=== PATIENT | female | born 1980 | race Caucasian/White ===

== ENCOUNTER 2024-02-10 12:46 | Emergency (ER) | payer MEDICARE, MEDICAID, SELFPAY ==
[2024-02-10 13:01] VITALS: BP 136/89; PULSE 74; TEMP 37.1; O2SAT 98; BMI 25.4
--- NOTE | 2024-02-10 13:41 | CT_ITS ---
The [address] [address] Patient Name: CHRISTINE FLANNERY MRN: [id number] date: 1980 Sex: F Assigned Patient Location: ER Current Patient Location: ER Accession/Order Number: [id number] Exam Date: 02/10/2024 14:35 Report Date: 02/10/2024 15:15 At the request of: LINNETTE GUIDRY Procedure: CT head/brain w con EXAMINATION: CT head/brain w con, 02/10/2024 2:35 PM EDT HISTORY: Headache/chronic HSV infection COMPARISON: None. TECHNIQUE: CT scan of the head was performed without IV contrast. CT dose reduction technique was used, including Automated Exposure Control. FINDINGS: BRAIN PARENCHYMA/CSF SPACES: Ventricles are normal in size for age. There is no hemorrhage, mass effect or midline shift. There are no other significant findings. PARANASAL SINUSES: Clear. SKULL BASE AND CALVARIUM: Normal. EXTRACRANIAL SOFT TISSUES: Normal. CT/CT head/brain w con IMPRESSION: No acute intracranial findings. Electronically authenticated by: LAYNE IBANEZ Date: 02/10/2024 15:15
[2024-02-10 14:10] LABS: BUN Creatinine Ratio 10.5; Calcium 9.9 mg/dL (8.5-10.1); Carbon Dioxide 29.6 mmol/L (21.0-32.0); Chloride 101 mmol/L (98-107); Estimated GFR (African America >60 (>=60); Estimated GFR (Non-African Ame >60 (>=60); Glucose 113 mg/dL (74-106); Potassium 3.6 mmol/L (3.5-5.1); Sodium 138 mmol/L (136-145)
--- NOTE | 2024-02-10 15:21 | ED_ITS ---
HPI HPI - General Adult General Chief complaint: Weakness Stated complaint: ABNORMAL LAB VALUE Time Seen by Provider: 02/10/24 13:41 Source: patient Mode of arrival: walk-in History of Present Illness HPI narrative: This patient was seen after obtaining report from the nursing staff. This patient tells me that she is here because she wants antiviral intravenous therapy. Backing up, she states that for 2 years she has been battling with chronic symptomatology from my pain muscle aches and pains skin rashes headaches. She goes to a clinic in [place]. She showed me her patient's chart and she had extensive laboratory testing with viral titers. Apparently she just got the results of an HSV test last night and she did not want to wait till tomorrow to go over the results with her clinicians. She did test positive HSV- 2 titer. HSV 1 was negative. Her liver function test CBC and chemistries were essentially normal. She had a small increase in her platelet count. She has never seen an eye doctor despite having eye problems for 2 years. She has not seen infectious disease or assistant art director. She has no knowledge of when she actually had HSV-2 infection she says she also has skin lesions that she has been battling for couple of years. She does not have any new chest pain or shortness of breath. She has chronic headache. She does not exhibit any photosensitivity as noted below. She is extraordinarily anxious and frustrated because she does not think anyone is helping her. She decided to come to the [facility] and set up following up with her physicians tomorrow and getting referral perhaps. She is not a drug abuser and has no history of HIV or other immunocompromising autoimmune diseases that she is aware of. Related Data Home Medications ?Medication ?Instructions ?Recorded ?Confirmed atorvastatin 40 mg tablet 40 mg PO DAILY 02/10/24 02/10/24 dextroamphetamine-amphetamine ER 20 mg PO BID 02/10/24 02/10/24 20 mg 24hr capsule,extend release lamotrigine 200 mg tablet 200 mg PO DAILY 02/10/24 02/10/24 lumateperone 42 mg capsule 42 mg PO DAILY 02/10/24 02/10/24 (Caplyta) metformin 500 mg tablet 500 mg PO BID 02/10/24 02/10/24 promethazine 25 mg tablet 25 mg PO BID 02/10/24 02/10/24 tizanidine 4 mg tablet 8 mg PO QPM 02/10/24 02/10/24 Allergies Allergy/AdvReac Type Severity Reaction Status Date / Time No Known Drug Allergies Allergy Verified 02/10/24 13:04 Opioid HPI Opioid Management Most Recent Opioid Data: No Data to Display Exam Narrative Exam Narrative: Her vital signs are stable she does not appear ill or toxic. She is fully ambulatory she shows no gait disturbance. On HEENT examination there is no pharyngitis there is no viral enanthem's. There is no evidence of gingivostomatitis or any type of recent viral infection. Her neck is soft and supple with no meningeal irritation or nuchal rigidity. She does not have photosensitivity. Her conjunctiva are moist and pink the corneas are clear extraocular muscles are normal. She has no swelling of the eyelids. No purulent drainage or discharge. Her lungs were clear with no wheeze rales or rhonchi. Heart sounds are normal with no murmur. She does not have any supraclavicular or cervical adenitis. Abdomen is normal with no organomegaly or splenomegaly. She has no abdominal tenderness. She has multiple healing scars skin disruptions throughout the extremities but no bull's-eye lesions or target lesions. She has no petechia or posterior purpura. Palmar surface does not have any rash. Constitutional Vital Signs, click to edit/add: Last Vital Signs Temp 98.7 F 02/10/24 13:01 Pulse 74 02/10/24 13:01 Resp 16 02/10/24 13:01 BP 136/89 02/10/24 13:01 Pulse Ox 98 02/10/24 13:01 O2 Del Method Room Air 02/10/24 13:01 Course Vital Signs Vital signs: Vital Signs Temperature 98.7 F 02/10/24 13:01 Pulse Rate 74 02/10/24 13:01 Respiratory Rate 16 02/10/24 13:01 Blood Pressure 136/89 02/10/24 13:01 Pulse Oximetry 98 02/10/24 13:01 Oxygen Delivery Method Room Air 02/10/24 13:01 Temperature 98.7 F 02/10/24 13:01 Pulse Rate 74 02/10/24 13:01 Respiratory Rate 16 02/10/24 13:01 Blood Pressure 136/89 02/10/24 13:01 Pulse Oximetry 98 02/10/24 13:01 Oxygen Delivery Method Room Air 02/10/24 13:01 Medical Decision Making MDM Narrative Medical decision making narrative: I spoke with this patient's sister at her request and indicated to her that she just within 12 hours got the results of a HSV-2 titer that are probably chronic in nature. She has no ongoing HSV infections at this time. A CT scan was done at her request despite the lack of any physical findings on her examination to suggest any type of TRIAGE TECHNICIAN infection and hence I do not believe she needs TRIAGE TECHNICIAN lumbar puncture at this time. I spoke with our pharmacist and a course for acute infection or suppression acyclovir would be a drug of choice. She is begging to be started on symptoms I have told her that I am not sure that this is what chronic disease would call for but we can start her on that. I have strongly emphasized that she sees her primary care doctor who ordered this extensive battery of test and get referral to the infectious disease specialist Dr. Johnny Monreal in [facility]. Incidentally her son was evaluated and is very healthy with no evidence of any type of chronic infection here. She will be placed on acyclovir Lab Data Labs: Lab Results 02/10/24 Range/Units 13:51 Sodium 138 (136-145) mmol/L Potassium 3.6 (3.5-5.1) mmol/L Chloride 101 (98-107) mmol/L Carbon Dioxide 29.6 (21.0-32.0) mmol/L Anion Gap 11.0 BUN 8.0 (7.0-18.0) mg/dL Creatinine 0.76 (0.55-1.02) mg/dL Est GFR ( Amer) >60 (>=60) Est GFR (Non-Af Amer) >60 (>=60) BUN/Creatinine Ratio 10.5 Glucose 113 H (74-106) mg/dL Calcium 9.9 (8.5-10.1) mg/dL Discharge Plan Discharge Stand Alone Forms: Portal Instructions Chief Complaint: Weakness Clinical Impression: HSV-2 seropositive Patient Disposition: Home, Self-Care Time of Disposition Decision: 15:28 Prescriptions / Home Meds: No Action atorvastatin 40 mg tablet 40 mg PO DAILY dextroamphetamine-amphetamine 20 mg capsule,extended release 24hr 20 mg PO BID lamotrigine 200 mg tablet 200 mg PO DAILY Caplyta 42 mg capsule 42 mg PO DAILY metformin 500 mg tablet 500 mg PO BID promethazine 25 mg tablet 25 mg PO BID tizanidine 4 mg tablet 8 mg PO QPM Print Language: Yoruba Additional Instructions: See your primary care doctor or the test to consider referral to infectious disease. Acyclovir Referrals: Guilherme Jimenes DO [Primary Care Provider] - 1 week
== END 2024-02-10 15:36 | disposition home or self-care (01) ==
PROVIDERS: Emergency Provider Emergency Medicine Emergency Medical Services; PCP Student in an Organized Health Care Education/Training Program
DX: B00.9 Herpesviral infection, unspecified (principal)
CPT/HCPCS: 36415; 70460; 80048; 99284

== ENCOUNTER 2024-10-24 23:16 | Emergency (ER) | payer MEDICARE, MEDICAID, SELFPAY ==
[2024-10-24 23:22] VITALS: BP 167/99; PULSE 76; TEMP 36.9; O2SAT 99; BMI 24.7
[2024-10-25] MEDS: KETOROLAC TROMETHAMINE 10 MG TABLET PO (00:06)
--- NOTE | 2024-10-25 00:06 | ED_ITS ---
HPI - Ear Problem General Chief complaint: Ear Stated complaint: ear Time Seen by Provider: 10/24/24 23:44 Source: patient Mode of arrival: walk-in Limitations: no limitations History of Present Illness HPI Narrative: cc = right ear pain Pt complains of right ear pain. She said that she was diagnosed with ear infection on 10/19/24 after experiencing URI symptoms and being diagnosed with viral URI at [facility] ED and they enver checked my ears . The [facility] provider prescribed amoxicillin for the right otitis media and then her eardrum perforated 2 days ago and she returned to the [facility] and was switched to cefdinir. Tonight the pain dramatically worsened. Related Data Home Medications ?Medication ?Instructions ?Recorded ?Confirmed acyclovir 200 mg capsule 200 mg PO DAILY 02/10/24 02/10/24 atorvastatin 40 mg tablet 40 mg PO DAILY 02/10/24 02/10/24 dextroamphetamine-amphetamine ER 20 mg PO BID 02/10/24 02/10/24 20 mg 24hr capsule,extend release lamotrigine 200 mg tablet 200 mg PO DAILY 02/10/24 02/10/24 lumateperone 42 mg capsule 42 mg PO DAILY 02/10/24 02/10/24 (Caplyta) metformin 500 mg tablet 500 mg PO BID 02/10/24 02/10/24 promethazine 25 mg tablet 25 mg PO BID 02/10/24 02/10/24 tizanidine 4 mg tablet 8 mg PO QPM 02/10/24 02/10/24 Previous Rx's ?Medication ?Instructions ?Recorded nabumetone 750 mg tablet 750 mg PO BID PRN pain #14 tabs 10/25/24 ofloxacin 0.3 % ear drops 10 drp otic (ear) DAILY 7 days #10 10/25/24 mL Allergies Allergy/AdvReac Type Severity Reaction Status Date / Time No Known Drug Allergies Allergy Verified 10/24/24 23:26 PFSH PFSH Social History Little interest or pleasure in doing things: not at all Feeling down, depressed, or hopeless: not at all Exam Narrative Exam Narrative: Nurses notes and vital signs reviewed and patient is not hypoxic. afebrile General: Well-appearing and in no apparent distress. Skin: Warm, dry, no pallor noted. No rash. Head: Normocephalic, atraumatic. Eye: Pupils are equal, round and EOMI. No scleral icterus. Ears, Nose, Mouth, and Throat: There is some dried wax in the right external auditory canal and the right EAC is swollen markedly tender. I am able to visualize the right tympanic membrane and I do not appreciate any acute perforation although there is some dullness and erythema to the TM. The left TM is clear. Oral mucosa is moist Cardiovascular: Regular Rate and Rhythm without murmur, gallop or rub. Respiratory: No accessory muscle use or respiratory distress. Lungs are clear to auscultation, no wheezing, rales or rhonchi Neurological: A&O x4. No cranial nerve dysfunction observed. No truncal ataxia. Moves all extremities. Sensation intact. Psychiatric: Cooperative and interactive. Normal mood and affect. Constitutional Vital Signs, click to edit/add: Last Vital Signs Temp 98.5 F 10/24/24 23:22 Pulse 76 10/24/24 23:22 Resp 16 10/24/24 23:22 BP 167/99 H 10/24/24 23:22 Pulse Ox 99 10/24/24 23:22 O2 Del Method Room Air 10/24/24 23:22 Course Vital Signs Vital signs: Vital Signs Temperature 98.5 F 10/24/24 23:22 Pulse Rate 76 10/24/24 23:22 Respiratory Rate 16 10/24/24 23:22 Blood Pressure 167/99 H 10/24/24 23:22 Pulse Oximetry 99 10/24/24 23:22 Oxygen Delivery Method Room Air 10/24/24 23:22 Temperature 98.5 F 10/24/24 23:22 Pulse Rate 76 10/24/24 23:22 Respiratory Rate 16 10/24/24 23:22 Blood Pressure 167/99 H 10/24/24 23:22 Pulse Oximetry 99 10/24/24 23:22 Oxygen Delivery Method Room Air 10/24/24 23:22 Medical Decision Making MDM Narrative Medical decision making narrative: Patient's exam is more consistent with early acute right otitis externa than a perforated right tympanic membrane or otitis media, although there is some erythema to the visualized TM. Patient was given oral Toradol in the emergency department discharged home with a prescription for oral nabumetone. She also was prescribed ciprofloxacin drops, which are not ototoxic. She was given referral information for Dr. Marroquin, ear nose and throat physician, for follow-up Discharge Plan Discharge Chief Complaint: Ear Clinical Impression: Otitis media, Otitis externa Patient Disposition: Home, Self-Care Time of Disposition Decision: 00:02 Prescriptions / Home Meds: New nabumetone 750 mg tablet 750 mg PO BID PRN (Reason: pain) Qty: 14 0RF ofloxacin 0.3 % drops 10 drp otic (ear) DAILY 7 Days Qty: 10 0RF Rx Instructions: apply to affected (RIGHT) ear No Action atorvastatin 40 mg tablet 40 mg PO DAILY dextroamphetamine-amphetamine 20 mg capsule,extended release 24hr 20 mg PO BID lamotrigine 200 mg tablet 200 mg PO DAILY Caplyta 42 mg capsule 42 mg PO DAILY metformin 500 mg tablet 500 mg PO BID promethazine 25 mg tablet 25 mg PO BID tizanidine 4 mg tablet 8 mg PO QPM acyclovir 200 mg capsule 200 mg PO DAILY Print Language: Kyrgyz Instructions: Ear Infection (ED) Referrals: Guilherme Jimenes DO [Primary Care Provider] - 1 week
== END 2024-10-25 00:30 | disposition home or self-care (01) ==
PROVIDERS: Emergency Provider Emergency Medicine; PCP Student in an Organized Health Care Education/Training Program
DX: H60.91 Unspecified otitis externa, right ear (principal); H66.91 Otitis media, unspecified, right ear
CPT/HCPCS: 99283

== ENCOUNTER 2024-10-28 23:01 | Emergency (ER) | payer MEDICARE, MEDICAID, SELFPAY ==
[2024-10-28 23:04] VITALS: BP 133/100; PULSE 100; TEMP 36.7; O2SAT 99; BMI 24.7
[2024-10-28 23:30] VITALS: O2SAT 99
[2024-10-28] MEDS: HYDROXYZINE PAMOATE 25 MG CAPSULE PO (23:42)
[2024-10-28 23:54] LABS: Bilirubin Urine NEGATIVE (NEGATIVE); Blood Urine NEGATIVE (NEGATIVE); Clarity Urine CLEAR (CLEAR); Color Urine YELLOW (YELLOW); Glucose Urine UA NEGATIVE (NEGATIVE); Ketones Urine NEGATIVE (NEGATIVE); Leukocyte Esterase Urine NEGATIVE (NEGATIVE); Nitrite Urine POSITIVE (NEGATIVE); Protein Urine NEGATIVE (NEG/TRACE); Specific Gravity Urine <=1.005 (1.005-1.025); Urobilinogen Urine 0.2 EU/dL (0.2-1.0); pH Urine 5.5 (5.0-9.0)
[2024-10-29 00:03] LABS: Bacteria Urine NONE SEEN #/HPF (NONE SEEN); Cast Seen? NONE SEEN #/LPF (NONE SEEN); Crystals Seen? None Seen #/HPF (None Seen); Mucus Urine NONE SEEN (NONE SEEN); RBC Urine 0-2 #/HPF (0-2); Squamous Epithelial Cell Urine FEW #/LPF (NONE/RARE); Urine Culture Indicated NO
[2024-10-29 00:06] LABS: Amphetamine Screen Urine POSITIVE (NEGATIVE); Barbiturates Screen Urine NEGATIVE (NEGATIVE); Benzodiazepines Screen Urine NEGATIVE (NEGATIVE); Buprenorphine Screen Urine NEGATIVE (NEGATIVE); Cannabinoid Screen Urine POSITIVE (NEGATIVE); Cocaine Screen Urine NEGATIVE (NEGATIVE); Methadone Screen Urine NEGATIVE (NEGATIVE); Methamphetamines Screen Urine NEGATIVE (NEGATIVE); Opiate Screen Urine NEGATIVE (NEGATIVE); Oxycodone Screen Urine NEGATIVE (NEGATIVE); Phencyclidine Screen Urine NEGATIVE (NEGATIVE); Tricyclic Antidepressant Urine NEGATIVE (NEGATIVE)
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
[2024-10-29 00:43] VITALS: PULSE 84; O2SAT 98
[2024-10-29 00:46] VITALS: BP 128/84
== END 2024-10-29 00:45 | disposition home or self-care (01) ==
PROVIDERS: Emergency Provider Emergency Medicine; PCP Student in an Organized Health Care Education/Training Program
DX: Z04.89 Encounter for examination and observation for other specified reasons (principal); Z79.899 Other long term (current) drug therapy
CPT/HCPCS: 80307; 81001; 99284; Q0177

== ENCOUNTER 2025-01-13 16:16 | Emergency (ER) | payer MEDICARE, MEDICAID, SELFPAY ==
[2025-01-13 16:25] VITALS: BP 127/85; PULSE 84; TEMP 36.7; O2SAT 96; BMI 25.1
--- NOTE | 2025-01-13 16:40 | ED.GENADUL1 ---
HPI HPI - General Adult General Chief complaint: Eye Problems Stated complaint: L EYE ISSUE Time Seen by Provider: 01/13/25 16:21 Source: patient Mode of arrival: walk-in History of Present Illness HPI narrative: 44-year-old female presents for a red area on her left eye. She noticed it this morning. She does not recall any trauma or vomiting or sneezing or coughing. She is not on blood thinners. No other bruising. She went to an urgent care center and they told her to come directly here. Related Data Home Medications ?Medication ?Instructions ?Recorded ?Confirmed atorvastatin 40 mg tablet 40 mg PO DAILY 02/10/24 01/13/25 dextroamphetamine-amphetamine ER 20 mg PO BID 02/10/24 01/13/25 20 mg 24hr capsule,extend release metformin 500 mg tablet 500 mg PO BID 02/10/24 01/13/25 promethazine 25 mg tablet 25 mg PO BID 02/10/24 01/13/25 tizanidine 4 mg tablet 8 mg PO QPM 02/10/24 01/13/25 cyclobenzaprine 10 mg tablet mg 01/13/25 Allergies Allergy/AdvReac Type Severity Reaction Status Date / Time No Known Drug Allergies Allergy Verified 01/13/25 16:23 Opioid HPI Opioid Management Most Recent Opioid Data: Last Pain Scale 10 10/25/24, 00:06 Ur Phencyclidine Scrn, (NEGATIVE) Negative 10/28/24, 23:45 Review of Systems ROS Narrative A ten point review of systems is negative except as noted above. PFSH PFSH Social History Little interest or pleasure in doing things: several days Feeling down, depressed, or hopeless: several days Exam Narrative Exam Narrative: Nurses note and vital signs reviewed and patient is not hypoxic. General: The patient appears well and in no apparent distress. Patient is resting comfortably on cart. Skin: Warm, dry, no pallor noted. There is no rash noted. Head: Normocephalic, atraumatic Eye: Right conjunctiva is normal. The left has a superior subconjunctival hemorrhage. Globe intact. Anterior chamber clear. No periorbital swelling or erythema. Extraocular movements are intact. Ears, Nose, Mouth, and Throat: oral mucosa is moist. Nares patent. Cardiovascular: Regular Rate and Rhythm Respiratory: Patient is in no distress, no accessory muscle use, lungs are clear to auscultation, no wheezing, rales or rhonchi Back: non-tender GI: Soft and nontender Musculoskeletal: The patient has no evidence of calf tenderness, no pitting edema, symmetrical pulses noted bilaterally Neurological: A&O, normal speech Psychiatric: Cooperative Constitutional Vital Signs, click to edit/add: Last Vital Signs Temp 98.1 F 01/13/25 16:25 Pulse 84 01/13/25 16:25 Resp 16 01/13/25 16:25 BP 127/85 01/13/25 16:25 Pulse Ox 96 01/13/25 16:25 O2 Del Method Room Air 01/13/25 16:25 Course Vital Signs Vital signs: Vital Signs Temperature 98.1 F 01/13/25 16:25 Pulse Rate 84 01/13/25 16:25 Respiratory Rate 16 01/13/25 16:25 Blood Pressure 127/85 01/13/25 16:25 Pulse Oximetry 96 01/13/25 16:25 Oxygen Delivery Method Room Air 01/13/25 16:25 Temperature 98.1 F 01/13/25 16:25 Pulse Rate 84 01/13/25 16:25 Respiratory Rate 16 01/13/25 16:25 Blood Pressure 127/85 01/13/25 16:25 Pulse Oximetry 96 01/13/25 16:25 Oxygen Delivery Method Room Air 01/13/25 16:25 Medical Decision Making MDM Narrative Medical decision making narrative: Findings are discussed with the patient and she was reassured. Treatment diagnosis and follow-up were discussed thoroughly. Differential Diagnosis Differential Diagnosis: Subconjunctival hemorrhage, conjunctivitis Discharge Plan Discharge Chief Complaint: Eye Problems Clinical Impression: Subconjunctival hemorrhage Patient Disposition: Home, Self-Care Time of Disposition Decision: 16:38 Condition: Good Mode of Transportation: Private Vehicle Prescriptions / Home Meds: No Action atorvastatin 40 mg tablet 40 mg PO DAILY dextroamphetamine-amphetamine 20 mg capsule,extended release 24hr 20 mg PO BID metformin 500 mg tablet 500 mg PO BID promethazine 25 mg tablet 25 mg PO BID tizanidine 4 mg tablet 8 mg PO QPM cyclobenzaprine 10 mg tablet Print Language: Tamazight Referrals: Guilherme Jimenes DO [Primary Care Provider] - 1 week
--- OUTSIDE RECORDS SUMMARY | 2025-01-13 18:50 | XMS_ITS | CCD ---
Author Organization [facility] Care Team Providers Care Subway Train Driver Name Role Phone Link, DO Erlin Fuchs Primary Care Provider [phone] YOSEF Pat Attending Provider Link, Erlin Fuchs Primary Care Physician [phone] YUMIKO .JODY Admitting Unavailable JODY CASTREJON Attending Unavailable [facility] Unavailable AAYUSH ., ANIBAL TOUSSAINT Consulting Unavailabl e Link, DO Erlin Fuchs Primary Care Provider [phone] Link, DO Erlin Fuchs Attending Provider Link, DO Erlin Fuchs Primary Care Provider [phone] Link, DO Erlin Fuchs Attending Provider Marin Garcia Primary Care Provider Erlin Felipe MD Unavailable BRENTON Adamson Emergency Provider Link, DO Erlin Fuchs Primary Care Provider [phone] BRENTON Low Emergency Provider Link, DO Erlin Fuchs Primary Care Provider BRENTON Low Emergency Provider [facility] Primary Care Prov ider DO Adoflo Tsai Emergency Provider [phone] DO Guilherme Dotson Attending Provider [facility] Primary Care Prov ider DO Guilherme Dotson Primary Care Provider YOSEF Pat Attending Provider [phone] [facility] Primary Care Prov ider DO Guilherme Dotson Attending Provider Guilherme Dotson DO Primary Care Provider [phone] Adolfo Tsai DO Emergency Provider [phone] Sandra Desai MD Emergency Provider [phone] Guilherme Dotson MD Primary Care Provider [phone] Adolfo Tsai Admitting Unavailable [facility], [facility] Adolfo Tsai Attending Unavailable Adolfo Tsai Admitting Unavailable Adolfo Tsai Attending Unavailable Guilherme Dotson Primary [facility] Unavailable [facility], [facility] Care [facility] Guilherme Dotson Attending Unavailable Guilherme Dotson Admitting Unavailable Guilherme Dotson Attending Unavailable Guilherme Dotson Admitting Unavailable Guilherme Dotson Primary Care Unavailable Brisa Pat Admitting Unavailable Brisa Pat Attending Unavailable [facility], [facility] Guilherme Dotson Attending Unavailable Guilherme Dotson Admitting Unavailable [facility], [facility] Guilherme Dotson Attending Unavailable Guilherme Dotson Admitting Unavailable [facility], [facility] Guilherme Dotson Attending Unavailable Guilherme Dotson Admitting Unavailable Sandra Desai Attending Unavailable Guilherme Dotson Primary Care Unavailable Sandra Desai Admitting Unavailable YASMIN MARTINEZ Attending UnavailYASMIN Munson Attending UnavailVIDA Park Referring Unavailable YASMIN MARTINEZ Attending UnavailYASMIN Munson Attending UnavailYASMIN Munson Attending UnavailVIDA Park Attending Unavailable GUILHERME DOTSON Referring Unavailable Medications Current Medications Medication Drug Class(es) Dates Sig (Normalized) Sig (Original) acetaminophen 325 mg / HYDROcodone bitartrate 5 mg oral tablet (17 sources) Opioid Agonist Start: 05-02-2021 [place] 325 mg-5 mg oral tablet 1 tab(s), Oral, q4hr for pain, 12 tab(s), Refill(s) 0, 1-2 tabs PO q 4-6 hrs prn severe pain. Do NOT exceed 10 tabs per day, [facility] #[id number], 157, cm, 04/26/21 7:56:00 EDT, Height/Length Dosing, 67.5, kg, 04/26/21 7:56:00 EDT, Weight Dosing... Start Date: 05/02/21 Status: Ordered Start: 10-25-2020 End: 11-16-2020 take 1 tablet by mouth every six hours as needed for pain Hydrocodone-Acetaminophen 5-325 mg table t Discontinued 1 TAB PO Q6H as needed for pain 10 October 25, 2020 November 16, 2020 8:39pm acyclovir 400 mg oral tablet (11 sources) Herpesvirus Nucleoside Analog DNA Polymerase Inhibitor, Herpes Simplex Virus Nucleoside Analog DNA Polymerase Inhibitor, Herpes Zoster Virus Nucleoside Analog DNA Polymerase Inhibitor Start: 03-13-2024 Acyclovir 400 mg tablet Active 400 MG PO March 12, 2024 11:00pm Start: 02-10-2024 take 1 capsule by mo [facility] five times daily acyclovir (Zovirax) 200 MG capsule TAKE 1 CAPSULE (200mg) BY MOUTH FIVE times daily for TEN days 02/10/2024 Active 24 hr amphetamine aspartate 5 mg / amphetamine sulfate 5 mg / dextroamphetamine saccharate 5 mg / dextroamphetamine sulfate 5 mg extended release oral capsule (20 sources) Central Nervous System Stimulant Start: 08-25-2023 take 1 capsule by mouth twice daily Dextroamphetamine-Amphetamine 20 mg capsule,extended release 24hr Active 20 MG PO Twice daily August 25, 2023 12:00am Start: 08-22-2023 amphetamine-de xtroamphetamine XR (Adderall XR) 20 MG 24 hr capsule every 12 (twelve) hours 08/22/2023 Active Start: 05-19-2023 End: 08-25-2023 Dextroamphetamine-Amphetamin e 15 mg capsule,extended release 24hr Discontinued PO May 18, 2023 11:00pm August 25, 2023 7:28pm atorvastatin 40 mg oral tablet (12 sources) HMG-CoA Reductase Inhibitor Start: 02-01-2024 End: 03-13-2024 atorvastatin (Lipitor) 40 MG tablet 1 (one) time each day at the same time 02/01/2024 Active Start: 06-20-2019 take 1 tablet by devin once daily atorvastatin 40 mg Tab 40 mg = 1 tab(s), Oral, Daily, # 30 tab(s), Refills(s) 0, High cholesterol Start Date: 06/20/19 Status: Ordered cyclobenzaprine hydrochloride 10 mg oral tablet (20 sources) Muscle Relaxant Start: 05-19-2023 End: 03-13-2024 cyclobenzaprine (Flexeril) 10 MG tablet Three times daily 05/19/2023 Active Start: 05-19-2023 Cyclobenzaprin e Active MG TABLET May 19, 2023 12:00am Start: 04-22-2021 take 1 tablet by devin three times daily as needed for muscle spasms cyclobenzaprine 10 mg Tab 10 mg = 1 tab(s), Oral, TID, PRN for spasm Start Date: 04/22/21 Status: Ordered hydrOXYzine pamoate 25 mg oral capsule (20 sources) Antihistamine Start: 10-11-2023 End: 03-13-2024 take 1 capsule by mouth three times daily as needed hydrOXYzine pamoate (Vistaril) 25 MG capsule 1-2 caps as needed for anxiety Orally three times daily 10/11/2023 Active Start: 03-10-2022 End: 05-19-2023 take 1 tablet by mouth every six hours as needed Hydroxyzine Hcl 25 mg tablet Discontinued 25 MG PO Q6H as needed for itching March 09, 2022 11:00pm May 19, 2023 4:27pm Start: 02-13-2020 take 2 capsules by [facility] four times daily Vistaril 50 mg Cap 100 mg = 2 cap(s), Oral, QID, # 240 cap(s), Refills(s) 5, Pharmacy: [facility] #[id number], 157, cm, 10/27/19 10:35:00 EDT, Height/Length Measured, 85.1, kg, 10/27/19 10:35:00 EDT, Weight Measured Start Date: 02/13/20 Status: Ordered lamoTRIgine 200 mg oral tablet (20 sources) Mood Stabilizer, Anti-epileptic Agent Start: 08-22-2019 take 1 tablet by mouth once daily Lamotrigine 200 mg tablet Active 200 MG PO Daily November 15, 2020 11:00pm lumateperone 42 mg oral capsule (11 sources) Start: 10-11-2023 Caplyta 42 MG capsule 1 (one) time each day at the same time 10/11/2023 Active metFORMIN hydrochloride 500 mg oral tablet (19 sources) Biguanide Start: 05-19-2023 metFORMIN (Glucophage) 500 MG tablet 1 (one) time each day at the same time 05/19/2023 Active Start: 05-19-2023 Metformin Acti ve MG TABLET May 19, 2023 12:00am ondansetron 4 mg oral tablet (1 source) Serotonin-3 Receptor Antagonist Start: 10-16-2024 take 1 tablet by mouth every eight hours Ondansetron Hcl 4 mg tablet Active 4 MG PO Every 8 hours 6 2 October 16, 2024 12:00am rimegepant 75 mg disintegrating oral tablet (19 sources) Start: 05-19-2023 Nurtec 75 MG tablet dispersible 1 tablet on the tongue and allow to dissolve Orally 05/19/2023 Active tiZANidine 4 mg oral tablet (17 sources) Central alpha-2 Adrenergic Agonist Start: 11-16-2020 take 2 tablets by mouth once daily at bedtime Tizanidine 4 mg tablet Active 8 MG PO Daily at bedtime November 15, 2020 11:00pm Start: 11-16-2020 take 8 mg by mouth o nce daily at bedtime Tizanidine Active 8 MG PO Daily at bedtime November 16, 2020 12:00am Start: 06-20-2019 take 1 capsule by [facility] at bedtime as needed for muscle spasms tizanidine 4 mg oral capsule 4 mg = 1 cap(s), Oral, Bedtime, PRN Spasm, Refills(s) 0 Start Date: 06/20/19 Status: Ordered Zofran ODT 8 mg Tab-Dis (1 source) Start: 05-02-2021 take 1 tablet by mouth every six hours Zofran ODT 8 mg Tab-Dis 8 mg = 1 tab(s), Oral, q6hr, # 20 tab(s), Refills(s) 0, Pharmacy: [id number], 157, cm, 04/26/21 7:56:00 EDT, Height/Length Dosing, 67.5, kg, 04/26/21 7:56:00 EDT, Weight Dosing Start Date: 05/02/21 Status: Ordered Completed/Discontinued Medications Medication Drug Class(es) Dates Sig (Normalized) Sig (Original) acetaminophen 325 mg / oxyCODONE hydrochloride 5 mg oral tablet (20 sources) Opioid Agonist Start: 05-19-2023 End: 08-25-2023 take 1 tablet by mouth every eight hours as needed for pain Oxycodone-Acetamino phen (Percocet) 5-325 mg tablet Discontinued 1 TAB PO Q8H as needed for pain 7 2 May 19, 2023 August 25, 2023 7:29pm Start: 09-18-2021 End: 05-19-2023 take 1 tablet by mouth every six hours as needed for pain Oxycodone-Acetaminophen (Percocet) 5-325 mg tablet Discontinued 1 TAB PO Q6H as needed for pain 10 3 September 18, 2021 May 19, 2023 4:27pm amoxicillin 875 mg / clavulanate 125 mg oral tablet (16 sources) Penicillin-class Antibacterial Start: 09-18-2021 End: 05-19-2023 take 1 tablet by mouth twice daily Amoxicillin-Pot Clavulanate (Augmentin) 875-125 mg tablet Discontinued 1 TAB PO Twice daily 20 September 18, 2021 12:00am May 19, 2023 4:26pm brexpiprazole 1 mg oral tablet (13 sources) Atypical Antipsychotic Start: 05-19-2023 End: 08-25-2023 Brexpiprazole (Rexulti) 1 mg tablet Discontinued MG TABLET May 18, 2023 11:00pm August 25, 2023 7:28pm diphenhydrAMINE hydrochloride 0.02 mg/mg topical gel (5 sources) Histamine-1 Receptor Antagonist Start: 03-13-2024 End: 03-13-2024 Diphenhydramine Hcl (Anti-Itch (Diphenhydramine)) 2 % gel Discontinued 1 APPLIC TOPICAL Three times daily March 12, 2024 11:00pm March 13, 2024 12:57pm escitalopram 20 mg oral tablet (1 source) Serotonin Reuptake Inhibitor Start: 05-12-2010 escitalopram oxalate(LEXAPRO 20 MG TAB) Take one(1) tablet daily. 0 05/12/2010 Active Comment on above: Take one(1) tablet d aily. ibuprofen 600 mg oral tablet (17 sources) Nonsteroidal Anti-inflammatory Drug Start: 09-18-2021 End: 03-13-2024 take 1 tablet by mouth every eight hours as needed for pain Ibuprofen 600 mg tablet Discontinued 600 MG PO Q8H as needed for pain September 18, 2021 12:00am March 13, 2024 8:18am Start: 05-02-2021 take 1 tablet by devin th three times daily at mealtime ibuprofen 800 mg Tab 800 mg = 1 tab(s), Oral, TID, with food or milk, do not take with any other NSAIDs, # 90 tab(s), Refills(s) 0, Pharmacy: [facility] #[id number], 157, cm, 04/26/21 7:56:00 EDT, Height/Length Dosing, 67.5, kg, 04/26/21 7:56:00 EDT, Weight Dosing Start Date: 05/02/21 Status: Ordered lidocaine 0.04 mg/mg medicated patch (16 sources) Antiarrhythmic, Amide Local Anesthetic Start: 11-16-2020 End: 05-19-2023 apply 1 dose topically every twenty-four hours as needed for pain Lidocaine 4 % adhesive patch,medicated Discontinued 1 PATCH TOPICAL Q24H as needed for pain November 15, 2020 11:00pm May 19, 2023 4:27pm may leave on for up to 12 hrs evening dosing 24 hr methylphenidate hydrochloride 60 mg extended release oral capsule (13 sources) Central Nervous System Stimulant Start: 05-19-2023 End: 08-25-2023 take 1 mg by mouth in the evening Methylphenidate Hcl (Jornay Pm) 60 mg capsule,del rel,ext rel sprink Discontinued MG PO May 18, 2023 11:00pm August 25, 2023 7:29pm mirtazapine 7.5 mg oral tablet (11 sources) Start: 03-13-2024 End: 03-13-2024 take 1 tablet by mouth once daily at bedtime Mirtazapine 7.5 mg tablet Discontinued 7.5 MG PO Daily at bedtime March 12, 2024 11:00pm March 13, 2024 12:57pm naproxen 500 mg oral tablet (16 sources) Nonsteroidal Anti-inflammatory Drug Start: 09-23-2020 End: 11-16-2020 take 1 tablet by mouth twice daily as needed for pain Naproxen 500 mg tablet Discontinued 500 MG PO Twice daily as needed for pain 14 February 4th, 2021 12:00am November 16, 2020 8:39pm oxyCODONE hydrochloride 5 mg oral capsule (1 source) Opioid Agonist Start: 05-12-2010 OXYCODONE 5 MG CAP Take one(1) capsule every six(6) to eight(8) hours as needed for pain. 0 05/12/2010 Active Comment on above: Take one(1) capsule every six(6) to eight(8) hours as needed for pain. permethrin 50 mg/ml topical cream (16 sources) Pyrethroid Start: 03-10-2022 End: 05-19-2023 Permethrin 5 % cream Discontinued 1 APPLIC TOPICAL Once 60 March 09, 2022 11:00pm May 19, 2023 4:26pm leave on for 8 to14 hrs before washing off Start: 03-10-2022 End: 05-19-2023 Permethrin Discontinued 1 AP PLIC TOPICAL Once 60 March 10, 2022 12:00am May 19, 2023 5:26pm leave on for 8 to14 hrs before washing off predniSONE 20 mg oral tablet (13 sources) Start: 05-19-2023 End: 08-25-2023 take 3 tablets by mouth once daily at mealtime Prednisone 20 mg tablet Discontinued 60 MG PO Daily May 18, 2023 11:00pm August 25, 2023 7:29pm administer with food or milk Start: 05-19-2023 End: 08-25-2023 take 60 mg by mouth once daily at mealtime Prednisone Discontinued 60 MG PO Daily May 19, 2023 12:00am August 25, 2023 8:29pm administer with food or milk promethazine hydrochloride 25 mg rectal suppository (20 sources) Phenothiazine Start: 08-25-2023 End: 03-13-2024 Promethazine 25 mg suppository Discontinued 25 MG PA EVERY 4-6 HOURS as needed for nausea and vomiting August 25, 2023 12:00am March 13, 2024 8:17am Start: 08-25-2023 End: 03-13-2024 Promethazine Discontinued 25 MG PA EVERY 4-6 HOURS August 25, 2023 1:00am March 13, 2024 9:17am Start: 05-19-2023 promethazine ( Phenergan) 25 MG tablet every 12 (twelve) hours 05/19/2023 Active Start: 05-19-2023 take 1 tablet by devin th twice daily Promethazine 25 mg tablet Active 25 MG PO Twice daily May 18, 2023 11:00pm Start: 05-19-2023 Promethazine A ctive MG TABLET May 19, 2023 12:00am Start: 04-22-2021 take 1 tablet by devin th three times daily as needed for nausea promethazine 12.5 mg oral tablet 12.5 mg = 1 tab(s), Oral, TID, PRN as needed for nausea/vomiting Start Date: 04/22/21 Status: Ordered propranolol hydrochloride 10 mg oral tablet (17 sources) beta-Adrenergic Daren Start: 11-16-2020 End: 05-19-2023 take 1 tablet by mouth twice daily Propranolol 10 mg tablet Discontinued 10 MG PO Twice daily November 15, 2020 11:00pm May 19, 2023 4:27pm QUEtiapine 50 mg oral tablet (18 sources) Atypical Antipsychotic Start: 11-16-2020 End: 05-19-2023 take 1 tablet by mouth three times daily Quetiapine 50 mg tablet Discontinued 50 MG PO Three times daily November 15, 2020 11:00pm May 19, 2023 4:27pm Start: 12-12-2019 take 1 tablet by devin at bedtime quetiapine 400 mg oral tablet 400 mg = 1 tab(s), Oral, Bedtime, # 30 tab(s), Refills(s) 5, Pharmacy: [id number], 157, cm, 10/27/19 10:35:00 EDT, Height/Length Measured, 85.1, kg, 10/27/19 10:35:00 EDT, Weight Measured Start Date: 12/12/19 Status: Ordered Start: 12-10-2019 take 0.5 tablet by m out three times daily quetiapine 50 mg oral tablet 0.5 tab, Oral, TID, may take 4th dose daily if needed, # 60 tab(s), Refills(s) 5, Pharmacy: [id number], 157, cm, 10/27/19 10:35:00 EDT, Height/Length Measured, 85.1, kg, 10/27/19 10:35:00 EDT, Weight Measured Start Date: 12/10/19 Status: Ordered topiramate 100 mg oral tablet (17 sources) Start: 11-16-2020 End: 05-19-2023 take 1 tablet by mouth twice daily Topiramate 100 mg tablet Discontinued 100 MG PO Twice daily November 15, 2020 11:00pm May 19, 2023 4:27pm Start: 04-23-2020 take 1 tablet by devin th twice daily topiramate 50 mg Tab 50 mg = 1 tab(s), Oral, BID, # 60 tab(s), Refills(s) 2, Pharmacy: [facility]14, 157, cm, 04/23/20 15:54:00 EDT, Height/Length Dosing, 85.1, kg, 04/23/20 15:54:00 EDT, Weight Dosing Start Date: 04/23/20 Status: Ordered Problems Active Problems Problem Classification Problem Date Documented Date Episodic/Chronic Abdominal pain (13 sources) Epigastric pain; Translations: [Epigastric pain] Onset: 10-15-2024 08-25-2023 Episodic Anxiety disorders (20 sources) Anxiety; Translations: [Anxiety disorder, unspecified] Onset: 10-20-2024 03-13-2024 Chronic Diabetes mellitus without complication (5 sources) Prediabetes; Translations: [Prediabetes] 03-13-2024 Episodic Disorders of lipid metabolism (6 sources) Familial hypercholesterolemia; Translations: [Hypercholesterolemia ] 04-22-2021 Chronic Disorders of teeth and jaw (20 sources) Pain; Translations: [Dental caries, unspecified] 09-18-2021 Episodic Headache; including migraine (1 source) Migraine 04-22-2021 Chronic Malaise and fatigue (1 source) Chronic fatigue, unspecified; Translations: [Chronic fatigue, unspecified] Onset: 03-19-2024 Chronic Mood disorders (20 sources) Depressive disorder; Translations: [Episodic mood disorder] Onset: 10-20-2024 04-22-2021 Chronic Nausea and vomiting (1 source) Nausea with vomiting, unspecified; Translations: [Nausea with vomiting, unspecified] Onset: 10-16-2024 Episodic Open wounds of extremities (16 sources) Laceration of right thumb; Translations: [Laceration without foreign body of right thumb without damage to nail, initial encounter] 09-23-2020 Episodic Other connective tissue disease (16 sources) Musculoskeletal pain; Translations: [Myalgia, other site] 11-16-2020 Episodic Other connective tissue disease (3 sources) Trigger thumb of right hand; Translations: [Trigger thumb, right thumb] 05-20-2024 Episodic Other connective tissue disease (1 source) Trigger thumb, right thumb; Translations: [Trigger finger (acquired)] 05-20-2024 Episodic Other liver diseases (5 sources) Steatosis of liver; Translations: [Fatty (change of) liver, not elsewhere classified] 03-13-2024 Chronic Other nervous system disorders (6 sources) Carpal tunnel syndrome; Translations: [Carpal tunnel syndrome, unspecified upper limb] 04-22-2021 Chronic Other nervous system disorders (1 source) Complex regional pain syndrome 04-22-2021 Chronic Other screening for suspected conditions (not mental disorders or infectious disease) (6 sources) Viral antibody level - finding; Translations: [Abnormal immunological findings in specimens from other organs, systems and tissues] 03-13-2024 Episodic Other skin disorders (16 sources) Eruption; Translations: [Rash and other nonspecific skin eruption] 03-10-2022 Episodic Other skin disorders (4 sources) Rash and other nonspecific skin eruption; Translations: [RASH OTH NONSPECIFIC SKIN ERUPTION] Onset: 10-11-2022 Episodic Other skin disorders (4 sources) Skin lesion; Translations: [Disorder of the skin and subcutaneous tissue, unspecified] 03-13-2024 Episodic Other skin disorders (2 sources) Disorder of the skin and subcutaneous tissue, unspecified; Translations: [Unspecified disorder of skin and subcutaneous tissue] 03-13-2024 Episodic Spondylosis; intervertebral disc disorders; other back problems (13 sources) Low back pain; Translations: [Lumbar back pain] 05-19-2023 Episodic Superficial injury; contusion (16 sources) Contusion of chest; Translations: [Contusion of unspecified front wall of thorax, initial encounter] 10-25-2020 Episodic Viral infection (13 sources) Viral disease; Translations: [Viral infection, unspecified] 08-25-2023 Episodic Past or Other Problems Problem Classification Problem Date Documented Date Episodic/Chronic Coagulation and hemorrhagic disorders (1 source) Spontaneous ecchymoses; Translations: [Spontaneous ecchymoses] Onset: 01-19-2024 Episodic Genitourinary symptoms and ill-defined conditions (1 source) Dysuria; Translations: [Dysuria] Onset: 03-03-2024 Episodic Immunizations and screening for infectious disease (1 source) Encounter for screening for infections with a predominantly sexual mode of transmission; Translations: [Encounter for screening for infections with a predominantly sexual mode of transmission] Onset: 02-28-2024 Episodic Nonspecific chest pain (1 source) Chest pain, unspecified; Translations: [Chest pain, unspecified] Onset: 11-20-2023 Episodic Other aftercare (2 sources) Other long term care pharmacist (current) drug therapy; Translations: [OTH TOOLING SPECIALIST CURRENT DRUG THERAPY] Onset: 10-12-2022 Episodic Other non-traumatic joint disorders (1 source) Pain in left shoulder; Translations: [Pain in left shoulder] Onset: 02-16-2024 Episodic Other non-traumatic joint disorders (1 source) Pain in unspecified joint; Translations: [Pain in unspecified joint] Onset: 01-19-2024 Episodic Results Test Name Value Interpretation Reference Range Facility Alanine aminotransferase [En zymatic activity/volume] in Serum or PlasmaOrdered By: Sandra Desai on 10-16-2024 ALT [Catalytic activity/Vol] Alanine aminotransferase [Enzymatic activity/volume] in Serum or Plasma 7-52 [facility] Albumin [Mass/volume] in Ser um or Plasma by Bromocresol green (BCG) dye binding methoOrdered By: Sandra Desai on 10-16-2024 Albumin BCG dye [Mass/Vol] Albumin [Mass/volume] in Serum or Plasma by Bromocresol green (BCG) dye binding metho 3.5-5.7 [facility] Alkaline phosphatase [Enzyma tic activity/volume] in Serum or PlasmaOrdered By: Sandra Desai on 10-16-2024 ALP [Catalytic activity/Vol] Alkaline phosphatase [Enzymatic activity/volume] in Serum or Plasma 34-104 [facility] Appearance of UrineOrdered B y: Sandra Desai on 10-16-2024 Appearance (U) Urine appearance Clear [facility] Aspartate aminotransferase [ Enzymatic activity/volume] in Serum or PlasmaOrdered By: Sandra Desai on 10-16-2024 AST [Catalytic activity/Vol] Aspartate aminotransferase [Enzymatic activity/volume] in Serum or Plasma 13-39 [facility] Bilirubin Test strip Ql (U)O rdered By: Sandra Desai on 10-16-2024 Bilirubin Ql (U) Bilirubin.total [Presence] in Urine by Test strip Negative [facility] Bilirubin.total [Mass/volume ] in Serum or PlasmaOrdered By: Sandra Desai on 10-16-2024 Bilirubin [Mass/Vol] Bilirubin.total [Mass/volume] in Serum or Plasma 0.3-1.0 [facility] COVID Cepheid NegativeOrdere d By: Sandra Desai on 10-16-2024 SARS-CoV-2 (COVID-19) Ab IA Ql COVID Cepheid Negative [facility] Comment on above: This is a duplicate Cepheid Xpert Xpress CoV-2/Flu/RSV Plus RNA by RT-PCR result to be used for statistical tracking purpose only. COVID-19 / Flu A/B / RSV PCR on 10-16-2024 SARS-CoV-2 (COVID-19) RNA OG+probe Ql (Unsp spec) COVID-19 Cepheid Result Negative for SARS-CoV-2 RNA by RT-PCR Flu A Cepheid Result Negative for Flu A RNA by RT-PCR Flu B Cepheid Result Negative for Flu B RNA by RT-PCR RSV Cepheid Result Negative for RSV RNA by RT-PCR COVID19 Blank Space ---- Reference: Negative COVID19 Blank Space ---- Cepheid Disclaimer The Cepheid Xpert Xpress CoV-2/Flu/RSV Plus has Cepheid Disclaimer not been FDA cleared or approved; this test has Cepheid Disclaimer been authorized by FDA under an EUA for use by Cepheid Disclaimer authorized laboratories; this test has been Cepheid Disclaimer authorized only for the simultaneous qualitative Cepheid Disclaimer detection and differentiation of nucleic acids from Cepheid Disclaimer SARS-CoV-2, influenza A, influenza B, and Cepheid Disclaimer respiratory syncytial virus (RSV), and not for any Cepheid Disclaimer other viruses or pathogens; and this test is only Cepheid Disclaimer authorized for the duration of the declaration that Cepheid Disclaimer circumstances exist justifying the authorization of Cepheid Disclaimer emergency use of in vitro diagnostic tests for Cepheid Disclaimer detection and/or diagnosis of COVID-19 under Cepheid Disclaimer Section 564(b)(1) of the Act, 21 U.S.C. 360bbb- Cepheid Disclaimer 3(b)(1), unless the authorization is terminated or Cepheid Disclaimer revoked sooner. PERFORMED BY: [facility] [id number] [place] [address] PATHOLOGIST RETURNING OFFICER LAUREL CAT M.D. Normal [facility] [facility] Comment on above: Performed By: #### C EPHEID NEG, COVID19 FLU RSV ####[facility] [address] [place] [address] [facility] Calcium [Mass/volume] in Ser um or PlasmaOrdered By: Sandra Desai on 10-16-2024 Calcium [Mass/Vol] Calcium [Mass/volume ] in Serum or Plasma 8.6-10.3 [facility] Carbon dioxide, total [Moles /volume] in Serum or PlasmaOrdered By: Sandra Desai on 10-16-2024 CO2 [Moles/Vol] Carbon dioxide, tota l [Moles/volume] in Serum or Plasma 21.0-31.0 [facility] Cepheid COVID PCR Negativeon 10-16-2024 SARS-CoV-2 (COVID-19) RNA OG+probe Ql (Unsp spec) Negative Normal Negative [facility] Comment on above: Result Comment: This is a duplicate Cepheid Xpert Xpress CoV-2/Flu/RSV Plus RNA by RT-PCR result to be used for statistical tracking purpose only. PERFORMED BY: [facility] [address] [place] [address] PATHOLOGIST RETURNING OFFICER LAUREL CAT M.D. Performed By: #### C EPHEID NEG, COVID19 FLU RSV ####[address] Chloride [Moles/volume] in S minh or PlasmaOrdered By: Sandra Desai on 10-16-2024 Chloride [Moles/Vol] Chloride [Moles/vol ume] in Serum or Plasma 98-107 [facility] Color Auto (U)Ordered By: Eda Desai on 10-16-2024 Color (U) Color of Urine by Auto Yellow [facility] Complete Blood Count Auto Di ffon 10-16-2024 Basophils (Bld) [#/Vol] 0.1 10*3/uL Normal 0.0-0.2 [facility] Comment on above: Result Comment: PERF ORMED BY: [facility] [address] [address] PATHOLOGIST RETURNING OFFICER LAUREL CAT M.D. Performed By: #### M G, CMP, CBC ####[place] [id number] [facility] Basophils/100 WBC (Bld) 0.6 % Normal . T scottie [facility] Comment on above: Performed By: #### M G, CMP, CBC ####[address] Eosinophils (Bld) [#/Vol] 0.0 10*3/uL Normal 0.0-0.45 [facility] Comment on above: Performed By: #### M G, CMP, CBC ####[place] [id number] [facility] Eosinophils/100 WBC (Bld) 0.4 % Normal . [facility] Comment on above: Performed By: #### M G, CMP, CBC ####[place] [id number] [facility] Erythrocyte distribution width (RBC) [Ratio] 12.7 % Normal 11.9-15.3 [facility] Comment on above: Performed By: #### M G, CMP, CBC ####[address] Hematocrit (Bld) [Volume fraction] 37.5 % Normal 34.0-46.4 [facility] Comment on above: Performed By: #### M G, CMP, CBC ####[address] Hemoglobin (Bld) [Mass/Vol] 13.6 g/dL Normal 11.8-15.4 [facility] Comment on above: Performed By: #### M G, CMP, CBC ####[address] Lymphocytes (Bld) [#/Vol] 1.7 10*3/uL Normal 1.00-4.8 [facility] Comment on above: Performed By: #### [place], CMP, CBC ####[address] Lymphocytes/100 WBC (Bld) 16.4 % Normal . [facility] Comment on above: Performed By: #### M G, CMP, CBC ####[address] MCH (RBC) [Entitic mass] 28.6 pg Normal 24.7-34.3 [facility] Comment on above: Performed By: #### [place], CMP, CBC ####[address] MCV (RBC) [Entitic vol] 79.0 fL Low 80-100 T he [facility] Comment on above: Performed By: #### M G, CMP, CBC ####[address] Mean Corpuscular HGB Conc 36.2 g/dL High 32.0-35.0 [facility] Comment on above: Performed By: #### M G, CMP, CBC ####[address] Monocytes (Bld) [#/Vol] 0.4 10*3/uL Normal 0.0-0.8 [facility] Comment on above: Performed By: #### [place], CMP, CBC ####[address] [address] [facility] Monocytes/100 WBC (Bld) 19.12 % Normal 0.00-20.00 [facility] Comment on above: Result Comment: For adults in ED, MDW > 20.0 may be associated with a higher risk of sepsis during the first 12 hrs of hospital admission Performed By: #### M G, CMP, CBC ####[address] [address] [facility] Monocytes/100 WBC (Bld) 3.5 % Normal . [facility] Comment on above: Performed By: #### [place], CMP, CBC ####[address] [address] [facility] Neutrophils (Bld) [#/Vol] 8.2 10*3/uL High 1.8-7.7 [facility] Comment on above: Performed By: #### [place] G, CMP, CBC ####[address] [address] [facility] Neutrophils/100 WBC (Bld) 79.1 % Normal . [facility] Comment on above: Performed By: #### [place], CMP, CBC ####[address] [address] [facility] NRBC% 0.1 /100{WBC} Normal 0-0.5 [facility] Comment on above: Performed By: #### M G, CMP, CBC ####[address] [address] [facility] Platelet mean volume (Bld) [Entitic vol] 7.2 fL Normal 6.3-10.7 [facility] Comment on above: Performed By: #### M G, CMP, CBC ####[address] [address] [facility] Platelets (Bld) [#/Vol] 514 10*3/uL High 150-450 [facility] Comment on above: Performed By: #### M G, CMP, CBC ####[place] [id number] [facility] RBC (Bld) [#/Vol] 4.74 10*6/uL Normal 3.60-5.00 [facility] Comment on above: Performed By: #### M G, CMP, CBC ####[place] [id number] [facility] WBC (Bld) [#/Vol] 10.3 10*3/uL Normal 3.8-11.6 [facility] Comment on above: Performed By: #### M G, CMP, CBC ####[place] [id number] [facility] Comprehensive Metabolic Pane susan 10-16-2024 Albumin [Mass/Vol] 4.6 g/dL Normal 3.5-5.7 [facility] Comment on above: Performed By: #### M Perico, CMP, CBC ####[place] [id number] [facility] Albumin/Globulin [Mass ratio] 1.4 {ratio} Normal [facility] Comment on above: Performed By: #### [place], CMP, CBC ####[place] [id number] [facility] ALP [Catalytic activity/Vol] 57 U/L Normal 34-104 [facility] Comment on above: Performed By: #### [place], CMP, CBC ####[place] [id number] [facility] ALT [Catalytic activity/Vol] 34 U/L Normal 7-52 [facility] Comment on above: Performed By: #### M G, CMP, CBC ####[place] [id number] [facility] Anion gap [Moles/Vol] 11.1 mmol/L Normal 6.0-15.0 [facility] e [facility] Comment on above: Performed By: #### M G, CMP, CBC ####[place] [id number] [facility] AST [Catalytic activity/Vol] 27 U/L Normal 13-39 [facility] Comment on above: Performed By: #### M G, CMP, CBC ####[place] [id number] [facility] Bilirubin [Mass/Vol] 0.6 mg/dL Normal 0.3-1.0 [facility] Comment on above: Performed By: #### M G, CMP, CBC ####[place] [id number] [facility] Calcium [Mass/Vol] 9.7 mg/dL Normal 8.6-10.3 [facility] Comment on above: Performed By: #### M G, CMP, CBC ####[place] [id number] [facility] Chloride [Moles/Vol] 104 mmol/L Normal 98-107 [facility] Comment on above: Performed By: #### M G, CMP, CBC ####[address] CO2 [Moles/Vol] 26.9 mmol/L Normal 21.0-31.0 [facility] Comment on above: Performed By: #### M G, CMP, CBC ####[place] [id number] [facility] Creatinine [Mass/Vol] 0.72 mg/dL Normal 0.60-1.20 [facility] Comment on above: Performed By: #### M G, CMP, CBC ####[place] [id number] [place] Creatinine Clr [facility] 78.04 Normal [facility] Comment on above: Result Comment: PERF ORMED BY: [facility] [address] [place] [address] PATHOLOGIST RETURNING OFFICER LAUREL CAT M.D. Performed By: #### M G, CMP, CBC ####[place] [id number] [place] GFR/1.73 sq M.predicted MDRD (S/P/Bld) [Vol rate/Area] mL/min/{1.73_m2} Normal [facility] Comment on above: Performed By: #### M Perico CMP, CBC ####[place] [id number] [facility] Globulin (S) [Mass/Vol] 3.3 g/dL Normal T he [facility] Comment on above: Performed By: #### M Perico CMP, CBC ####[place] [id number] [facility] Glucose [Mass/Vol] 165 mg/dL High 70-100 [facility] Comment on above: Result Comment: [place] Glucose Reference Range is dependent on time and content of last meal. Glucose of more than 200 mg/dL in a nonstressed, ambulatory subject supports the diagnosis of Diabetes Mellitus. ADA recommended reference range Performed By: #### M [place], CBC ####[place] [id number] [facility] Potassium [Moles/Vol] 3.0 mmol/L Low 3.5-5.1 [facility] Comment on above: Performed By: #### [place] CMP, CBC ####[place] [id number] [facility] Protein [Mass/Vol] 7.9 g/dL Normal 6.4-8.9 [facility] Comment on above: Performed By: #### [place] CMP, CBC ####[place] [id number] [facility] Sodium [Moles/Vol] 139 mmol/L Normal 136-145 [facility] Comment on above: Performed By: #### [place] i[place]ver CMP, CBC ####[place] [id number] [facility] Urea nitrogen [Mass/Vol] 8 mg/dL Normal 7-25 [facility] Comment on above: Performed By: #### [place] CMP, CBC ####[place] [id number] [facility] Creatinine [Mass/volume] in Serum or PlasmaOrdered By: Sandra Desai on 10-16-2024 Creatinine [Mass/Vol] Creatinine [Mass/v olume] in Serum or Plasma 0.60-1.20 [facility] Erythrocyte distribution wid th Auto (RBC) [Ratio]Ordered By: Sandra Desai on 10-16-2024 Erythrocyte distribution width (RBC) [Ratio] Erythrocyte distribution width [Ratio] by Automated count 11.9-15.3 [facility] Globulin Calc (S) [Mass/Vol] Ordered By: Sandra Desai on 10-16-2024 Globulin (S) [Mass/Vol] Serum globulin measurement by calculation (mass/volume) [facility] Glucose [Mass/volume] in Ser um or PlasmaOrdered By: Sandra Desai on 10-16-2024 Glucose [Mass/Vol] Glucose [Mass/volume ] in Serum or Plasma High 70-100 [facility] Comment on above: ADA recommended refe rence rangeRandom Glucose Reference Range is dependent on time and content of last meal. Glucose of more than 200 mg/dL in a nonstressed, ambulatory subject supports the diagnosis of Diabetes Mellitus. Glucose [Mass/volume] in Uri ne by Test stripOrdered By: Sandra Desai on 10-16-2024 Glucose Test strip (U) [Mass/Vol] Glucose [Mass/volume] in Urine by Test strip Normal [facility] Hematocrit Auto (Bld) [Volum e fraction]Ordered By: Sandra Desai on 10-16-2024 Hematocrit (Bld) [Volume fraction] Hematocrit [Volume Fraction] of Blood by Automated count 34.0-46.4 [facility] Hemoglobin Test strip Ql (U) Ordered By: Sandra Desai on 10-16-2024 Hemoglobin Ql (U) Hemoglobin [Presence ] in Urine by Test strip Negative [facility] Hemoglobin [Mass/volume] in BloodOrdered By: Sandra Desai on 10-16-2024 Hemoglobin (Bld) [Mass/Vol] Hemoglobin [Mass/volume] in Blood 11.8-15.4 [facility] Ketones Test strip Ql (U)Ord ered By: Sandra Desai on 10-16-2024 Ketones Ql (U) Ketones [Presence] i n Urine by Test strip High Negative [facility] Leukocyte esterase [Presence ] in Urine by Test stripOrdered By: Sandra Desai on 10-16-2024 Leukocyte esterase Test strip Ql (U) Leukocyte esterase [Presence] in Urine by Test strip Negative [facility] Leukocytes [#/volume] correc mainor for nucleated erythrocytes in Blood by Automated counOrdered By: Sandra Desai on 10-16-2024 WBC corrected for nucl RBC Auto (Bld) [#/Vol] Leukocytes [#/volume] corrected for nucleated erythrocytes in Blood by Automated coun 3.8-11.6 [facility] MCH Auto (RBC) [Entitic mass ]Ordered By: Sandra Desai on 10-16-2024 MCH (RBC) [Entitic mass] MCH [Entitic ma ss] by Automated count 24.7-34.3 [facility] MCHC Auto (RBC) [Mass/Vol]Or dered By: Sandra Desai on 10-16-2024 MCHC (RBC) [Mass/Vol] MCHC [Mass/volume] by Automated count High 32.0-35.0 [facility] MCV Auto (RBC) [Entitic vol] Ordered By: Sandra Desai on 10-16-2024 MCV (RBC) [Entitic vol] MCV [Entitic vol ume] by Automated count Low 80-100 [facility] Magnesiumon 10-16-2024 Magnesium [Mass/Vol] 1.9 mg/dL Normal 1.9-2.7 [facility] Comment on above: Result Comment: PERF ORMED BY: [facility] [address] [place] [address] PATHOLOGIST RETURNING OFFICER LAUREL CAT M.D. Performed By: #### M G, CMP, CBC ####[facility] [id number] [place] [id number] [facility] Magnesium [Mass/volume] in S minh or PlasmaOrdered By: Galdino Ulloa on 10-16-2024 Magnesium [Mass/Vol] Magnesium [Mass/vol ume] in Serum or Plasma 1.9-2.7 [facility] Nitrite Test strip Ql (U)Ord ered By: Sandra Desai on 10-16-2024 Nitrite Ql (U) Nitrite [Presence] i n Urine by Test strip Negative [facility] No Panel InformationOrdered By: Sandra Desai on 10-16-2024 Estimated GFR (CKD-EPI) > 60.0 mL/Min [facility] Creatinine Clearance (Chem 78.04 [facility] Platelet mean volume Auto (B ld) [Entitic vol]Ordered By: Sandra Desai on 10-16-2024 Platelet mean volume (Bld) [Entitic vol] Platelet mean volume [Entitic volume] in Blood by Automated count 6.3-10.7 [facility] Platelets Auto (Bld) [#/Vol] Ordered By: Sandra Desai on 10-16-2024 Platelets (Bld) [#/Vol] Platelets [#/vol ume] in Blood by Automated count High 150-450 [facility] Potassium [Moles/volume] in Serum or PlasmaOrdered By: Sandra Desai on 10-16-2024 Potassium [Moles/Vol] Potassium [Moles/v olume] in Serum or Plasma Low 3.5-5.1 [facility] Protein Test strip (U) [Mass /Vol]Ordered By: Sandra Desai on 10-16-2024 Protein (U) [Mass/Vol] Protein [Mass/vol ume] in Urine by Test strip Negative [facility] Protein [Mass/volume] in Ser um or PlasmaOrdered By: Sandra Desai on 10-16-2024 Protein [Mass/Vol] Protein [Mass/volume ] in Serum or Plasma 6.4-8.9 [facility] RBC Auto (Bld) [#/Vol]Ordere d By: Sandra Desai on 10-16-2024 RBC (Bld) [#/Vol] Erythrocytes [#/volu me] in Blood by Automated count 3.60-5.00 [facility] Respiratory specimen influen za A virus, influenza B virus, respiratory syncytical virOrdered By: Sandra Desai on 10-16-2024 SARS-CoV-2 (COVID-19) RNA OG+probe Ql (Unsp spec) Respiratory specimen influenza A virus, influenza B virus, respiratory syncytical vir [facility] Serum or plasma albumin/glob ulin mass ratioOrdered By: Sandra Desai on 10-16-2024 Albumin/Globulin [Mass ratio] Serum or plasma albumin/globulin mass ratio [facility] Serum or plasma anion gap de terminationOrdered By: Sandra Desai on 10-16-2024 Anion gap [Moles/Vol] Serum or plasma an ion gap determination 6.0-15.0 [facility] Sodium [Moles/volume] in Ser um or PlasmaOrdered By: Sandra Desai on 10-16-2024 Sodium [Moles/Vol] Sodium [Moles/volume ] in Serum or Plasma 136-145 [facility] Specific gravity Test strip (U) [Rel density]Ordered By: Sandra Desai on 10-16-2024 Specific gravity (U) [Rel density] Specific gravity of Urine by Test strip 1.001-1.03 0 [facility] Urea nitrogen [Mass/volume] in Serum or PlasmaOrdered By: Sandra Desai on 10-16-2024 Urea nitrogen [Mass/Vol] Urea nitrogen [Mass/volume] in Serum or Plasma 7-25 [facility] Urinalysison 10-16-2024 Appearance (U) Clear Normal Clear [facility] Comment on above: Order Comment: Name Collection Type:: Clean-Voided Midstream Performed By: #### U A ####[address] Bilirubin,Urine Negative Normal Negative [facility] Comment on above: Order Comment: Name Collection Type:: Clean-Voided Midstream Performed By: #### U A ####[address] Color (U) Yellow Normal Yellow [facility] Comment on above: Order Comment: Name Collection Type:: Clean-Voided Midstream Performed By: #### U A ####[place] [id number] [facility] Glucose Ql (U) Normal Normal Normal [facility] Comment on above: Order Comment: Name Collection Type:: Clean-Voided Midstream Performed By: #### U A ####[place] [id number] [facility] Ketones Ql (U) 2+ High Negative [facility] Comment on above: Order Comment: Name Collection Type:: Clean-Voided Midstream Performed By: #### U A ####[place] [id number] [facility] Leukocyte esterase Test strip Ql (U) Negative Normal Negative [facility] Comment on above: Order Comment: Name Collection Type:: Clean-Voided Midstream Performed By: #### U A ####[address] [address] [facility] Nitrite,Urine Negative Normal Negative [facility] Comment on above: Order Comment: Name Collection Type:: Clean-Voided Midstream Performed By: #### U A ####[address] [address] [facility] Occult Blood,Urine Negative Normal Negative [facility] Comment on above: Order Comment: Name Collection Type:: Clean-Voided Midstream Result Comment: PERF ORMED BY: [facility] [address] [place] [id number] PATHOLOGIST RETURNING OFFICER LAUREL CAT M.D. Performed By: #### U A ####[place] [id number] [facility] pH (U) 6.5 [pH] Normal 5.0-9.0 [facility] Comment on above: Order Comment: Name Collection Type:: Clean-Voided Midstream Performed By: #### U A ####[place] [id number] [facility] Protein,Urine Negative Normal Negative [facility] Comment on above: Order Comment: Name Collection Type:: Clean-Voided Midstream Performed By: #### U A ####[place] [id number] [facility] Specificy [place],Urine 1.011 Normal 1.00 1-1.03 0 [facility] Comment on above: Order Comment: Name Collection Type:: Clean-Voided Midstream Performed By: #### U A ####[address] [address] [facility] Urobilinogen,Urine Normal Normal Normal [facility] Comment on above: Order Comment: Name Collection Type:: Clean-Voided Midstream Performed By: #### U A ####[place] [id number] [facility] Urobilinogen Test strip (U) [Mass/Vol]Ordered By: Sandra eDsai on 10-16-2024 Urobilinogen (U) [Mass/Vol] Urobilinogen [Mass/volume] in Urine by Test strip Normal [facility] WBC Auto (Bld) [#/Vol]Ordere d By: Sandra Desai on 10-16-2024 WBC (Bld) [#/Vol] Leukocytes [#/volume ] in Blood by Automated count 3.8-11.6 [facility] pH Test strip (U)Ordered By: Sandra Desai on 10-16-2024 pH (U) pH of Urine by Test strip 5.0-9.0 [facility] Alanine aminotransferase [En zymatic activity/volume] in Serum or PlasmaOrdered By: Brisa Pat on 03-19-2024 ALT [Catalytic activity/Vol] 15 U/L Normal 7-52 [facility] Comment on above: Order Comment: Reaso n for Exam Chronic fatigue Performed By: #### C BC, CMP ####[address]#### UDS SCRN wRFX ####[facility] , Albumin [Mass/volume] in Ser um or Plasma by Bromocresol green (BCG) dye binding methoOrdered By: Brisa Pat on 03-19-2024 Albumin BCG dye [Mass/Vol] 4.3 g/dL 3.5-5.7 [facility] Alkaline phosphatase [Enzyma tic activity/volume] in Serum or PlasmaOrdered By: Brisa Adilia on 03-19-2024 ALP [Catalytic activity/Vol] 54 U/L Normal 34-104 [facility] Comment on above: Order Comment: Reaso n for Exam Chronic fatigue Result Comment: PERF ORMED BY: [facility] [address] [place] [address] PATHOLOGIST RETURNING OFFICER AMANDA SALMERON M.D. Performed By: #### C BC, CMP ####[place] [id number] [address]#### UDS SCRN wRFX ####[facility] , Amphetamine cutoff [Mass/vol ume] in Urine for Confirmatory methodOrdered By: Brisa Pat on 03-19-2024 Amphetamine cutoff Confirm (U) [Mass/Vol] >3000 ng/mL [id number] [facility] Amphetamine+Methamphetamine [Presence] in UrineOrdered By: Brisa Pat on 03-19-2024 Amphetamine+Methamphetami ne Ql (U) Positive Abnormal Raxltz=[phone] 0 [facility] Comment on above: Amphetamine test inc ludes Amphetamine and Methamphetamine. Amphetamines [Presence] in U rineOrdered By: Brisa Adilia on 03-19-2024 Amphetamines Ql (U) Positive Abnormal . [facility] Amphetamines [Presence] in U rine by Screen methodOrdered By: Brisa Adilia on 03-19-2024 Amphetamines Screen Ql (U) See final results ng/mL Yhhfrt=[id number] 0 [facility] Comment on above: Amphetamine test inc ludes Amphetamine and Methamphetamine. Aspartate aminotransferase [ Enzymatic activity/volume] in Serum or PlasmaOrdered By: Brisa Pat on 03-19-2024 AST [Catalytic activity/Vol] 16 U/L Normal 13-39 [facility] Comment on above: Order Comment: Reaso n for Exam Chronic fatigue Performed By: #### C BC, CMP ####[facility] [id number]#### UDS SCRN wRFX ####[facility] , Automated basophil %Ordered By: Brisa Pat on 03-19-2024 Basophils/100 WBC (Bld) 0.6 % Normal . [facility] Comment on above: Order Comment: Reaso n for Exam Chronic fatigue Performed By: #### C BC, CMP ####[facility] [id number] [place] [address] [place]#### UDS SCRN wRFX ####[facility] , Automated basophil countOrde red By: rBisa Pat on 03-19-2024 Basophils (Bld) [#/Vol] 0.0 10*3/uL Normal 0.0-0.2 [facility] Comment on above: Order Comment: Reaso n for Exam Chronic fatigue Result Comment: PERF ORMED BY: [facility] [place] [address] PATHOLOGIST RETURNING OFFICER AMANDA SALMERON M.D. Performed By: #### C BC, CMP ####[place] [address] [place]#### UDS SCRN wRFX ####[facility] , Automated blood monocyte cou ntOrdered By: Brisa Pat on 03-19-2024 Monocytes (Bld) [#/Vol] 0.5 10*3/uL Normal 0.0-0.8 [facility] Comment on above: Order Comment: Reaso n for Exam Chronic fatigue Performed By: #### C BC, CMP ####[address]#### UDS SCRN wRFX ####[facility] , Automated eosinophil %Ordere d By: Brisa Pat on 03-19-2024 Eosinophils/100 WBC (Bld) 0.2 % Normal . [facility] Comment on above: Order Comment: Reaso n for Exam Chronic fatigue Performed By: #### C BC, CMP ####[place] [address] [place]#### UDS SCRN wRFX ####[facility] , Automated eosinophil countOr dered By: Brisa Pat on 03-19-2024 Eosinophils (Bld) [#/Vol] 0.0 10*3/uL Normal 0.0-0.45 [facility] Comment on above: Order Comment: Reaso n for Exam Chronic fatigue Performed By: #### C BC, CMP ####[place] [address] [place]#### UDS SCRN wRFX ####[facility] , Automated monocyte %Ordered By: Brisa Pat on 03-19-2024 Monocytes/100 WBC (Bld) 9.7 % Normal . [facility] Comment on above: Order Comment: Reaso n for Exam Chronic fatigue Performed By: #### C BC, CMP ####[facility] [place] [address] [place]#### UDS SCRN wRFX ####[facility] , Automated neutrophil %Ordere d By: Birsa Pat on 03-19-2024 Neutrophils/100 WBC (Bld) 48.8 % Normal . [facility] Comment on above: Order Comment: Reaso n for Exam Chronic fatigue Performed By: #### C BC, CMP ####[place] [address] [place]#### UDS SCRN wRFX ####[facility] , Barbiturates [Presence] in U rine by Screen methodOrdered By: Brisa Pat on 03-19-2024 Barbiturates Screen Ql (U) Negative Zmxoxa=104 [facility] Benzodiazepines [Presence] i n UrineOrdered By: Brisa Pat on 03-19-2024 Benzodiazepines Ql (U) Negative Wzrvrp=253 [facility] Bilirubin.total [Mass/volume ] in Serum or PlasmaOrdered By: Brisa Pat on 03-19-2024 Bilirubin [Mass/Vol] 0.4 mg/dL Normal 0.3-1.0 [facility] Comment on above: Order Comment: Reaso n for Exam Chronic fatigue Performed By: #### C BC, CMP ####[place] [address] [place]#### UDS SCRN wRFX ####[facility] , Calcium [Mass/volume] in Ser um or PlasmaOrdered By: Brisa Pat on 03-19-2024 Calcium [Mass/Vol] 9.4 mg/dL Normal 8.6-10.3 [facility] Comment on above: Order Comment: Reaso n for Exam Chronic fatigue Performed By: #### C BC, CMP ####[place] [address] [place] [address] [place]#### UDS SCRN wRFX ####[facility] , Cannabinoids [Mass/volume] i n Urine by Confirmatory methodOrdered By: Brisa Pat on 03-19-2024 Cannabinoids Confirm (U) [Mass/Vol] Positive Abnormal Cutoff=50 [facility] Cannabinoids [Presence] in U rine by Screen methodOrdered By: Brisa Pat on 03-19-2024 Cannabinoids Screen Ql (U) See final results ng/mL Cutoff=[address] [facility] Carbon dioxide, total [Moles /volume] in Serum or PlasmaOrdered By: Brisa Pat on 03-19-2024 CO2 [Moles/Vol] 28.4 mmol/L Normal 21.0-31.[address] [facility] Comment on above: Order Comment: Reaso n for Exam Chronic fatigue Performed By: #### C BC, CMP ####[place] [address]#### UDS SCRN wRFX ####[facility] , Carboxy tetrahydrocannabinol [Mass/volume] in UrineOrdered By: Brisa Pat on 03-19-2024 Carboxy tetrahydrocannabinol (U) [Mass/Vol] >750 ng/mL Cutoff=15 [facility] Chloride [Moles/volume] in S minh or PlasmaOrdered By: Brisa Pat on 03-19-2024 Chloride [Moles/Vol] 106 mmol/L Normal 98-107 [facility] Comment on above: Order Comment: Reaso n for Exam Chronic fatigue Performed By: #### C BC, CMP ####[place] [address] [place]#### UDS SCRN wRFX ####[facility] , Complete Blood Count Auto Di ffon 03-19-2024 Mean Corpuscular HGB Conc 34.2 g/dL Normal 32.0-35.0 [facility] Comment on above: Order Comment: Reaso n for Exam Chronic fatigue Performed By: #### C BC, CMP ####[facility] [place] [address] [place]#### UDS SCRN wRFX ####[facility] , NRBC% 0.2 /100{WBC} Normal 0-0.5 [facility] Comment on above: Order Comment: Reaso n for Exam Chronic fatigue Performed By: #### C BC, CMP ####[place] [address] [place] [address] [place]#### UDS SCRN wRFX ####[facility] , Comprehensive Metabolic Pane susan 03-19-2024 Albumin [Mass/Vol] 4.3 g/dL Normal 3.5-5.7 [facility] Comment on above: Order Comment: Reaso n for Exam Chronic fatigue Performed By: #### C BC, CMP ####[place] [address] [place]#### UDS SCRN wRFX ####[facility] , GFR/1.73 sq M.predicted MDRD (S/P/Bld) [Vol rate/Area] mL/min/{1.73_m2} Normal [facility] Comment on above: Order Comment: Reaso n for Exam Chronic fatigue Performed By: #### C BC, CMP ####[place] [address] [place]#### UDS SCRN wRFX ####[facility] , Creatinine [Mass/volume] in Serum or PlasmaOrdered By: Brisa Adilia on 03-19-2024 Creatinine [Mass/Vol] 0.73 mg/dL Normal 0.60-1.20 [facility] Comment on above: Order Comment: Reaso n for Exam Chronic fatigue Performed By: #### C BC, CMP ####[address] [place] [place] [address] [place]#### UDS SCRN wRFX ####[facility] , Erythrocyte distribution wid th [Ratio] by Automated countOrdered By: Brisa Pat on 03-19-2024 Erythrocyte distribution width (RBC) [Ratio] 14.6 % Normal 11.9-15.3 [facility] Comment on above: Order Comment: Reaso n for Exam Chronic fatigue Performed By: #### C BC, CMP ####[facility] [place] [id number] [place]#### UDS SCRN wRFX ####[facility] , Erythrocytes [#/volume] in B lood by Automated countOrdered By: Brisa Pat on 03-19-2024 RBC (Bld) [#/Vol] 4.58 10*6/uL Normal 3.60-5.00 [facility] Comment on above: Order Comment: Reaso n for Exam Chronic fatigue Performed By: #### C BC, CMP ####[place] [id number] [facility]#### UDS SCRN wRFX ####[facility] , Glucose [Mass/volume] in Ser um or PlasmaOrdered By: Brisa Pat on 03-19-2024 Glucose [Mass/Vol] 121 mg/dL High 70-100 [facility] Comment on above: ADA recommended refe rence rangeRandom Glucose Reference Range is dependent on time and content of last meal. Glucose of more than 200 mg/dL in a nonstressed, ambulatory subject supports the diagnosis of Diabetes Mellitus. Order Comment: Reaso n for Exam Chronic fatigue Result Comment: Vanlue om Glucose Reference Range is dependent on time and content of last meal. Glucose of more than 200 mg/dL in a nonstressed, ambulatory subject supports the diagnosis of Diabetes Mellitus. ADA recommended reference range Performed By: #### C BC, CMP ####[place] [address] [place] [id number] [place]#### UDS SCRN wRFX ####[facility] , Hematocrit [Volume Fraction] of Blood by Automated countOrdered By: Brisa Pat on 03-19-2024 Hematocrit (Bld) [Volume fraction] 38.0 % Normal 34.0-46.4 [facility] Comment on above: Order Comment: Reaso n for Exam Chronic fatigue Performed By: #### C BC, CMP ####[place] [id number] [place]#### UDS SCRN wRFX ####[facility] , Hemoglobin [Mass/volume] in BloodOrdered By: Brisa Pat on 03-19-2024 Hemoglobin (Bld) [Mass/Vol] 13.0 g/dL Normal 11.8-15.4 [facility] Comment on above: Order Comment: Reaso n for Exam Chronic fatigue Performed By: #### C BC, CMP ####[address]#### UDS SCRN wRFX ####[facility] , Leukocytes [#/volume] correc mainor for nucleated erythrocytes in Blood by Automated counOrdered By: Brisa Pat on 03-19-2024 WBC corrected for nucl RBC Auto (Bld) [#/Vol] 5.1 10*3/uL 3.8-11.6 [facility] Leukocytes [#/volume] in Blo od by Automated countOrdered By: Brisa Pat on 03-19-2024 WBC (Bld) [#/Vol] 5.1 10*3/uL Normal 3.8-11.6 [facility] Comment on above: Order Comment: Reaso n for Exam Chronic fatigue Performed By: #### C BC, CMP ####[place] [address] [place]#### UDS SCRN wRFX ####[facility] , Lymphocytes [#/volume] in Bl ood by Automated countOrdered By: Brisa Pat on 03-19-2024 Lymphocytes (Bld) [#/Vol] 2.1 10*3/uL Normal 1.00-4.8 [facility] Comment on above: Order Comment: Reaso n for Exam Chronic fatigue Performed By: #### C BC, CMP ####[address] [place] [address] [place]#### UDS SCRN wRFX ####[facility] , Lymphocytes/100 leukocytes i n Blood by Automated countOrdered By: Brisa Pat on 03-19-2024 Lymphocytes/100 WBC (Bld) 40.7 % Normal . [facility] Comment on above: Order Comment: Reaso n for Exam Chronic fatigue Performed By: #### C BC, CMP ####[place] [address] [place]#### UDS SCRN wRFX ####[facility] , MCH [Entitic mass] by Automa mainor countOrdered By: Brisa Pat on 03-19-2024 MCH (RBC) [Entitic mass] 28.3 pg Normal 24.7-34.3 [facility] Comment on above: Order Comment: Reaso n for Exam Chronic fatigue Performed By: #### C BC, CMP ####[address]#### UDS SCRN wRFX ####[facility] , MCHC Auto (RBC) [Mass/Vol]Or dered By: Brisa Pat on 03-19-2024 MCHC (RBC) [Mass/Vol] 34.2 g/dL 32.0-35.0 [facility] MCV [Entitic volume] by Auto mated countOrdered By: Brisa Pat on 03-19-2024 MCV (RBC) [Entitic vol] 82.9 fL Normal 80-100 [facility] Comment on above: Order Comment: Reaso n for Exam Chronic fatigue Performed By: #### C BC, CMP ####[address]#### UDS SCRN wRFX ####[facility] , Methamphetamine [Presence] i n UrineOrdered By: Brisa Pat on 03-19-2024 Methamphetamine Ql (U) Negative Rwehse=807 [facility] Neutrophils [#/volume] in Bl ood by Automated countOrdered By: Brisa Pat on 03-19-2024 Neutrophils (Bld) [#/Vol] 2.5 10*3/uL Normal 1.8-7.7 [facility] Comment on above: Order Comment: Reaso n for Exam Chronic fatigue Performed By: #### C BC, CMP ####[place] [address] [place]#### UDS SCRN wRFX ####[facility] , No Panel InformationOrdered By: Brisa Pat on 03-19-2024 Estimated GFR (CKD-EPI) > 60.0 mL/Min [facility] Creatinine Clearance (Chem N/A [facility] Nucleated erythrocytes [Pres ence] in Blood by Automated countOrdered By: Brisa Pat on 03-19-2024 Nucleated RBC Auto Ql (Bld) 0.2 /100{WBC} 0-0.5 [facility] Opiates [Presence] in UrineO rdered By: Brisa Pat on 03-19-2024 Opiates Ql (U) Negative Narwxi=326 [facility] Comment on above: Opiate test includes Codeine and Morphine only. Phencyclidine [Presence] in UrineOrdered By: Brisa Pat on 03-19-2024 Phencyclidine Ql (U) Negative Cutoff=25 [facility] Comment on above: Performed at: [facility] [id number] [place], [place] [id number] Director: Alysia Otero PhD, Phone: [phone] Platelet mean volume [Entiti c volume] in Blood by Automated countOrdered By: Brisa Pat on 03-19-2024 Platelet mean volume (Bld) [Entitic vol] 7.1 fL Normal 6.3-10.7 [facility] Comment on above: Order Comment: Reaso n for Exam Chronic fatigue Performed By: #### C BC, CMP ####[facility]#### UDS SCRN wRFX ####[facility] , Platelets [#/volume] in Bloo d by Automated countOrdered By: Brisa Pat on 03-19-2024 Platelets (Bld) [#/Vol] 420 10*3/uL Normal 150-450 [facility] Comment on above: Order Comment: Reaso n for Exam Chronic fatigue Performed By: #### C BC, CMP ####[facility] [place] [id number] [facility]#### UDS SCRN wRFX ####[facility] , Potassium [Moles/volume] in Serum or PlasmaOrdered By: Brisa Pat on 03-19-2024 Potassium [Moles/Vol] 4.4 mmol/L Normal 3.5-5.1 [facility] Comment on above: Order Comment: Reaso n for Exam Chronic fatigue Performed By: #### C BC, CMP ####[address] [place] [place] [address] [place]#### UDS SCRN wRFX ####[facility] , Protein [Mass/volume] in Ser um or PlasmaOrdered By: Brisa Pat on 03-19-2024 Protein [Mass/Vol] 7.0 g/dL Normal 6.4-8.9 [facility] Comment on above: Order Comment: Reaso n for Exam Chronic fatigue Performed By: #### C BC, CMP ####[address]#### UDS SCRN wRFX ####[facility] , Serum globulin measurement b y calculation (mass/volume)Ordered By: Brisa Pat on 03-19-2024 Globulin (S) [Mass/Vol] 2.7 g/dL Normal [facility] Comment on above: Order Comment: Reaso n for Exam Chronic fatigue Performed By: #### C BC, CMP ####[address] [place] [address] [place]#### UDS SCRN wRFX ####[facility] , Serum or plasma albumin/glob ulin mass ratioOrdered By: Brisa Pat on 03-19-2024 Albumin/Globulin [Mass ratio] 1.6 {ratio} Normal [facility] Comment on above: Order Comment: Reaso n for Exam Chronic fatigue Performed By: #### C BC, CMP ####[place] [address] [place] [id number] [place]#### UDS SCRN wRFX ####[facility] , Serum or plasma anion gap de terminationOrdered By: Brisa Pat on 03-19-2024 Anion gap [Moles/Vol] 9.0 mmol/L Normal 6.0-15.0 [facility] Comment on above: Order Comment: Reaso n for Exam Chronic fatigue Performed By: #### C BC, CMP ####[facility]#### UDS SCRN wRFX ####[facility] , Sodium [Moles/volume] in Ser um or PlasmaOrdered By: Brisa Pat on 03-19-2024 Sodium [Moles/Vol] 139 mmol/L Normal 136-145 [facility] Comment on above: Order Comment: Reaso n for Exam Chronic fatigue Performed By: #### C BC, CMP ####[place] [address]#### UDS SCRN wRFX ####[facility] , Urea nitrogen [Mass/volume] in Serum or PlasmaOrdered By: Brisa Pat on 03-19-2024 Urea nitrogen [Mass/Vol] 11 mg/dL Normal 7-25 [facility] Comment on above: Order Comment: Reaso n for Exam Chronic fatigue Performed By: #### C BC, CMP ####[facility]#### UDS SCRN wRFX ####[facility] , Urine Drug Screen w/Confirmo n 03-19-2024 Amphetamines GC/MS Confirm, Ur >3000 Normal Zqnlxt=276 [facility] Comment on above: Order Comment: Reaso n for Exam Medication management Performed By: #### C BC, CMP ####[facility] [place] [address] [place]#### UDS SCRN wRFX ####[facility] , Amphetamines, Ur See Final Results Normal Cutoff =100 0 [facility] Comment on above: Order Comment: Reaso n for Exam Medication management Result Comment: Amph etamine test includes Amphetamine and Methamphetamine. Performed By: #### C BC, CMP ####[facility] [place] [id number] [place]#### UDS SCRN wRFX ####[facility] , Amphetamines, Ur Positive Critically abnormal . [facility] Comment on above: Order Comment: Reaso n for Exam Medication management Result Comment: Amph etamine test includes Amphetamine and Methamphetamine. Performed By: #### C BC, CMP ####[place] [id number] [place]#### UDS SCRN wRFX ####[facility] , Barbiturate, Ur Negative Normal Zmtqzj=478 [facility] Comment on above: Order Comment: Reaso n for Exam Medication management Performed By: #### C BC, CMP ####[place] [id number] [facility]#### UDS SCRN wRFX ####[facility] , Benzodiazepines, Ur Negative Normal Wlayqk=279 [facility] Comment on above: Order Comment: Reaso n for Exam Medication management Performed By: #### C BC, CMP ####[place] [id number] [place]#### UDS SCRN wRFX ####[facility] , Cannabinoid, Ur See Final Results Normal Cutoff=50 [facility] Comment on above: Order Comment: Reaso n for Exam Medication management Performed By: #### C BC, CMP ####[place] [id number] [place]#### UDS SCRN wRFX ####[facility] , Cannabinoid, Urine Positive Critically abnormal Cutoff=50 [facility] Comment on above: Order Comment: Reaso n for Exam Medication management Performed By: #### C BC, CMP ####[place] [id number] [place]#### UDS SCRN wRFX ####[facility] , Carboxy THC GC/MS Confirm >750 Normal Cutoff=15 [facility] Comment on above: Order Comment: Reaso n for Exam Medication management Result Comment: PERF ORMED BY: [facility] [place] [address] PATHOLOGIST RETURNING OFFICER AMANDA SALMERON M.D. Performed By: #### C BC, CMP ####[address]#### UDS SCRN wRFX ####[facility] , Cocaine (Metab), Ur Negative Normal Udpfbq=128 [facility] Comment on above: Order Comment: Reaso n for Exam Medication management Performed By: #### C BC, CMP ####[address]#### UDS SCRN wRFX ####[facility] , Methamphetamine Negative Normal Sjlayc=296 [facility] Comment on above: Order Comment: Reaso n for Exam Medication management Performed By: #### C BC, CMP ####[address]#### UDS SCRN wRFX ####[facility] , Opaites, Ur Negative Normal Dakzdm=905 [facility] Comment on above: Order Comment: Reaso n for Exam Medication management Result Comment: Opia te test includes Codeine and Morphine only. Performed By: #### C BC, CMP ####[address]#### UDS SCRN wRFX ####[facility] , Phencyclidine, Ur Negative Normal Cutoff=25 [facility] Comment on above: Order Comment: Reaso n for Exam Medication management Result Comment: Perf ormed at: - [facility] [address] [facility], [facility], [place] [id number] Web Services Professional: Alysia Otero PhD, Phone: [phone] Performed By: #### C BC, CMP ####[address]#### UDS SCRN wRFX ####[facility] , Urine cocaine metabolite det ectionOrdered By: Brisa Adilia on 03-19-2024 Benzoylecgonine Ql (U) Negative Bqmnyx=003 Fi [facility] Urine Cultureon 03-03-2024 Bacteria identified Cx Nom (U) No Growth 2 Days PERFORMED BY: [facility] [address] [place] [address] PATHOLOGIST RETURNING OFFICER AMANDA SALMERON M.D. Normal [facility] Comment on above: Performed By: #### C UU ####[facility] [address] [place] [address] [facility] Urine culture routineOrdered By: Guilherme Dotson on 03-03-2024 Bacteria identified Cx Nom (U) No Growth 2 Days [facility] Chlamydia trachomatis DNA [P resence] in Specimen by OG with probe detectionOrdered By: Guilherme Dotson on 02-28-2024 C. trachomatis DNA OG+probe Ql (Unsp spec) Negative Negative [facility] Chlamydia/GC/Trich NAAon Chlamydia Trachomotis, OG Negative Normal Negative [facility] Comment on above: Order Comment: Reaso n for Exam Screen for sexually transmitted diseases Performed By: #### G CCHLAMTRI, HIV SCREEN, RPR W RFX ####[facility] , Neisseria Gonorrhoeae, OG Negative Normal Negative [facility] Comment on above: Order Comment: Reaso n for Exam Screen for sexually transmitted diseases Performed By: #### G CCHLAMTRI, HIV SCREEN, RPR W RFX ####[facility] , Trichomonas OG Negative Normal Negative [facility] Comment on above: Order Comment: Reaso n for Exam Screen for sexually transmitted diseases Result Comment: Perf ormed at: =G - [facility] [address] [id number] Web Services Professional: Dolores Gonzalez MD, Phone: [phone] PERFORMED BY: [facility] [address] [place] [address] PATHOLOGIST RETURNING OFFICER AMANDA SALMERON M.D. Performed By: #### G CCHLAMTRI, HIV SCREEN, RPR W RFX ####[facility] , HIV 1/O/2 Antigen/Antibodyon 02-28-2024 HIV Screen 4th Generation Non-Reactive Normal No n Reactive [facility] Comment on above: Order Comment: Reaso n for Exam Screen for sexually transmitted diseases Result Comment: HIV- 1/HIV-2 antibodies and HIV-1 p24 antigen were NOT detected. There is no laboratory evidence of HIV infection. HIV Negative Performed at: [address] [id number] Web Services Professional: Rudy Mills PhD, Phone: [phone] Performed By: #### G CCHLAMTRI, HIV SCREEN, RPR W RFX ####[facility] , HIV 1 and HIV-2 antibody ass ay with HIV-1 p24 antigen detectionOrdered By: Guilherme Dotson on 02-28-2024 HIV 1+2 Ab+HIV1 p24 Ag IA Ql Non-Reactive Non Reactive [facility] Comment on above: HIV-1/HIV-2 antibodi es and HIV-1 p24 antigen were NOTdetected. There is no laboratory evidence of HIV infection.HIV NegativePerformed at: [address] [id number] Director: Rudy Mills PhD, Phone: [phone] Neisseria gonorrhoeae DNA [P resence] in Specimen by OG with probe detectionOrdered By: Guilherme Dotson on 02-28-2024 N. gonorrhoeae DNA OG+probe Ql (Unsp spec) Negative Negative [facility] RPR w/rfx to Quant TP Abson 02-28-2024 RPR, Rfx Quant RPR Non-Reactive Normal Non Reactive [facility] Comment on above: Order Comment: Reaso n for Exam Screen for sexually transmitted diseases Result Comment: Perf ormed at: [address] [id number] Web Services Professional: Rudy Mills PhD, Phone: [phone] PERFORMED BY: [place] [address] [place] [id number] PATHOLOGIST RETURNING OFFICER AMANDA SALMERON M.D. Performed By: #### G CCHLAMTRI, HIV SCREEN, RPR W RFX ####[facility] , Reagin Ab [Presence] in Seru m by RPROrdered By: Guilherme Dotson on 02-28-2024 Reagin Ab RPR Ql (S) Non-Reactive Non Reactive [facility] Comment on above: Performed at: - L [facility] [address] [id number] Director: Rudy Mills PhD, Phone: [phone] Trichomonas vaginalis DNA [P resence] in Specimen by OG with probe detectionOrdered By: Guilherme Dotson on 02-28-2024 T. vaginalis DNA OG+probe Ql (Unsp spec) Negative Negative [facility] Comment on above: Performed at: =G - [facility] [employer] [address] [id number] Director: Dolores Gonzalez MD, Phone: [phone] XR pre/post mri xrayon 02-15 XR pre/post mri xray [facility] [place] [address] [place] [address] MRI Report Signed Patient: Laure Miramontes MR#: [id number] : 1980 Acct:[id number] Age/Sex: 43 / F ADM Date: 02/16/24 Loc: Room: Type: [facility] Attending Dr: Guilherme Dotson DO Copies to: Guilherme Dotson DO Ordering Provider: Guilherme Dotson DO Date of Service: 02/16/24 MR/MR shoulder LT wo con: Pain, joint, shoulder, left ([id number]) XR/XR pre/post mri xray: M25.512 EXAMINATION: MRI OF THE LEFT SHOULDER CLINICAL HISTORY: Left head of humerus pain that radiates to left side of chest with limited range of motion for 4 months. COMPARISON: X-ray performed today. TECHNIQUE: Multiecho, multiplanar imaging was performed with use of an extremity coil. No contrast was administered. FINDINGS: Bones/Joints: Minimal joint fluid. Mild degenerative changes of the AC joint. No bone marrow edema or fracture is seen. Inferior glenohumeral ligament appears unremarkable. Labrum: Suboptimally visualized. No definitive tear is seen. Biceps tendon: Normal Supraspinatus: Tendinosis without definitive tear. Infraspinatus: Normal Teres Minor: Normal Subscapularis: Normal MR/MR shoulder LT wo con IMPRESSION: MILD DEGENERATIVE CHANGES OF THE AC JOINT. THERE IS MINIMAL JOINT EFFUSION. TENDINOSIS INVOLVING THE SUPRASPINATUS. NO DEFINITIVE ROTATOR CUFF TEAR IS SEEN. LEFT SHOULDER 2 VIEWS. REASON FOR EXAM:Left head of humerus pain that radiates to left side of chest with limited range of motion for 4 months. FINDINGS: Mild degenerative changes of the left AC joint without acute bony process. Subacromial space appears maintained. IMPRESSION: Mild degenerative changes of the AC joint without acute bony process. Impression dictated by: Ajith Tinajero Jr., DAntoinetteOAntoinette02/16/2024 9:59 AM Dictation Location: [place] [address] Transcribed By: [facility] 02/16/24 0959 Dictated By: Ajith Tinajero Jr, DO 02/16/24 0954 Signed By: 02/16/24 0959 Normal [facility] HSV 1,2 IgG Specific Ab Bloo don 02-08-2024 Herpes Simplex Virus I, IgG <0.91 Normal 0.00-0.90 [facility] Comment on above: Order Comment: Reaso n for Exam Screen for sexually transmitted diseases Result Comment: Nega tive <0.91 Equivocal 0.91 - 1.09 Positive >1.09 Note: Negative indicates no antibodies detected to HSV-1. Equivocal may suggest early infection. If clinically appropriate, retest at later date. Positive indicates antibodies detected to HSV-1. Performed By: #### H SV 1,2IgG ####[facility] , Herpes Simplex Virus II, IgG >23.60 High 0.00-0.90 [facility] Comment on above: Order Comment: Reaso n for Exam Screen for sexually transmitted diseases Result Comment: Nega tive <0.91 Equivocal 0.91 - 1.09 Positive >1.09 HSV-2 Antibody Interpretation: Current guidelines and recommendations do not recommend routine screening for HSV-2 in asymptomatic individuals, including those that are . A negative antibody result indicates no detectable antibodies to HSV-2 were found. If recent exposure is suspected, retest in 4 to 6 weeks. Equivocal samples should be retested in 4 to 6 weeks. A positive result indicates the presence of detectable IgG antibody to HSV-2. FALSE POSITIVE RESULTS MAY OCCUR. Repeat testing, or testing by a different method, may be indicated in some settings (e.g. patients with low likelihood of HSV infection). If clinically appropriate, retest 4 to 6 weeks later. HSV-2 IgG antibody testing results should be clinically correlated. Performed at: [facility] [employer] [id number] Web Services Professional: Rudy Mills PhD, Phone: [phone] PERFORMED BY: [place] [address] [place] [address] PATHOLOGIST RETURNING OFFICER AMANDA SALMERON M.D. Performed By: #### H SV 1,2IgG ####[facility] , Serum herpes simplex virus ( HSV) type 2 IgG antibody detection by immunoassayOrdered By: Guilherme Dotson on 02-08-2024 HSV 2 IgG IA Qn (S) >23.60 index High 0.00-0.90 [facility] Comment on above: Negative <0.91 Equiv ocal 0.91 - 1.09 Positive >1.09 HSV-2 Antibody Interpretation: Current guidelines and recommendations do not recommend routine screening for HSV-2 in asymptomatic individuals, including those that are . A negative antibody result indicates no detectable antibodies to HSV-2 were found. If recent exposure is suspected, retest in 4 to 6 weeks. Equivocal samples should be retested in 4 to 6 weeks. A positive result indicates the presence of detectable IgG antibody to HSV-2. FALSE POSITIVE RESULTS MAY OCCUR. Repeat testing, or testing by a different method, may be indicated in some settings (e.g. patients with low likelihood of HSV infection). If clinically appropriate, retest 4 to 6 weeks later. HSV-2 IgG antibody testing results should be clinically correlated.Performed at: [employer] [id number] Director: Rudy Mills PhD, Phone: [phone] Serum herpes simplex virus 1 and 2 IgG antibody assay by immunoassay (units/volume)Ordered By: Guilherme Dotson on 02-08-2024 HSV 1+2 IgG IA Qn (S) <0.91 index 0.00-0.90 [facility] Comment on above: Negative <0.91 Equiv ocal 0.91 - 1.09 Positive >1.09 Note: Negative indicates no antibodies detected to HSV-1. Equivocal may suggest early infection. If clinically appropriate, retest at later date. Positive indicates antibodies detected to HSV-1. A1C with Estimated Average G luon 01-19-2024 Glucose [Mass/Vol] 126 mg/dL Normal [facility] Comment on above: Order Comment: Reaso n for Exam Chronic fatigue Result Comment: PERF ORMED BY: [place] [address] PATHOLOGIST RETURNING OFFICER AMANDA SALMERON M.D. Performed By: #### P TT MIX, ANCA PROF, LYME AB wRFX, GAUTAM CHOICE #### [facility] , #### A1C WTH eA, PT, CMP, ESR, CRP, CBC #### [facility] [address] [place] [address] [place] GAUTAM with Reflexon 01-19-2024 GAUTAM with Reflex Negative Normal Negative [facility] Comment on above: Order Comment: Reaso n for Exam Polyarthralgia;Chronic fatigue Reason for Exam Chronic fatigue Result Comment: Perf ormed at: [facility] [id number] Web Services Professional: Rudy Mills PhD, Phone: [phone] Performed By: #### P TT MIX, ANCA PROF, LYME AB wRFX, GAUTAM CHOICE ####[facility] ,#### A1C WTH eA, PT, CMP, ESR, CRP, CBC ####[facility] [id number] ANCA Profile (ANCA+MPO+PR3)o n 01-19-2024 Antimyeloperoxidase (MPO) Abs <0.2 Normal 0.0-0.9 [facility] Comment on above: Order Comment: Reaso n for Exam Polyarthralgia;Chronic fatigue Reason for Exam Chronic fatigue Performed By: #### P TT MIX, ANCA PROF, LYME AB wRFX, GAUTAM CHOICE ####[facility] ,#### A1C WTH eA, PT, CMP, ESR, CRP, CBC ####[place] [id number] [address] Atypical pANCA <1:20 Normal Neg:<1:20 [facility] Comment on above: Order Comment: Reaso n for Exam Polyarthralgia;Chronic fatigue Reason for Exam Chronic fatigue Result Comment: The atypical pANCA pattern has been observed in a significant percentage of patients with ulcerative colitis, primary sclerosing cholangitis and autoimmune hepatitis. Performed at: - [facility] [id number] Web Services Professional: Jair Nunn MD, Phone: [phone] Performed at: [facility] [id number] Web Services Professional: Rudy Mills PhD, Phone: [phone] Performed By: #### P TT MIX, ANCA PROF, LYME AB wRFX, GAUTAM CHOICE ####[facility] ,#### A1C WTH eA, PT, CMP, ESR, CRP, CBC ####[place] [address] [place] Cytoplasmic (C-ANCA) <1:20 Normal Neg:<1:20 [facility] Comment on above: Order Comment: Reaso n for Exam Polyarthralgia;Chronic fatigue Reason for Exam Chronic fatigue Performed By: #### P TT MIX, ANCA PROF, LYME AB wRFX, GAUTAM CHOICE ####[facility] ,#### A1C WTH eA, PT, CMP, ESR, CRP, CBC ####[place] [id number] [place] Perinuclear (P-ANCA) <1:20 Normal Neg:<1:20 [facility] Comment on above: Order Comment: Reaso n for Exam Polyarthralgia;Chronic fatigue Reason for Exam Chronic fatigue Result Comment: The presence of positive fluorescence exhibiting P-ANCA or C-ANCA patterns alone is not specific for the diagnosis of Cristina's Granulomatosis (WG) or microscopic polyangiitis. Decisions about treatment should not be based solely on ANCA IFA results. The International ANCA Group Consensus recommends follow up testing of positive sera with both PA- 3 and MPO-ANCA enzyme immunoassays. As many as 5% serum samples are positive only by EIA. Ref. AM J Clin Pathol 1999;111:507-513. Performed By: #### P TT MIX, ANCA PROF, LYME AB wRFX, GAUTAM CHOICE ####[facility] ,#### A1C WTH eA, PT, CMP, ESR, CRP, CBC ####[place] [id number] [address] Proteinase 3 (PR3) Antibodies <0.2 Normal 0.0-0.9 [facility] Comment on above: Order Comment: Reaso n for Exam Polyarthralgia;Chronic fatigue Reason for Exam Chronic fatigue Result Comment: PERF ORMED BY: [facility] [address] [place] [address] PATHOLOGIST RETURNING OFFICER AMANDA SALMERON M.D. Performed By: #### P TT MIX, ANCA PROF, LYME AB wRFX, GAUTAM CHOICE ####[facility] ,#### A1C WTH eA, PT, CMP, ESR, CRP, CBC ####[facility] [place] [id number] [facility] Activated partial thrombopla stin time (aPTT) in platelet poor plasma by coagulation aOrdered By: Guilherme Dotson on 01-19-2024 aPTT Coag (PPP) [Time] 25.8 s 22.9-30.2 [facility] Comment on above: The aPTT is normal s o plasma mixing tests are notindicated. Activated partial thrombopla stin time 60 minutes post mixingOrdered By: Guilherme Dotson on 01-19-2024 aPTT 1 Hr post incubation Coag (PPP Pooled) [Time] See comment . [facility] Comment on above: Test not performed Alanine aminotransferase [En zymatic activity/volume] in Serum or PlasmaOrdered By: Guilherme Dotson on 01-19-2024 ALT [Catalytic activity/Vol] 17 U/L Normal 7-52 [facility] Comment on above: Order Comment: Reaso n for Exam Chronic fatigue Reason for Exam Polyarthralgia;Chronic fatigue Performed By: #### P TT MIX, ANCA PROF, LYME AB wRFX, GAUTAM CHOICE #### [facility] , #### A1C WTH eA, PT, CMP, ESR, CRP, CBC #### [facility] [address] [place] [address] [place] Albumin [Mass/volume] in Ser um or Plasma by Bromocresol green (BCG) dye binding methoOrdered By: Guilherme Dotson on 01-19-2024 Albumin BCG dye [Mass/Vol] 4.2 g/dL 3.5-5.7 [facility] Alkaline phosphatase [Enzyma tic activity/volume] in Serum or PlasmaOrdered By: Guilherme Dotson on 01-19-2024 ALP [Catalytic activity/Vol] 71 U/L Normal 34-104 [facility] Comment on above: Order Comment: Reaso n for Exam Chronic fatigue Reason for Exam Polyarthralgia;Chronic fatigue Performed By: #### P TT MIX, ANCA PROF, LYME AB wRFX, GAUTAM CHOICE #### [facility] , #### A1C WTH eA, PT, CMP, ESR, CRP, CBC #### [facility] [address] [place] [address] [place] Aspartate aminotransferase [ Enzymatic activity/volume] in Serum or PlasmaOrdered By: Guilherme Dotson on 01-19-2024 AST [Catalytic activity/Vol] 17 U/L Normal 13-39 [facility] Comment on above: Order Comment: Reaso n for Exam Chronic fatigue Reason for Exam Polyarthralgia;Chronic fatigue Performed By: #### P TT MIX, ANCA PROF, LYME AB wRFX, GAUTAM CHOICE #### [facility] , #### A1C WTH eA, PT, CMP, ESR, CRP, CBC #### [facility] [address] [place] [address] [place] Automated basophil %Ordered By: Guilherme Dotson on 01-19-2024 Basophils/100 WBC (Bld) 0.9 % Normal . [facility] Comment on above: Order Comment: Reaso n for Exam Chronic fatigue Reason for Exam Polyarthralgia;Chronic fatigue Performed By: #### P TT MIX, ANCA PROF, LYME AB wRFX, GAUTAM CHOICE #### [facility] , #### A1C WTH eA, PT, CMP, ESR, CRP, CBC #### [facility] [address] Automated basophil countOrde red By: Guilherme Dotson on 01-19-2024 Basophils (Bld) [#/Vol] 0.1 10*3/uL Normal 0.0-0.2 [facility] Comment on above: Order Comment: Reaso n for Exam Chronic fatigue Reason for Exam Polyarthralgia;Chronic fatigue Performed By: #### P TT MIX, ANCA PROF, LYME AB wRFX, GAUTAM CHOICE #### [facility] , #### A1C WTH eA, PT, CMP, ESR, CRP, CBC #### [address] Automated blood monocyte cou ntOrdered By: Guilherme Dotson on 01-19-2024 Monocytes (Bld) [#/Vol] 0.6 10*3/uL Normal 0.0-0.8 [facility] Comment on above: Order Comment: Reaso n for Exam Chronic fatigue Reason for Exam Polyarthralgia;Chronic fatigue Performed By: #### P TT MIX, ANCA PROF, LYME AB wRFX, GAUTAM CHOICE #### [facility] , #### A1C WTH eA, PT, CMP, ESR, CRP, CBC #### [address] Automated eosinophil %Ordere d By: Guilherme Dotson on 01-19-2024 Eosinophils/100 WBC (Bld) 1.4 % Normal . [facility] Comment on above: Order Comment: Reaso n for Exam Chronic fatigue Reason for Exam Polyarthralgia;Chronic fatigue Performed By: #### P TT MIX, ANCA PROF, LYME AB wRFX, GAUTAM CHOICE #### [facility] , #### A1C WTH eA, PT, CMP, ESR, CRP, CBC #### [facility] [address] Automated eosinophil countOr dered By: Guilherme Dotson on 01-19-2024 Eosinophils (Bld) [#/Vol] 0.1 10*3/uL Normal 0.0-0.45 [facility] Comment on above: Order Comment: Reaso n for Exam Chronic fatigue Reason for Exam Polyarthralgia;Chronic fatigue Performed By: #### P TT MIX, ANCA PROF, LYME AB wRFX, GAUTAM CHOICE #### [facility] , #### A1C WTH eA, PT, CMP, ESR, CRP, CBC #### [facility] [address] [place] [address] Automated monocyte %Ordered By: Guilherme Dotson on 01-19-2024 Monocytes/100 WBC (Bld) 6.2 % Normal . [facility] Comment on above: Order Comment: Reaso n for Exam Chronic fatigue Reason for Exam Polyarthralgia;Chronic fatigue Performed By: #### P TT MIX, ANCA PROF, LYME AB wRFX, GAUTAM CHOICE #### [facility] , #### A1C WTH eA, PT, CMP, ESR, CRP, CBC #### [address] Automated neutrophil %Ordere d By: Guilherme Dotson on 01-19-2024 Neutrophils/100 WBC (Bld) 67.6 % Normal . [facility] Comment on above: Order Comment: Reaso n for Exam Chronic fatigue Reason for Exam Polyarthralgia;Chronic fatigue Performed By: #### P TT MIX, ANCA PROF, LYME AB wRFX, GAUTAM CHOICE #### [facility] , #### A1C WTH eA, PT, CMP, ESR, CRP, CBC #### [facility] [address] [place] [address] Bilirubin.total [Mass/volume ] in Serum or PlasmaOrdered By: Guilherme Dotson on 01-19-2024 Bilirubin [Mass/Vol] 0.3 mg/dL Normal 0.3-1.0 [facility] [place] [facility] Comment on above: Order Comment: Reaso n for Exam Chronic fatigue Reason for Exam Polyarthralgia;Chronic fatigue Performed By: #### P TT MIX, ANCA PROF, LYME AB wRFX, GAUTAM CHOICE #### [facility] , #### A1C WTH eA, PT, CMP, ESR, CRP, CBC #### [facility] [address] [place] [address] Borrelia burgdorferi IgG+IgM Ab [Presence] in Serum by ImmunoassayOrdered By: Guilherme Dotson on 01-19-2024 B. burgdorferi IgG+IgM IA Ql (S) Negative Negative [facility] Comment on above: Lyme antibodies not detected. Reflex testing is notindicated.No laboratory evidence of infection with B. burgdorferi(Lyme disease). Negative results may occur in patientsrecently infected (less than or equal to 14 days) with B.burgdorferi. If recent infection is suspected, repeattesting on a new sample collected in 7 to 14 days isrecommended.Performed at: - [place] [id number] Director: Rudy Mills PhD, Phone: [phone] C reactive protein [Mass/vol ume] in Serum or PlasmaOrdered By: Guilherme Dotson on 01-19-2024 CRP [Mass/Vol] < 0.5 mg/dL 0.0-0.5 [facility] C-Reactive Proteinon 024 CRP [Mass/Vol] mg/L Normal 0.0-0.5 [facility] Comment on above: Order Comment: Reaso n for Exam Chronic fatigue Reason for Exam Polyarthralgia;Chronic fatigue Result Comment: PERF ORMED BY: [place] [address] PATHOLOGIST RETURNING OFFICER AMANDA SALMERON M.D. Performed By: #### P TT MIX, ANCA PROF, LYME AB wRFX, GAUTAM CHOICE #### [facility] , #### A1C WTH eA, PT, CMP, ESR, CRP, CBC #### [facility] [address] [place] [address] Calcium [Mass/volume] in Ser um or PlasmaOrdered By: Guilherme Dotson on 01-19-2024 Calcium [Mass/Vol] 9.7 mg/dL Normal 8.6-10.3 [facility] Comment on above: Order Comment: Reaso n for Exam Chronic fatigue Reason for Exam Polyarthralgia;Chronic fatigue Performed By: #### P TT MIX, ANCA PROF, LYME AB wRFX, GAUTAM CHOICE #### [facility] , #### A1C WTH eA, PT, CMP, ESR, CRP, CBC #### [facility] [address] Carbon dioxide, total [Moles /volume] in Serum or PlasmaOrdered By: Guilherme Dotson on 01-19-2024 CO2 [Moles/Vol] 28.8 mmol/L Normal 21.0-31.[address] [facility] Comment on above: Order Comment: Reaso n for Exam Chronic fatigue Reason for Exam Polyarthralgia;Chronic fatigue Performed By: #### P TT MIX, ANCA PROF, LYME AB wRFX, GAUTAM CHOICE #### [facility] , #### A1C WTH eA, PT, CMP, ESR, CRP, CBC #### [facility] [address] Chloride [Moles/volume] in S minh or PlasmaOrdered By: Guilehrme Dotson on 01-19-2024 Chloride [Moles/Vol] 104 mmol/L Normal 98-107 [facility] [place] [facility] Comment on above: Order Comment: Reaso n for Exam Chronic fatigue Reason for Exam Polyarthralgia;Chronic fatigue Performed By: #### P TT MIX, ANCA PROF, LYME AB wRFX, GAUTAM CHOICE #### [facility] , #### A1C WTH eA, PT, CMP, ESR, CRP, CBC #### [facility] [address] [place] [address] [place] Complete Blood Count Auto Di ffon 01-19-2024 Mean Corpuscular HGB Conc 35.0 g/dL Normal 32.0-35.0 [facility] Comment on above: Order Comment: Reaso n for Exam Chronic fatigue Reason for Exam Polyarthralgia;Chronic fatigue Performed By: #### P TT MIX, ANCA PROF, LYME AB wRFX, GAUTAM CHOICE #### [facility] , #### A1C WTH eA, PT, CMP, ESR, CRP, CBC #### [address] NRBC% 0.0 /100{WBC} Normal 0-0.5 [facility] Comment on above: Order Comment: Reaso n for Exam Chronic fatigue Reason for Exam Polyarthralgia;Chronic fatigue Performed By: #### P TT MIX, ANCA PROF, LYME AB wRFX, GAUTAM CHOICE #### [facility] , #### A1C WTH eA, PT, CMP, ESR, CRP, CBC #### [address] Comprehensive Metabolic Pane [facility] 01-19-2024 Albumin [Mass/Vol] 4.2 g/dL Normal 3.5-5.7 [facility] Comment on above: Order Comment: Reaso n for Exam Chronic fatigue Reason for Exam Polyarthralgia;Chronic fatigue Performed By: #### P TT MIX, ANCA PROF, LYME AB wRFX, GAUTAM CHOICE #### [facility] , #### A1C WTH eA, PT, CMP, ESR, CRP, CBC #### [address] GFR/1.73 sq M.predicted MDRD (S/P/Bld) [Vol rate/Area] mL/min/{1.73_m2} Normal [facility] Comment on above: Order Comment: Reaso n for Exam Chronic fatigue Reason for Exam Polyarthralgia;Chronic fatigue Performed By: #### P TT MIX, ANCA PROF, LYME AB wRFX, GAUTAM CHOICE #### [facility] , #### A1C WTH eA, PT, CMP, ESR, CRP, CBC #### [address] Creatinine [Mass/volume] in Serum or PlasmaOrdered By: Guilherme Dotson on 01-19-2024 Creatinine [Mass/Vol] 0.80 mg/dL Normal 0.60-1.20 [facility] Comment on above: Order Comment: Reaso n for Exam Chronic fatigue Reason for Exam Polyarthralgia;Chronic fatigue Performed By: #### P TT MIX, ANCA PROF, LYME AB wRFX, GAUTAM CHOICE #### [facility] , #### A1C WTH eA, PT, CMP, ESR, CRP, CBC #### [facility] [address] [place] [address] Erythrocyte Sedimentation Ra harriet 01-19-2024 ESR (Bld) [Velocity] 34 mm/h High 0-19 [facility] Comment on above: Order Comment: Reaso n for Exam Chronic fatigue Reason for Exam Polyarthralgia;Chronic fatigue Result Comment: PERF ORMED BY: [place] [address] PATHOLOGIST RETURNING OFFICER AMANDA SALMERON M.D. Performed By: #### P TT MIX, ANCA PROF, LYME AB wRFX, GAUTAM CHOICE #### [facility] , #### A1C WTH eA, PT, CMP, ESR, CRP, CBC #### [facility] [address] [place] [address] Erythrocyte distribution wid th [Ratio] by Automated countOrdered By: Guilherme Dotson on 01-19-2024 Erythrocyte distribution width (RBC) [Ratio] 13.6 % Normal 11.9-15.3 [facility] Comment on above: Order Comment: Reaso n for Exam Chronic fatigue Reason for Exam Polyarthralgia;Chronic fatigue Performed By: #### P TT MIX, ANCA PROF, LYME AB wRFX, GAUTAM CHOICE #### [facility] , #### A1C WTH eA, PT, CMP, ESR, CRP, CBC #### [facility] [address] [place] [address] Erythrocyte sedimentation ra te by Photometric methodOrdered By: Guilherme Dotson on 01-19-2024 ESR Photometric method (Bld) [Velocity] 34 mm/hr High 0-19 [facility] Erythrocytes [#/volume] in B lood by Automated countOrdered By: Guilherme Dotson on 01-19-2024 RBC (Bld) [#/Vol] 4.55 10*6/uL Normal 3.60-5.00 [facility] Comment on above: Order Comment: Reaso n for Exam Chronic fatigue Reason for Exam Polyarthralgia;Chronic fatigue Performed By: #### P TT MIX, ANCA PROF, LYME AB wRFX, GAUTAM CHOICE #### [facility] , #### A1C WTH eA, PT, CMP, ESR, CRP, CBC #### [facility] [address] [place] [address] [place] Factor substitution activate d partial thromboplastin time (aPTT) in control plateletOrdered By: Guilherme Dotson on 01-19-2024 aPTT.factor substitution 1 Hr post incubation with normal plasma Coag (PPP control) [Time] N/A [facility] Glucose [Mass/volume] in Ser um or PlasmaOrdered By: Guilherme Dotson on 01-19-2024 Glucose [Mass/Vol] 122 mg/dL High 70-100 [facility] Comment on above: ADA recommended refe rence rangeRandom Glucose Reference Range is dependent on time and content of last meal. Glucose of more than 200 mg/dL in a nonstressed, ambulatory subject supports the diagnosis of Diabetes Mellitus. Order Comment: Reaso n for Exam Chronic fatigue Reason for Exam Polyarthralgia;Chronic fatigue Result Comment: [place] om Glucose Reference Range is dependent on time and content of last meal. Glucose of more than 200 mg/dL in a nonstressed, ambulatory subject supports the diagnosis of Diabetes Mellitus. ADA recommended reference range Performed By: #### P TT MIX, ANCA PROF, LYME AB wRFX, GAUTAM CHOICE #### [facility] , #### A1C WTH eA, PT, CMP, ESR, CRP, CBC #### [facility] [address] [place] [id number] [place] Glucose mean value [Mass/vol ume] in Blood Estimated from glycated hemoglobinOrdered By: Guilherme Dotson on 01-19-2024 Average glucose Estimated from glycated hemoglobin (Bld) [Mass/Vol] 126 mg/dL [facility] Hematocrit [Volume Fraction] of Blood by Automated countOrdered By: Guilherme Dotson on 01-19-2024 Hematocrit (Bld) [Volume fraction] 36.8 % Normal 34.0-46.4 [facility] Comment on above: Order Comment: Reaso n for Exam Chronic fatigue Reason for Exam Polyarthralgia;Chronic fatigue Performed By: #### P TT MIX, ANCA PROF, LYME AB wRFX, GAUTAM CHOICE #### [facility] , #### A1C WTH eA, PT, CMP, ESR, CRP, CBC #### [facility] [address] Hemoglobin A1c percentageOrd ered By: Guilherme Dotson on 01-19-2024 HbA1c (Bld) [Mass fraction] 6.0 % High 4.3-5.6 [facility] Comment on above: Increased risk for d iabetes: 5.7 - 6.4diabetes: >6.4glycemic control for adults with diabetes: <7.0 Order Comment: Reaso n for Exam Chronic fatigue Result Comment: Incr eased risk for diabetes: 5.7 - 6.4 diabetes: >6.4 glycemic control for adults with diabetes: <7.0 Performed By: #### P TT MIX, ANCA PROF, LYME AB wRFX, GAUTAM CHOICE #### [facility] , #### A1C WTH eA, PT, CMP, ESR, CRP, CBC #### [facility] [address] Hemoglobin [Mass/volume] in BloodOrdered By: Guilherme Dotson on 01-19-2024 Hemoglobin (Bld) [Mass/Vol] 12.9 g/dL Normal 11.8-15.4 [facility] Comment on above: Order Comment: Reaso n for Exam Chronic fatigue Reason for Exam Polyarthralgia;Chronic fatigue Performed By: #### P TT MIX, ANCA PROF, LYME AB wRFX, GAUTAM CHOICE #### [facility] , #### A1C WTH eA, PT, CMP, ESR, CRP, CBC #### [facility] [address] [place] [address] INR in Platelet poor plasma by Coagulation assayOrdered By: Guilherme Dotson on 01-19-2024 INR Coag (PPP) [Relative time] 1.0 {INR} Normal [facility] Comment on above: INR Therapeutic Rang e A) Pre- and Peroperative OAT started two weeks before surgery. NOT HIP SURGERY: 1.5 - 2.5 HIP SURGERY: 2 - 3B) Primary and secondary prevention of venous THROMBOSIS: 2 - 3C) Active venous thrombosis, pulmonary embolismand prevention of recurrent venous thrombosis: 2 - 3D) Prevention of arterial thromboembolismincluding patients with mechanical heart valves: 3 - 4.5 Order Comment: Reaso n for Exam Easy bruising List the anticoagulant: IBUPROFEN Result Comment: INR Therapeutic Range A) Pre- and Peroperative OAT started two weeks before surgery. NOT HIP SURGERY: 1.5 - 2.5 HIP SURGERY: 2 - 3 B) Primary and secondary prevention of venous THROMBOSIS: 2 - 3 C) Active venous thrombosis, pulmonary embolism and prevention of recurrent venous thrombosis: 2 - 3 D) Prevention of arterial thromboembolism including patients with mechanical heart valves: 3 - 4.5 PERFORMED BY: [place] [address] PATHOLOGIST RETURNING OFFICER AMANDA SALMERON M.D. Performed By: #### P TT MIX, ANCA PROF, LYME AB wRFX, GAUTAM CHOICE #### [facility] , #### A1C WTH eA, PT, CMP, ESR, CRP, CBC #### [facility] [address] [place] [address] Leukocytes [#/volume] correc mainor for nucleated erythrocytes in Blood by Automated counOrdered By: Guilherme Dotson on 01-19-2024 WBC corrected for nucl RBC Auto (Bld) [#/Vol] 10.1 10*3/uL 3.8-11.6 [facility] Leukocytes [#/volume] in Blo od by Automated countOrdered By: Guilherme Dotson on 01-19-2024 WBC (Bld) [#/Vol] 10.1 10*3/uL Normal 3.8-11.6 [facility] Comment on above: Order Comment: Reaso n for Exam Chronic fatigue Reason for Exam Polyarthralgia;Chronic fatigue Performed By: #### P TT MIX, ANCA PROF, LYME AB wRFX, GAUTAM CHOICE #### [facility] , #### A1C WTH eA, PT, CMP, ESR, CRP, CBC #### [facility] [address] Lyme, Total Ab with Reflexon 01-19-2024 Lyme Total Antibody Negative Normal Negative [facility] Comment on above: Order Comment: Reaso n for Exam Polyarthralgia;Chronic fatigue Reason for Exam Chronic fatigue Result Comment: Lyme antibodies not detected. Reflex testing is not indicated. No laboratory evidence of infection with B. burgdorferi (Lyme disease). Negative results may occur in patients recently infected (less than or equal to 14 days) with B. burgdorferi. If recent infection is suspected, repeat testing on a new sample collected in 7 to 14 days is recommended. Performed at: [address] [id number] Web Services Professional: Rudy Mills PhD, Phone: [phone] Performed By: #### P TT MIX, ANCA PROF, LYME AB wRFX, GAUTAM CHOICE ####[facility] ,#### A1C WTH eA, PT, CMP, ESR, CRP, CBC ####[facility] [place] [address] [place] Lymphocytes [#/volume] in Bl ood by Automated countOrdered By: Guilherme Dotson on 01-19-2024 Lymphocytes (Bld) [#/Vol] 2.4 10*3/uL Normal 1.00-4.8 [facility] Comment on above: Order Comment: Reaso n for Exam Chronic fatigue Reason for Exam Polyarthralgia;Chronic fatigue Performed By: #### P TT MIX, ANCA PROF, LYME AB wRFX, GAUTAM CHOICE #### [facility] , #### A1C WTH eA, PT, CMP, ESR, CRP, CBC #### [facility] [address] [place] [address] [place] Lymphocytes/100 leukocytes i n Blood by Automated countOrdered By: Guilherme Dotson on 01-19-2024 Lymphocytes/100 WBC (Bld) 23.9 % Normal . [facility] Comment on above: Order Comment: Reaso n for Exam Chronic fatigue Reason for Exam Polyarthralgia;Chronic fatigue Performed By: #### P TT MIX, ANCA PROF, LYME AB wRFX, GAUTAM CHOICE #### [facility] , #### A1C WTH eA, PT, CMP, ESR, CRP, CBC #### [facility] [address] MCH [Entitic mass] by Automa mainor countOrdered By: Guilherme Dotson on 01-19-2024 MCH (RBC) [Entitic mass] 28.2 pg Normal 24.7-34.3 [facility] Comment on above: Order Comment: Reaso n for Exam Chronic fatigue Reason for Exam Polyarthralgia;Chronic fatigue Performed By: #### P TT MIX, ANCA PROF, LYME AB wRFX, GAUTAM CHOICE #### [facility] , #### A1C WTH eA, PT, CMP, ESR, CRP, CBC #### [facility] [address] MCHC Auto (RBC) [Mass/Vol]Or dered By: Guilherme Dotson on 01-19-2024 MCHC (RBC) [Mass/Vol] 35.0 g/dL 32.0-35.0 [facility] MCV [Entitic volume] by Auto mated countOrdered By: Guilherme Dotson on 01-19-2024 MCV (RBC) [Entitic vol] 80.8 fL Normal 80-100 [facility] Comment on above: Order Comment: Reaso n for Exam Chronic fatigue Reason for Exam Polyarthralgia;Chronic fatigue Performed By: #### P TT MIX, ANCA PROF, LYME AB wRFX, GAUTAM CHOICE #### [facility] , #### A1C WTH eA, PT, CMP, ESR, CRP, CBC #### [facility] [address] Myeloperoxidase Ab [Units/vo lume] in Serum by ImmunoassayOrdered By: Guilherme Dotson on 01-19-2024 Myeloperoxidase Ab IA Qn (S) <0.2 units 0.0-0.9 [facility] Neutrophils [#/volume] in Bl ood by Automated countOrdered By: Guilherme Dotson on 01-19-2024 Neutrophils (Bld) [#/Vol] 6.8 10*3/uL Normal 1.8-7.7 [facility] Comment on above: Order Comment: Reaso n for Exam Chronic fatigue Reason for Exam Polyarthralgia;Chronic fatigue Performed By: #### P TT MIX, ANCA PROF, LYME AB wRFX, GAUTAM CHOICE #### [facility] , #### A1C WTH eA, PT, CMP, ESR, CRP, CBC #### [facility] [address] No Panel InformationOrdered By: Guilherme Dotson on 01-19-2024 Atypical p-ANCA <1:20 titer Neg:<1:[address] [facility] Comment on above: The atypical pANCA p attern has been observed in asignificant percentage of patients with ulcerative colitis,primary sclerosing cholangitis and autoimmune hepatitis.Performed at: - [facility] [id number] Director: Jair Nunn MD, Phone: [phone] at: - [facility] [id number] Director: Rudy Mills PhD, Phone: [phone] Estimated GFR (CKD-EPI) > 60.0 mL/Min [facility] Perinuclear ANCA (p-ANCA) Antibody <1:20 titer Neg:<1:20 [facility] Comment on above: The presence of posi tive fluorescence exhibiting P-ANCA orC-ANCA patterns alone is not specific for the diagnosis ofWegener's Granulomatosis (WG) or microscopic polyangiitis.Decisions about treatment should not be based solely onANCA IFA results. The International ANCA Group Consensusrecommends follow up testing of positive sera with both PA-3 and MPO-ANCA enzyme immunoassays. As many as 5% serumsamples are positive only by EIA. Ref. AM J Clin Uncldc3400;111:507-513. Pharmacy Creatinine Clearance (Chem N/A [facility] Nucleated erythrocytes [Pres ence] in Blood by Automated countOrdered By: Guilherme Dotson on 01-19-2024 Nucleated RBC Auto Ql (Bld) 0.0 /100{WBC} 0-0.5 [facility] Partial thromboplastin time (PTT) immediate mixOrdered By: Guilherme Dotson on 01-19-2024 aPTT.factor substitution immediately after addition of normal plasma Coag (PPP) [Time] See comment . [facility] Comment on above: Test not performed Platelet mean volume [Entiti c volume] in Blood by Automated countOrdered By: Guilherme Dotson on 01-19-2024 Platelet mean volume (Bld) [Entitic vol] 6.6 fL Normal 6.3-10.7 [facility] Comment on above: Order Comment: Reaso n for Exam Chronic fatigue Reason for Exam Polyarthralgia;Chronic fatigue Performed By: #### P TT MIX, ANCA PROF, LYME AB wRFX, GAUTAM CHOICE #### [facility] , #### A1C WTH eA, PT, CMP, ESR, CRP, CBC #### [facility] [address] [place] [address] Platelet poor plasma factor substitution activated partial thromboplastin time (aPTT)Ordered By: Guilherme Dotson on 01-19-2024 aPTT.factor substitution 1 Hr post incubation with normal plasma Coag (PPP) [Time] See comment . [facility] Comment on above: Test not performedPe rformed at: - [facility] [id number] [place], [place] [id number] Director: Jair Nunn MD, Phone: [phone] Platelets [#/volume] in Bloo d by Automated countOrdered By: Guilherme Dotson on 01-19-2024 Platelets (Bld) [#/Vol] 531 10*3/uL High 150-450 [facility] Comment on above: Order Comment: Reaso n for Exam Chronic fatigue Reason for Exam Polyarthralgia;Chronic fatigue Performed By: #### P TT MIX, ANCA PROF, LYME AB wRFX, GAUTAM CHOICE #### [facility] , #### A1C WTH eA, PT, CMP, ESR, CRP, CBC #### [facility] [address] [place] [address] [place] Potassium [Moles/volume] in Serum or PlasmaOrdered By: Guilherme Dotson on 01-19-2024 Potassium [Moles/Vol] 4.7 mmol/L Normal 3.5-5.1 [facility] Comment on above: Order Comment: Reaso n for Exam Chronic fatigue Reason for Exam Polyarthralgia;Chronic fatigue Performed By: #### P TT MIX, ANCA PROF, LYME AB wRFX, GAUTAM CHOICE #### [facility] , #### A1C WTH eA, PT, CMP, ESR, CRP, CBC #### [facility] [address] [place] [address] [place] Protein [Mass/volume] in Ser um or PlasmaOrdered By: Guilherme Dotson on 01-19-2024 Protein [Mass/Vol] 7.6 g/dL Normal 6.4-8.9 [facility] Comment on above: Order Comment: Reaso n for Exam Chronic fatigue Reason for Exam Polyarthralgia;Chronic fatigue Performed By: #### P TT MIX, ANCA PROF, LYME AB wRFX, GAUTAM CHOICE #### [facility] , #### A1C WTH eA, PT, CMP, ESR, CRP, CBC #### [facility] [address] [place] [id number] [place] Proteinase 3 Ab [Units/volum e] in Serum by ImmunoassayOrdered By: Guilherme Dotson on 01-19-2024 Proteinase 3 Ab IA Qn (S) <0.2 units 0.0-0.9 [facility] Prothrombin time (PT)Ordered By: Guilherme Dotson on 01-19-2024 PT Coag (PPP) [Time] 11.3 s Normal 9.0-12.9 [facility] [place] [facility] Comment on above: A hematocrit value g reater than 55% may lead to inaccurate results in coagulation testing. Patients having hematocrit values >55% require a special collection tube for coagulation studies. Please contact the laboratory at [phone] for redraw instructions. Order Comment: Reaso n for Exam Easy bruising List the anticoagulant: IBUPROFEN Result Comment: A he matocrit value greater than 55% may lead to inaccurate results in coagulation testing. Patients having hematocrit values >55% require a special collection tube for coagulation studies. Please contact the laboratory at [phone] for redraw instructions. Performed By: #### P TT MIX, ANCA PROF, LYME AB wRFX, GAUTAM CHOICE #### [facility] , #### A1C WTH eA, PT, CMP, ESR, CRP, CBC #### [facility] [address] Serum classic neutrophil cyt oplasmic antibody titer by immunofluorescenceOrdered By: Guilherme Dotson on 01-19-2024 Neutrophil cytoplasmic Ab.classic IF (S) [Titer] <1:20 titer Neg:<1:20 [facility] Serum globulin measurement b y calculation (mass/volume)Ordered By: Guilherme Dotson on 01-19-2024 Globulin (S) [Mass/Vol] 3.4 g/dL Normal F [facility] Comment on above: Order Comment: Reaso n for Exam Chronic fatigue Reason for Exam Polyarthralgia;Chronic fatigue Performed By: #### P TT MIX, ANCA PROF, LYME AB wRFX, GAUTAM CHOICE #### [facility] , #### A1C WTH eA, PT, CMP, ESR, CRP, CBC #### [address] Serum or plasma albumin/glob ulin mass ratioOrdered By: Guilherme Dotson on 01-19-2024 Albumin/Globulin [Mass ratio] 1.2 {ratio} Normal [facility] Comment on above: Order Comment: Reaso n for Exam Chronic fatigue Reason for Exam Polyarthralgia;Chronic fatigue Performed By: #### P TT MIX, ANCA PROF, LYME AB wRFX, GAUTAM CHOICE #### [facility] , #### A1C WTH eA, PT, CMP, ESR, CRP, CBC #### [address] Serum or plasma anion gap de terminationOrdered By: Guilherme Dotson on 01-19-2024 Anion gap [Moles/Vol] 9.9 mmol/L Normal 6.0-15.0 [facility] Comment on above: Order Comment: Reaso n for Exam Chronic fatigue Reason for Exam Polyarthralgia;Chronic fatigue Performed By: #### P TT MIX, ANCA PROF, LYME AB wRFX, GAUTAM CHOICE #### [facility] , #### A1C WTH eA, PT, CMP, ESR, CRP, CBC #### [facility] [address] Serum or plasma free cefurox mayra measurement (mass/volume)Ordered By: Guilherme Dotson on 01-19-2024 Cefuroxime free [Mass/Vol] Negative Negative [facility] Comment on above: Performed at: [address] Director: Rudy Mills PhD, Phone: [phone] Sodium [Moles/volume] in Ser um or PlasmaOrdered By: Guilherme Dotson on 01-19-2024 Sodium [Moles/Vol] 138 mmol/L Normal 136-145 [facility] Comment on above: Order Comment: Reaso n for Exam Chronic fatigue Reason for Exam Polyarthralgia;Chronic fatigue Performed By: #### P TT MIX, ANCA PROF, LYME AB wRFX, GAUTAM CHOICE #### [facility] , #### A1C WTH eA, PT, CMP, ESR, CRP, CBC #### [facility] [address] [place] [address] Urea nitrogen [Mass/volume] in Serum or PlasmaOrdered By: Guilherme Dotson on 01-19-2024 Urea nitrogen [Mass/Vol] 11 mg/dL Normal 7-25 [facility] Comment on above: Order Comment: Reaso n for Exam Chronic fatigue Reason for Exam Polyarthralgia;Chronic fatigue Performed By: #### P TT MIX, ANCA PROF, LYME AB wRFX, GAUTAM CHOICE #### [facility] , #### A1C WTH eA, PT, CMP, ESR, CRP, CBC #### [facility] [address] [place] [address] aPTT Mixing Studyon 01-19-20 24 APTT 1:1 Mix Saline Normal . [facility] Comment on above: Order Comment: Reaso n for Exam Easy bruising Result Comment: Test not performed Performed By: #### P TT MIX, ANCA PROF, LYME AB wRFX, GAUTAM CHOICE #### [facility] , #### A1C WTH eA, PT, CMP, ESR, CRP, CBC #### [address] aPTT 1:1 Normal Plasma Normal . 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 [facility] Comment on above: Order Comment: Reaso n for Exam Easy bruising Result Comment: Test not performed Performed at: [facility] [id number] Web Services Professional: Jair Nunn MD, Phone: [phone] PERFORMED BY: [place] [address] PATHOLOGIST RETURNING OFFICER AMANDA SALMERON M.D. Performed By: #### P TT MIX, ANCA PROF, LYME AB wRFX, GAUTAM CHOICE #### [facility] , #### A1C WTH eA, PT, CMP, ESR, CRP, CBC #### [address] aPTT Coag (Bld) [Time] 25.8 s Normal 22.9-30.2 e [facility] Comment on above: Order Comment: Reaso n for Exam Easy bruising Result Comment: The aPTT is normal so plasma mixing tests are not indicated. Performed By: #### P TT MIX, ANCA PROF, LYME AB wRFX, GAUTAM CHOICE #### [facility] , #### A1C WTH eA, PT, CMP, ESR, CRP, CBC #### [facility] [address] COVID CepheidOrdered By: Ludy buckley Quin on 11-20-2023 SARS-CoV-2 (COVID-19) Ab IA Ql Negative Negative [facility] Comment on above: This is a duplicate Cepheid Xpert Xpress CoV-2/Flu/RSV Plus RNA by RT-PCR result to be used for statistical tracking purpose only. SARS-CoV-2 (COVID-19) RNA OG+probe Ql (Unsp spec) [facility] COVID-19 / Flu A/B / RSV PCR on 11-20-2023 SARS-CoV-2 (COVID-19) RNA OG+probe Ql (Unsp spec) COVID-19 Cepheid Result Negative for SARS-CoV-2 RNA by RT-PCR Flu A Cepheid Result Negative for Flu A RNA by RT-PCR Flu B Cepheid Result Negative for Flu B RNA by RT-PCR RSV Cepheid Result Negative for RSV RNA by RT-PCR COVID19 Blank Space ---- Reference: Negative COVID19 Blank Space ---- Cepheid Disclaimer The Cepheid Xpert Xpress CoV-2/Flu/RSV Plus has Cepheid Disclaimer not been FDA cleared or approved; this test has Cepheid Disclaimer been authorized by FDA under an EUA for use by Cepheid Disclaimer authorized laboratories; this test has been Cepheid Disclaimer authorized only for the simultaneous qualitative Cepheid Disclaimer detection and differentiation of nucleic acids from Cepheid Disclaimer SARS-CoV-2, influenza A, influenza B, and Cepheid Disclaimer respiratory syncytial virus (RSV), and not for any Cepheid Disclaimer other viruses or pathogens; and this test is only Cepheid Disclaimer authorized for the duration of the declaration that Cepheid Disclaimer circumstances exist justifying the authorization of Cepheid Disclaimer emergency use of in vitro diagnostic tests for Cepheid Disclaimer detection and/or diagnosis of COVID-19 under Cepheid Disclaimer Section 564(b)(1) of the Act, 21 U.S.C. 360bbb- Cepheid Disclaimer 3(b)(1), unless the authorization is terminated or Cepheid Disclaimer revoked sooner. PERFORMED BY: [place] [address] PATHOLOGIST RETURNING OFFICER AMANDA SALMERON M.D. Normal [facility] Comment on above: Performed By: #### C EPHEID NEG, COVID19 FLU RSV ####[place] [id number] [facility] Cepheid COVID PCR Negativeon 11-20-2023 SARS-CoV-2 (COVID-19) RNA OG+probe Ql (Unsp spec) Negative Normal Negative [facility] Comment on above: Result Comment: This is a duplicate Cepheid Xpert Xpress CoV-2/Flu/RSV Plus RNA by RT-PCR result to be used for statistical tracking purpose only. PERFORMED BY: [place] [address] PATHOLOGIST RETURNING OFFICER AMANDA SALMERON M.D. Performed By: #### C EPHEID NEG, COVID19 FLU RSV ####[place] [id number] [facility] ECG 12 lead ECGon 11-20-2023 ECG 12 lead ECG [facility] [place] [address] [place], [place] [id number] Electrocardiograph Report Signed Patient: Laure Miramontes MR#: [id number] : 1980 Acct:[id number] Age/Sex: 43 / F ADM Date: 11/20/23 Loc: ER Room: Type: DEP ER Attending Dr: Ordering Provider: Aodlfo Tsai DO Date of Service: 11/20/2310/13/152 ECG/ECG 12 lead ECG: Chest Pain Copies to: Test Reason : Blood Pressure : 110/058 mmHG Vent. Rate : 082 BPM Atrial Rate : 082 BPM P-R Int : 118 ms QRS Dur : 096 ms QT Int : 376 ms P-R-T Axes : 078 084 068 degrees QTc Int : 439 ms Normal sinus rhythm Normal ECG When compared with ECG of 25-AUG-2023 16:28, T wave inversion no longer evident in Inferior leads Nonspecific T wave abnormality no longer evident in Lateral leads Confirmed by ADOLFO TSAI DO ([id number]) on 11/20/2023 4:58:14 AM Referred By: Electronically Signed By:ADOLFO TSAI DO Transcribed By: MUS Signed By Adolfo Tsai DO 0458 Normal [facility] XR ribs LT min 3V w CXR1V*on 11-20-2023 XR ribs LT min 3V w CXR1V* [facility] [place] [address] [place] [address] XRay Report Signed Patient: Laure Miramontes MR#: [id number] : 1980 Acct:[id number] Age/Sex: 43 / F ADM Date: 11/20/23 Loc: ER Room: Type: [facility] ER Attending Dr: Copies to: Adolfo Tsai DO Ordering Provider: Adolfo Tsai DO Date of Service: 11/20/23 XR/XR ribs LT min 3V w CXR1V*: Chest Pain PA CHEST WITH LEFT RIBS: CLINICAL HISTORY: Cough for the past week with shortness of breath and left lower chest pain. No injury. COMPARISON: 08/25/2023 and 10/25/2020 The chest film shows no infiltrate, effusion or pneumothorax. The cardiac, hilar and mediastinal silhouettes are within normal limits. No vascular congestion is seen. There is subtle S-shaped scoliotic curvature. AP and both oblique views of the left ribs show subtle anterolateral sixth and seventh rib deformities, not definitely acute. No other acute displaced fractures or bony destruction are noted. XR/XR ribs LT min 3V w CXR1V* IMPRESSION: NO ACUTE CARDIOPULMONARY FINDINGS. SUBTLE LEFT RIB DEFORMITIES THOUGH NOT DEFINITELY ACUTE. Impression dictated by: Anastacia Latham M.D.11/20/2023 7:51 AM Dictation Location: [place] [address] Transcribed By: [facility] 11/20/23 0751 Dictated By: Anastacia Latham MD 11/20/23 0747 Signed By: 11/20/23 0751 Normal [facility] Activated partial thrombopla stin time (aPTT) in platelet poor plasma by coagulation aOrdered By: Carolyn Low on 08-25-2023 aPTT Coag (PPP) [Time] 33.2 s 25.1-36.5 [facility] Comment on above: A hematocrit value g reater than 55% may lead to inaccurate results in coagulation testing. Patients having hematocrit values >55% require a special collection tube for coagulation studies. Please contact the laboratory at [phone] for redraw instructions. Basophils Auto (Bld) [#/Vol] Ordered By: Carolyn Low on 08-25-2023 Basophils (Bld) [#/Vol] 0.1 10*3/uL 0.0-0.2 [facility] Basophils/100 WBC Auto (Bld) Ordered By: Carolyn Low on 08-25-2023 Basophils/100 WBC (Bld) 0.7 % . [facility] COVID CepheidOrdered By: PRO VIDER TEMP on 08-25-2023 SARS-CoV-2 (COVID-19) Ab IA Ql Negative Negative [facility] Comment on above: This is a duplicate CepYapStoneid Xpert Xpress CoV-2/Flu/RSV Plus RNA by RT-PCR result to be used for statistical tracking purpose only. COVID CepheidOrdered By: Cathryn Low on 08-25-2023 SARS-CoV-2 (COVID-19) RNA OG+probe Ql (Unsp spec) [facility] SARS-CoV-2 (COVID-19) RNA OG+probe Ql (Unsp spec) [facility] Calcium [Mass/volume] in Ser um or PlasmaOrdered By: Carolyn Low on 08-25-2023 Calcium [Mass/Vol] 9.3 mg/dL 8.6-10.3 [facility] Carbon dioxide, total [Moles /volume] in Serum or PlasmaOrdered By: Carolyn Low on 08-25-2023 CO2 [Moles/Vol] 25.0 mmol/L 21.0-31.[address] [facility] Chloride [Moles/volume] in S minh or PlasmaOrdered By: Carolyn Low on 08-25-2023 Chloride [Moles/Vol] 105 mmol/L 98-107 [facility] [place] [facility] Creatinine [Mass/volume] in Serum or PlasmaOrdered By: Carolyn Low on 08-25-2023 Creatinine [Mass/Vol] 0.64 mg/dL 0.60-1.20 [facility] Eosinophils Auto (Bld) [#/Vo l]Ordered By: Carolyn Low on 08-25-2023 Eosinophils (Bld) [#/Vol] 0.1 10*3/uL 0.0-0.45 [facility] Eosinophils/100 WBC Auto (Bl d)Ordered By: Carolyn Low on 08-25-2023 Eosinophils/100 WBC (Bld) 1.1 % . [facility] Erythrocyte distribution wid th Auto (RBC) [Ratio]Ordered By: Carolyn Low on 08-25-2023 Erythrocyte distribution width (RBC) [Ratio] 12.8 % 11.9-15.3 [facility] Glucose [Mass/volume] in Ser um or PlasmaOrdered By: Carolyn Low on 08-25-2023 Glucose [Mass/Vol] 102 mg/dL 70-100 [facility] Comment on above: ADA recommended refe rence rangeRandom Glucose Reference Range is dependent on time and content of last meal. Glucose of more than 200 mg/dL in a nonstressed, ambulatory subject supports the diagnosis of Diabetes Mellitus. Hematocrit Auto (Bld) [Volum e fraction]Ordered By: Carolyn Low on 08-25-2023 Hematocrit (Bld) [Volume fraction] 34.9 % 34.0-46.4 [facility] Hemoglobin [Mass/volume] in BloodOrdered By: Carolyn Low on 08-25-2023 Hemoglobin (Bld) [Mass/Vol] 12.6 g/dL 11.8-15.4 [facility] INR in Platelet poor plasma by Coagulation assayOrdered By: Carolyn Low on 08-25-2023 INR Coag (PPP) [Relative time] 1.1 {INR} [facility] Comment on above: INR Therapeutic Rang e A) Pre- and Peroperative OAT started two weeks before surgery. NOT HIP SURGERY: 1.5 - 2.5 HIP SURGERY: 2 - 3B) Primary and secondary prevention of venous THROMBOSIS: 2 - 3C) Active venous thrombosis, pulmonary embolismand prevention of recurrent venous thrombosis: 2 - 3D) Prevention of arterial thromboembolismincluding patients with mechanical heart valves: 3 - 4.5 Leukocytes [#/volume] correc mainor for nucleated erythrocytes in Blood by Automated counOrdered By: Carolyn Low on 08-25-2023 WBC corrected for nucl RBC Auto (Bld) [#/Vol] 10.7 10*3/uL 3.8-11.6 [facility] Lymphocytes Auto (Bld) [#/Vo l]Ordered By: Carolyn Low on 08-25-2023 Lymphocytes (Bld) [#/Vol] 2.9 10*3/uL 1.00-4.8 [facility] Lymphocytes/100 WBC Auto (Bl d)Ordered By: Carolyn Low on 08-25-2023 Lymphocytes/100 WBC (Bld) 27.2 % . [facility] MCH Auto (RBC) [Entitic mass ]Ordered By: Carolyn Low on 08-25-2023 MCH (RBC) [Entitic mass] 28.9 pg 24.7-34.3 [facility] MCHC Auto (RBC) [Mass/Vol]Or dered By: Carolyn Low on 08-25-2023 MCHC (RBC) [Mass/Vol] 36.0 g/dL 32.0-35.0 [facility] MCV Auto (RBC) [Entitic vol] Ordered By: Carolyn Low on 08-25-2023 MCV (RBC) [Entitic vol] 80.3 fL 80-100 [facility] Monocyte distribution width [Entitic volume] in Blood by AutomatedOrdered By: Carolyn Low on 08-25-2023 Monocyte distribution width Auto (Bld) [Entitic vol] 15.64 % 0.00-20.00 [facility] [facility] Auto (Bld) [#/Vol] Ordered By: Carolyn Low on 08-25-2023 Monocytes (Bld) [#/Vol] 0.6 10*3/uL 0.0-0.8 [facility] Monocytes/100 WBC Auto (Bld) Ordered By: Carolyn Low on 08-25-2023 Monocytes/100 WBC (Bld) 6.0 % . [facility] Neutrophils Auto (Bld) [#/Vo l]Ordered By: Carolyn Low on 08-25-2023 Neutrophils (Bld) [#/Vol] 6.9 10*3/uL 1.8-7.7 [facility] Neutrophils/100 WBC Auto (Bl d)Ordered By: Carolyn Low on 08-25-2023 Neutrophils/100 WBC (Bld) 65.0 % . [facility] No Panel InformationOrdered By: Carolyn Low on 08-25-2023 Estimated GFR (CKD-EPI) > 60.0 mL/Min [facility] Creatinine Clearance (Chem 104.64 [facility] Nucleated erythrocytes [Pres ence] in Blood by Automated countOrdered By: Carolyn Low on 08-25-2023 Nucleated RBC Auto Ql (Bld) 0.1 /100{WBC} 0-0.5 [facility] Platelet mean volume Auto (B ld) [Entitic vol]Ordered By: Carolyn Low on 08-25-2023 Platelet mean volume (Bld) [Entitic vol] 6.6 fL 6.3-10.7 [facility] Platelets Auto (Bld) [#/Vol] Ordered By: Carolyn Low on 08-25-2023 Platelets (Bld) [#/Vol] 482 10*3/uL 150-450 [facility] Potassium [Moles/volume] in Serum or PlasmaOrdered By: Carolyn Low on 08-25-2023 Potassium [Moles/Vol] 3.5 mmol/L 3.5-5.1 [facility] Prothrombin time (PT)Ordered By: Carolyn Low on 08-25-2023 PT Coag (PPP) [Time] 13.1 s 9.0-12.9 [facility] Comment on above: A hematocrit value g reater than 55% may lead to inaccurate results in coagulation testing. Patients having hematocrit values >55% require a special collection tube for coagulation studies. Please contact the laboratory at [phone] for redraw instructions. RBC Auto (Bld) [#/Vol]Ordere d By: Carolyn Low on 08-25-2023 RBC (Bld) [#/Vol] 4.35 10*6/uL 3.60-5.00 [facility] Serum or plasma anion gap de terminationOrdered By: Carolyn Low on 08-25-2023 Anion gap [Moles/Vol] 12.5 mmol/L 6.0-15.0 [facility] Sodium [Moles/volume] in Ser um or PlasmaOrdered By: Carolyn Low on 08-25-2023 Sodium [Moles/Vol] 139 mmol/L 136-145 [facility] Troponin I.cardiac [Mass/vol ume] in Serum or Plasma by Detection limit <= 0.01 ng/Ordered By: Carolyn Low on 08-25-2023 Troponin I.cardiac DL <= 0.01 ng/mL [Mass/Vol] < 2.3 pg/mL 0.0-15.0 [facility] Urea nitrogen [Mass/volume] in Serum or PlasmaOrdered By: Carolyn Low on 08-25-2023 Urea nitrogen [Mass/Vol] 11 mg/dL 03-13 [facility] WBC Auto (Bld) [#/Vol]Ordere d By: Carolyn Low on 08-25-2023 WBC (Bld) [#/Vol] 10.7 10*3/uL 3.8-11.6 [facility] Actin smooth muscle IgG Ab [ Units/volume] in SerumOrdered By: Erlin Felipe on 03-13-2023 Actin smooth muscle IgG Qn (S) 3 Units 0-19 [facility] Comment on above: Negative 0 - 19 Weak positive 20 - 30 Moderate to strong positive >30 Actin Antibodies are found in 52-85% of patients with autoimmune hepatitis or chronic active hepatitis and in 22% of patients with primary biliary cirrhosis.Performed at: [facility] [address] [id number] Director: Rudy Mills PhD, Phone: [phone] Glucose mean value [Mass/vol ume] in Blood Estimated from glycated hemoglobinOrdered By: Erlin Felipe on 03-13-2023 Average glucose Estimated from glycated hemoglobin (Bld) [Mass/Vol] 137 mg/dL [facility] Hemoglobin A1c percentageOrd ered By: Erlin Felipe on 03-13-2023 HbA1c (Bld) [Mass fraction] 6.4 % 4.3-5.6 [facility] Comment on above: Increased risk for d iabetes: 5.7 - 6.4diabetes: >6.4glycemic control for adults with diabetes: <7.0 No Panel InformationOrdered By: Erlin Felipe on 03-13-2023 [employer] Antibody <0.2 AI 0.0-0.9 [facility] Scl-70 antibody assayOrdered By: Erlin Felipe on 03-13-2023 SCL-70 extractable nuclear Ab IA Qn (S) <0.2 AI 0.0-0.9 [facility] Comment on above: Performed at: [facility] [address] [id number] Director: Rudy Mills PhD, Phone: [phone] Serum Sjogrens syndrome-A ex tractable nuclear antibody assay (units/volume)Ordered By: Erlin Felipe on 03-13-2023 Sjogrens syndrome-A extractable nuclear Ab Qn (S) <0.2 AI 0.0-0.9 [facility] Serum Sjogrens syndrome-B ex tractable nuclear antibody assay (units/volume)Ordered By: Erlin Felipe on 03-13-2023 Sjogrens syndrome-B extractable nuclear Ab Qn (S) <0.2 AI 0.0-0.9 [facility] Serum or plasma cyclic adeno sine monophosphate measurement (moles/volume)Ordered By: Erlin Felipe on 03-13-2023 Adenosine monophosphate.cyclic [Moles/Vol] 5 units 0-19 [facility] Comment on above: Negative <20 Weak po sitive 20 - 39 Moderate positive 40 - 59 Strong positive >59Performed at: - [facility] [id number] [place], [place] [id number] Director: Rudy Mills PhD, Phone: [phone] Alanine aminotransferase [En zymatic activity/volume] in Serum or PlasmaOrdered By: Erlin Felipe on 03-07-2023 ALT [Catalytic activity/Vol] 20 U/L 7-52 [facility] Albumin [Mass/volume] in Ser um or Plasma by Bromocresol green (BCG) dye binding methoOrdered By: Erlin Felipe on 03-07-2023 Albumin BCG dye [Mass/Vol] 4.7 g/dL 3.5-5.7 [facility] Alkaline phosphatase [Enzyma tic activity/volume] in Serum or PlasmaOrdered By: Erlin Felipe on 03-07-2023 ALP [Catalytic activity/Vol] 70 U/L 34-104 [facility] Aspartate aminotransferase [ Enzymatic activity/volume] in Serum or PlasmaOrdered By: Erlin Felipe 03-07-2023 AST [Catalytic activity/Vol] 24 U/L 13-39 [facility] Basophils Auto (Bld) [#/Vol] Ordered By: Erlin Felipe on 03-07-2023 Basophils (Bld) [#/Vol] 0.1 10*3/uL 0.0-0.2 [facility] Basophils/100 WBC Auto (Bld) Ordered By: Erlin Felipe on 03-07-2023 Basophils/100 WBC (Bld) 0.6 % . [facility] Bilirubin.total [Mass/volume ] in Serum or PlasmaOrdered By: Erlin Felipe on 03-07-2023 Bilirubin [Mass/Vol] 0.4 mg/dL 0.3-1.0 [facility] C reactive protein [Mass/vol ume] in Serum or PlasmaOrdered By: Erlin Felipe on 03-07-2023 CRP [Mass/Vol] 0.5 mg/dL 0.0-0.5 [facility] Calcium [Mass/volume] in Ser um or PlasmaOrdered By: Erlin Felipe on 03-07-2023 Calcium [Mass/Vol] 10.1 mg/dL 8.6-10.3 [facility] Carbon dioxide, total [Moles /volume] in Serum or PlasmaOrdered By: Erlin Felipe 03-07-2023 CO2 [Moles/Vol] 27.8 mmol/L 21.0-31.[address] [facility] Chloride [Moles/volume] in S minh or PlasmaOrdered By: Erlin Felipe on 03-07-2023 Chloride [Moles/Vol] 102 mmol/L 98-107 [facility] Creatinine [Mass/volume] in Serum or PlasmaOrdered By: Erlin Felipe 03-07-2023 Creatinine [Mass/Vol] 0.89 mg/dL 0.60-1.20 [facility] Eosinophils Auto (Bld) [#/Vo l]Ordered By: Erlin Felipe 03-07-2023 Eosinophils (Bld) [#/Vol] 0.2 10*3/uL 0.0-0.45 [facility] Eosinophils/100 WBC Auto (Bl d)Ordered By: Erlin Felipe 03-07-2023 Eosinophils/100 WBC (Bld) 1.8 % . [facility] Erythrocyte distribution wid th Auto (RBC) [Ratio]Ordered By: Erlin Felipe 03-07-2023 Erythrocyte distribution width (RBC) [Ratio] 12.9 % 11.9-15.3 [facility] Erythrocyte sedimentation ra te by Photometric methodOrdered By: Erlin Felipe 03-07-2023 ESR Photometric method (Bld) [Velocity] 10 mm/hr [facility] Ferritin [Mass/volume] in Se rum or PlasmaOrdered By: Erlin Felipe 03-07-2023 Ferritin [Mass/Vol] 52.0 ng/mL 11.0-306.8 [facility] Globulin Calc (S) [Mass/Vol] Ordered By: Erlin Felipe 03-07-2023 Globulin (S) [Mass/Vol] 2.9 g/dL [facility] Glucose [Mass/volume] in Ser um or PlasmaOrdered By: Erlin Felipe 03-07-2023 Glucose [Mass/Vol] 105 mg/dL 70-100 [facility] Comment on above: ADA recommended refe rence rangeRandom Glucose Reference Range is dependent on time and content of last meal. Glucose of more than 200 mg/dL in a nonstressed, ambulatory subject supports the diagnosis of Diabetes Mellitus. Hematocrit Auto (Bld) [Volum e fraction]Ordered By: Erlin Felipe on 03-07-2023 Hematocrit (Bld) [Volume fraction] 39.5 % 34.0-46.4 [facility] Hemoglobin [Mass/volume] in BloodOrdered By: Erlin Felipe on 03-07-2023 Hemoglobin (Bld) [Mass/Vol] 13.8 g/dL 11.8-15.4 [facility] Iron [Mass/volume] in Serum or PlasmaOrdered By: Erlin Felipe on 03-07-2023 Iron [Mass/Vol] 126 ug/dL 50-212 [facility] Iron binding capacity [Mass/ volume] in Serum or PlasmaOrdered By: Erlin Felipe on 03-07-2023 Iron binding capacity [Mass/Vol] 423 ug/dL 255-450 [facility] Iron saturation [Mass Fracti on] in Serum or PlasmaOrdered By: Erlin Felipe on 03-07-2023 Iron saturation [Mass fraction] 29.8 % 20-50 [facility] Leukocytes [#/volume] correc mainor for nucleated erythrocytes in Blood by Automated counOrdered By: Erlin Felipe on 03-07-2023 WBC corrected for nucl RBC Auto (Bld) [#/Vol] 9.0 10*3/uL 3.8-11.6 [facility] Lymphocytes Auto (Bld) [#/Vo l]Ordered By: Erlin Felipe on 03-07-2023 Lymphocytes (Bld) [#/Vol] 2.8 10*3/uL 1.00-4.8 [facility] Lymphocytes/100 WBC Auto (Bl d)Ordered By: Erlin Felipe on 03-07-2023 Lymphocytes/100 WBC (Bld) 31.3 % . [facility] MCH Auto (RBC) [Entitic mass ]Ordered By: Erlin Felipe on 03-07-2023 MCH (RBC) [Entitic mass] 29.0 pg 24.7-34.3 [facility] MCHC Auto (RBC) [Mass/Vol]Or dered By: Erlin Felipe on 03-07-2023 MCHC (RBC) [Mass/Vol] 35.0 g/dL 32.0-35.0 [facility] MCV Auto (RBC) [Entitic vol] Ordered By: Erlin Felipe on 03-07-2023 MCV (RBC) [Entitic vol] 82.7 fL 80-100 [facility] Monocytes Auto (Bld) [#/Vol] Ordered By: Erlin Felipe on 03-07-2023 Monocytes (Bld) [#/Vol] 0.6 10*3/uL 0.0-0.8 [facility] Monocytes/100 WBC Auto (Bld) Ordered By: Erlin Felipe on 03-07-2023 Monocytes/100 WBC (Bld) 6.2 % . [facility] Neutrophils Auto (Bld) [#/Vo l]Ordered By: Erlin Felipe on 03-07-2023 Neutrophils (Bld) [#/Vol] 5.4 10*3/uL 1.8-7.7 [facility] Neutrophils/100 WBC Auto (Bl d)Ordered By: Erlin Felipe on 03-07-2023 Neutrophils/100 WBC (Bld) 60.1 % . [facility] No Panel InformationOrdered By: Erlin Felipe on 03-07-2023 Anti-Nuclear Antibody Comment 2 See comment . [facility] Comment on above: For more information about Hep-2 cell patterns useANApatterns.org, the official website for the InternationalConsensus on Antinuclear Antibody (GAUTAM) Patterns (ICAP). -------A positive GAUTAM result may occur in healthy individuals (lowtiter) or be associated with a variety of diseases. Seeinterpretation chart which is not all inclusive:Pattern Antigen Detected Suggested Disease Association Homogeneous DNA(ds,ss), SLE - High titers Nucleosomes, Histones Drug-induced SLE Speckled Sm, [employer] SOCIAL WORKER, SCL-70, SLE,MCTD,PSS (diffuse form), SS-A/SS-B Sjogrens Nucleolar SCL-70, PM-1/SCL High titers Scleroderma, PM/DM Centromere Centromere PSS (limited form) w/Crest syndrome variable Nuclear Dot Sp100,o30-lllmid Primary Biliary Cirrhosis Nuclear GP210, Primary Biliary CirrhosisMembrane tung A,B,C Performed at: [address] [id number] Director: Rudy Mills PhD, Phone: [phone] Estimated GFR (CKD-EPI) > 60.0 mL/Min [facility] Creatinine Clearance (Chem N/A [facility] Nucleated erythrocytes [Pres ence] in Blood by Automated countOrdered By: Erlin Felipe on 03-07-2023 Nucleated RBC Auto Ql (Bld) 0.1 /100{WBC} 0-0.5 [facility] Platelet mean volume Auto (B ld) [Entitic vol]Ordered By: Erlin Felipe on 03-07-2023 Platelet mean volume (Bld) [Entitic vol] 6.9 fL 6.3-10.7 [facility] Platelets Auto (Bld) [#/Vol] Ordered By: Erlin Felipe on 03-07-2023 Platelets (Bld) [#/Vol] 460 10*3/uL 150-450 [facility] Potassium [Moles/volume] in Serum or PlasmaOrdered By: Erlin Felipe on 03-07-2023 Potassium [Moles/Vol] 4.4 mmol/L 3.5-5.1 [facility] Protein [Mass/volume] in Ser um or PlasmaOrdered By: Erlin Felipe on 03-07-2023 Protein [Mass/Vol] 7.6 g/dL 6.4-8.9 [facility] RBC Auto (Bld) [#/Vol]Ordere d By: Erlin Felipe on 03-07-2023 RBC (Bld) [#/Vol] 4.77 10*6/uL 3.60-5.00 [facility] Serum homogeneous pattern an tinuclear antibody (GAUTAM) titerOrdered By: Erlin Felipe on 03-07-2023 Homogenous nuclear Ab pattern (S) [Titer] N/A [facility] Serum nuclear antibody titer Ordered By: Erlin Felipe on 03-07-2023 Nuclear Ab (S) [Titer] Positive . Fi [facility] Comment on above: Negative <1:80 Borde rline 1:80 Positive >1:80 Serum or plasma albumin/glob ulin mass ratioOrdered By: Erlin Felipe on 03-07-2023 Albumin/Globulin [Mass ratio] 1.6 {ratio} [facility] Serum or plasma anion gap de terminationOrdered By: Erlin Felipe on 07-19-2023 Anion gap [Moles/Vol] 11.6 mmol/L 6.0-15.0 [facility] Serum or plasma rheumatoid f actor measurement (units/volume)Ordered By: Erlin Felipe on 03-07-2023 Rheumatoid factor Qn [IU]/mL <14.0 [facility] Comment on above: Performed at: [address] [id number] Director: Rudy Mills PhD, Phone: [phone] Serum speckled pattern antin uclear antibody (GAUTAM) titerOrdered By: Erlin Felipe on 03-07-2023 Speckled nuclear Ab pattern (S) [Titer] 1:80 . [facility] Comment on above: Dense Fine Speckled pattern is noted. This pattern suggeststhe presence of DFS70 antibody which has a low prevalencein systemic autoimmune rheumatic diseases.ICAP nomenclature: AC-2,4,5,29 Sodium [Moles/volume] in Ser um or PlasmaOrdered By: Erlin Felipe on 03-07-2023 Sodium [Moles/Vol] 137 mmol/L 136-145 [facility] Transferrin [Mass/volume] in Serum or PlasmaOrdered By: Erlin Felipe on 03-07-2023 Transferrin [Mass/Vol] 302 mg/dL 203-362 [facility] Urea nitrogen [Mass/volume] in Serum or PlasmaOrdered By: Erlin Felipe on 03-07-2023 Urea nitrogen [Mass/Vol] 11 mg/dL 7-25 [facility] WBC Auto (Bld) [#/Vol]Ordere d By: Erlin Felipe on 03-07-2023 WBC (Bld) [#/Vol] 9.0 10*3/uL 3.8-11.6 [facility] Alanine aminotransferase [En zymatic activity/volume] in Serum or PlasmaOrdered By: Erlin Felipe on 11-13-2022 ALT [Catalytic activity/Vol] 21 U/L 7-52 [facility] Albumin [Mass/volume] in Ser um or Plasma by Bromocresol green (BCG) dye binding methoOrdered By: Erlin Felipe on 11-13-2022 Albumin BCG dye [Mass/Vol] 4.4 g/dL 3.5-5.7 [facility] Alkaline phosphatase [Enzyma tic activity/volume] in Serum or PlasmaOrdered By: Erlin Felipe on 11-13-2022 ALP [Catalytic activity/Vol] 60 U/L 34-104 [facility] Aspartate aminotransferase [ Enzymatic activity/volume] in Serum or PlasmaOrdered By: Erlin Felipe on 11-13-2022 AST [Catalytic activity/Vol] 19 U/L 13-39 [facility] Basophils Auto (Bld) [#/Vol] Ordered By: Erlin Felipe on 11-13-2022 Basophils (Bld) [#/Vol] 0.1 10*3/uL 0.0-0.2 [facility] Basophils/100 WBC Auto (Bld) Ordered By: Erlin Felipe on 11-13-2022 Basophils/100 WBC (Bld) 1.1 % . [facility] Bilirubin.total [Mass/volume ] in Serum or PlasmaOrdered By: Erlin Felipe on 11-13-2022 Bilirubin [Mass/Vol] 0.2 mg/dL 0.3-1.0 [facility] Calcium [Mass/volume] in Ser um or PlasmaOrdered By: Erlin Felipe 11-13-2022 Calcium [Mass/Vol] 9.7 mg/dL 8.6-10.3 [facility] Carbon dioxide, total [Moles /volume] in Serum or PlasmaOrdered By: Erlin Felipe on 11-13-2022 CO2 [Moles/Vol] 28.4 mmol/L 21.0-31.[address] [facility] Chloride [Moles/volume] in S minh or PlasmaOrdered By: Erlin Felipe 11-13-2022 Chloride [Moles/Vol] 105 mmol/L 98-107 [facility] Cholesterol [Mass/volume] in Serum or PlasmaOrdered By: Erlin Felipe on 11-13-2022 Cholesterol [Mass/Vol] 235 mg/dL 140-200 [facility] Comment on above: Chol less than 200 m g/dl low riskChol 201-239 mg/dl borderline riskChol 240 mg/dl and greater high risk Cholesterol in LDL Calc [Mas s/Vol]Ordered By: Erlin Felipe on 11-13-2022 Cholesterol in LDL [Mass/Vol] 142 mg/dL 0-100 [facility] Comment on above: LDL ATP III CLASSIFI CATIONLDL less than 100 mg/dL OptimalLDL 100-129 mg/dL Near or above optimalLDL 130-159 mg/dL Borderline highLDL 160-189 mg/dL HighLDL greater than 189 mg/dL Very high Cholesterol in VLDL Calc [Ma ss/Vol]Ordered By: Erlin Felipe on 11-13-2022 Cholesterol in VLDL [Mass/Vol] 34 mg/dL [facility] Creatinine [Mass/volume] in Serum or PlasmaOrdered By: Erlin Felipe on 11-13-2022 Creatinine [Mass/Vol] 0.72 mg/dL 0.60-1.20 [facility] Eosinophils Auto (Bld) [#/Vo l]Ordered By: Erlin Felipe on 11-13-2022 Eosinophils (Bld) [#/Vol] 0.2 10*3/uL 0.0-0.45 [facility] Eosinophils/100 WBC Auto (Bl d)Ordered By: Erlin Felipe on 11-13-2022 Eosinophils/100 WBC (Bld) 1.9 % . [facility] Erythrocyte distribution wid th Auto (RBC) [Ratio]Ordered By: Erlin Felipe on 11-13-2022 Erythrocyte distribution width (RBC) [Ratio] 13.4 % 11.9-15.3 [facility] Globulin Calc (S) [Mass/Vol] Ordered By: Erlin Felipe on 11-13-2022 Globulin (S) [Mass/Vol] 2.4 g/dL [facility] Glucose [Mass/volume] in Ser um or PlasmaOrdered By: Erlin Felipe on 11-13-2022 Glucose [Mass/Vol] 133 mg/dL 70-100 [facility] Comment on above: ADA recommended refe rence rangeRandom Glucose Reference Range is dependent on time and content of last meal. Glucose of more than 200 mg/dL in a nonstressed, ambulatory subject supports the diagnosis of Diabetes Mellitus. Glucose mean value [Mass/vol ume] in Blood Estimated from glycated hemoglobinOrdered By: Erlin Felipe on 11-13-2022 Average glucose Estimated from glycated hemoglobin (Bld) [Mass/Vol] 143 mg/dL [facility] Hematocrit Auto (Bld) [Volum e fraction]Ordered By: Erlin Felipe on 11-13-2022 Hematocrit (Bld) [Volume fraction] 39.8 % 34.0-46.4 [facility] Hemoglobin A1c percentageOrd ered By: Erlin Felipe on 11-13-2022 HbA1c (Bld) [Mass fraction] 6.6 % 4.3-5.6 [facility] Comment on above: Increased risk for d iabetes: 5.7 - 6.4diabetes: >6.4glycemic control for adults with diabetes: <7.0 Hemoglobin [Mass/volume] in BloodOrdered By: Erlin Felipe on 11-13-2022 Hemoglobin (Bld) [Mass/Vol] 13.3 g/dL 11.8-15.4 [facility] Laboratory - Chemistry and C hemistry - challengeOrdered By: Erlin Felipe on 11-13-2022 GFR/1.73 sq M.predicted MDRD (S/P/Bld) [Vol rate/Area] mL/min/{1.73_m2} [facility] Leukocytes [#/volume] correc mainor for nucleated erythrocytes in Blood by Automated counOrdered By: Erlin Felipe on 11-13-2022 WBC corrected for nucl RBC Auto (Bld) [#/Vol] 8.6 10*3/uL 3.8-11.6 [facility] Lymphocytes Auto (Bld) [#/Vo l]Ordered By: Erlin Felipe on 11-13-2022 Lymphocytes (Bld) [#/Vol] 2.6 10*3/uL 1.00-4.8 [facility] Lymphocytes/100 WBC Auto (Bl d)Ordered By: Erlin Felipe on 11-13-2022 Lymphocytes/100 WBC (Bld) 30.0 % . [facility] MCH Auto (RBC) [Entitic mass ]Ordered By: Erlin Felipe on 11-13-2022 MCH (RBC) [Entitic mass] 28.4 pg 24.7-34.3 [facility] MCHC Auto (RBC) [Mass/Vol]Or dered By: Erlin Felipe on 11-13-2022 MCHC (RBC) [Mass/Vol] 33.3 g/dL 32.0-35.0 [facility] MCV Auto (RBC) [Entitic vol] Ordered By: Erlin Felipe on 11-13-2022 MCV (RBC) [Entitic vol] 85.1 fL 80-100 [facility] Monocytes Auto (Bld) [#/Vol] Ordered By: Erlin Felipe on 11-13-2022 Monocytes (Bld) [#/Vol] 0.6 10*3/uL 0.0-0.8 [facility] Monocytes/100 WBC Auto (Bld) Ordered By: Erlin Felipe on 11-13-2022 Monocytes/100 WBC (Bld) 7.5 % . [facility] Neutrophils Auto (Bld) [#/Vo l]Ordered By: Erlin Felipe on 11-13-2022 Neutrophils (Bld) [#/Vol] 5.1 10*3/uL 1.8-7.7 [facility] Neutrophils/100 WBC Auto (Bl d)Ordered By: Erlin Felipe on 11-13-2022 Neutrophils/100 WBC (Bld) 59.5 % . [facility] No Panel InformationOrdered By: Erlin Felipe on 11-13-2022 Pharmacy Creatinine Clearance (Chem N/A [facility] Nucleated erythrocytes [Pres ence] in Blood by Automated countOrdered By: Erlin Felipe on 11-13-2022 Nucleated RBC Auto Ql (Bld) 0.1 /100{WBC} 0-0.5 [facility] Platelet mean volume Auto (B ld) [Entitic vol]Ordered By: Erlin Felipe on 11-13-2022 Platelet mean volume (Bld) [Entitic vol] 6.8 fL 6.3-10.7 [facility] Platelets Auto (Bld) [#/Vol] Ordered By: Erlin Felipe on 11-13-2022 Platelets (Bld) [#/Vol] 450 10*3/uL 150-450 [facility] Potassium [Moles/volume] in Serum or PlasmaOrdered By: Erlin Felipe on 11-13-2022 Potassium [Moles/Vol] 4.8 mmol/L 3.5-5.1 [facility] Protein [Mass/volume] in Ser um or PlasmaOrdered By: Erlin Felipe on 11-13-2022 Protein [Mass/Vol] 6.8 g/dL 6.4-8.9 [facility] RBC Auto (Bld) [#/Vol]Ordere d By: Erlin Felipe on 11-13-2022 RBC (Bld) [#/Vol] 4.68 10*6/uL 3.60-5.00 [facility] Serum or plasma albumin/glob ulin mass ratioOrdered By: Erlin Felipe on 11-13-2022 Albumin/Globulin [Mass ratio] 1.8 {ratio} [facility] Serum or plasma anion gap de terminationOrdered By: Erlin Felipe on 11-13-2022 Anion gap [Moles/Vol] 11.4 mmol/L 6.0-15.0 [facility] Serum or plasma high density lipoprotein (HDL) cholesterol measurementOrdered By: Erlin Felipe on 11-13-2022 Cholesterol in HDL [Mass/Vol] 58 mg/dL 35-85 [facility] Comment on above: HDL CHOL ATP-III CLA SSIFICATION Cardiovascular RiskHDL > or equal to 60 mg/dL LOWHDL < 40 mg/dL HIGH Serum or plasma total choles terol/high density lipoprotein (HDL) cholesterol mass ratOrdered By: Erlin Felipe on 11-13-2022 Cholesterol.total/Cholest dawna in HDL [Mass ratio] 4.1 {ratio} <5.0 [facility] Sodium [Moles/volume] in Ser um or PlasmaOrdered By: Erlin Felipe on 11-13-2022 Sodium [Moles/Vol] 140 mmol/L 136-145 [facility] Thyrotropin [Units/volume] i n Serum or PlasmaOrdered By: Erlin Felipe on 11-13-2022 TSH Qn 0.80 m[IU]/L 0.45-5.33 [facility] Triglyceride [Mass/volume] i n Serum or PlasmaOrdered By: Erlin Felipe on 11-13-2022 Triglyceride [Mass/Vol] 173 mg/dL 0-149 [facility] Comment on above: TRIG ATP III CLASSIF ICATIONTRIG less than 150 mg/dL NormalTRIG 150-199 mg/dL Borderline highTRIG 200-500 mg/dL High TRIG greater than 500 mg/dL Very highStandard traceable to the Center for Disease Conrtrol and Prevention (CDC) test method. Urea nitrogen [Mass/volume] in Serum or PlasmaOrdered By: Erlin Felipe on 11-13-2022 Urea nitrogen [Mass/Vol] 9 mg/dL 7-25 [facility] WBC Auto (Bld) [#/Vol]Ordere d By: Erlin Felipe on 11-13-2022 WBC (Bld) [#/Vol] 8.6 10*3/uL 3.8-11.6 [facility] ER URINE PROFILEon 3 Bilirubin Ql (U) Negative Normal NEGATIVE [facility] Comment on above: Performed By: #### E RUR #### [facility] [address] [place] [address] Dr. Marycruz Cool Clarity (U) CLEAR Normal CLEAR [facility] Comment on above: Performed By: #### E RUR #### [facility] [facility] [address] [place] [address] Dr. Marycruz Cool Color (U) YELLOW Normal YELLOW [facility] Comment on above: Performed By: #### E RUR #### [facility] [address] [place] [address] Dr. Marycruz Cool ERUKRISTINA A micrscopic examina tion will be performed if indicated. Normal [facility] Comment on above: Performed By: #### E RUR #### [facility] [address] [place] [address] Dr. Marycruz Cool Glucose Ql (U) Negative Normal NEGATIVE [facility] Comment on above: Performed By: #### E RUR #### [facility] [address] [place] [address] Dr. Marycruz Cool Hemoglobin Ql (U) Negative Normal NEGATIVE [facility] Comment on above: Performed By: #### E RUR #### [facility] [address] [place] [address] Dr. Marycruz Cool Ketones Ql (U) TRACE Abnormal NEGATIVE [facility] Comment on above: Performed By: #### E RUR #### [facility] [address] [place] [address] Dr. Marycruz Cool LEUKOCYTES Negative Normal NEGATIVE [facility] Comment on above: Performed By: #### E RUR #### [facility] [address] [place] [address] Dr. Marycruz Cool Nitrite Ql (U) Negative Normal NEGATIVE [facility] Comment on above: Performed By: #### E RUR #### [facility] [address] [place] [address] Dr. Marycruz Cool pH (U) 6.0 [pH] Normal 5-9 [facility] Comment on above: Performed By: #### E RUR #### [facility] [address] [place] [address] Dr. Marycruz Cool SPEC GRAVITY 1.025 Normal 1.005-<=1. 025 [facility] Comment on above: Performed By: #### E RUR #### [facility] [address] [place] [address] Dr. Marycruz Cool UA PROTEIN Negative Normal NEGATIVE/ TRACE [facility] Comment on above: Performed By: #### E RUR #### [facility] [address] [place] [address] Dr. Marycruz Cool UR MICRO IND NOT INDICATED Normal [facility] Comment on above: Performed By: #### E RUR #### [facility] [address] [place] [address] Dr. Marycruz Cool Urobilinogen Qn (U) 0.2 {Vicente'U}/dL Normal 0.2 - 1. 0 [facility] Comment on above: Performed By: #### E RUR #### [facility] [address] [place] [address] Dr. Marycruz Cool Physician Orderon 09-06-2022 Physician Order [id number] [facility] Basophils Auto (Bld) [#/Vol] Ordered By: Brisa Pat on 06-08-2022 Basophils (Bld) [#/Vol] 0.0 10*3/uL 0.0-0.2 [facility] Basophils/100 WBC Auto (Bld) Ordered By: Brisa Pat on 06-08-2022 Basophils/100 WBC (Bld) 0.6 % . F [facility] Body fluid albumin measureme nt (mass/volume)Ordered By: Brias Pat on 06-08-2022 Albumin (Body fld) [Mass/Vol] 4.4 g/dL 3.2-5.5 [facility] Cholesterol [Mass/volume] in Serum or PlasmaOrdered By: Brisa Pat on 06-08-2022 Cholesterol [Mass/Vol] 266 mg/dL 140-200 [facility] Comment on above: Chol less than 200 m g/dl low riskChol 201-239 mg/dl borderline riskChol 240 mg/dl and greater high risk Cholesterol in LDL Calc [Mas s/Vol]Ordered By: Brisa Pat on 06-08-2022 Cholesterol in LDL [Mass/Vol] 163 mg/dL 0-100 [facility] Comment on above: LDL ATP III CLASSIFI CATIONLDL less than 100 mg/dL OptimalLDL 100-129 mg/dL Near or above optimalLDL 130-159 mg/dL Borderline highLDL 160-189 mg/dL HighLDL greater than 189 mg/dL Very high Cholesterol in VLDL Calc [Ma ss/Vol]Ordered By: Brisa Pat on 06-08-2022 Cholesterol in VLDL [Mass/Vol] 48 mg/dL [facility] Creatinine and Glomerular fi ltration rate.predicted panel (S/P/Bld)Ordered By: Brisa Pat on 06-08-2022 Creatinine [Mass/Vol] 0.77 mg/dL 0.44-1.03 [facility] Eosinophils Auto (Bld) [#/Vo l]Ordered By: Brisa Pat on 06-08-2022 Eosinophils (Bld) [#/Vol] 0.1 10*3/uL 0.0-0.45 [facility] Eosinophils/100 WBC Auto (Bl d)Ordered By: Brisa Pat on 06-08-2022 Eosinophils/100 WBC (Bld) 1.8 % . [facility] Erythrocyte distribution wid th Auto (RBC) [Ratio]Ordered By: Brisa Pat on 06-08-2022 Erythrocyte distribution width (RBC) [Ratio] 13.3 % 11.9-15.3 [facility] Estimated glomerular filtrat ion rate (GFR) non- AmericanOrdered By: Brisa Pat on 06-08-2022 GFR/1.73 sq M.predicted among non-blacks MDRD (S/P/Bld) [Vol rate/Area] > 60 mL/Min [facility] Globulin Calc (S) [Mass/Vol] Ordered By: Brisa Pat on 06-08-2022 Globulin (S) [Mass/Vol] 2.9 g/dL F [facility] Glucose mean value [Mass/vol ume] in Blood Estimated from glycated hemoglobinOrdered By: Brisa Pat on 06-08-2022 Average glucose Estimated from glycated hemoglobin (Bld) [Mass/Vol] 140 mg/dL [facility] Hematocrit Auto (Bld) [Volum e fraction]Ordered By: Brisa Pat on 06-08-2022 Hematocrit (Bld) [Volume fraction] 40.5 % 34.0-46.4 [facility] Hemoglobin A1c percentageOrd ered By: Brisa Pat on 06-08-2022 HbA1c (Bld) [Mass fraction] 6.5 % 4.3-5.6 [facility] Comment on above: Increased risk for d iabetes: 5.7 - 6.4diabetes: >6.4glycemic control for adults with diabetes: <7.0 Hemoglobin [Mass/volume] in BloodOrdered By: Brisa Pat on 06-08-2022 Hemoglobin (Bld) [Mass/Vol] 13.5 g/dL 11.8-15.4 [facility] Laboratory - Hematology and Cell countsOrdered By: Brisa Pat on 06-08-2022 Nucleated RBC/100 WBC (Bld) [Ratio] 0.0 % 0-0.5 [facility] Leukocytes [#/volume] in Blo od by Automated countOrdered By: Brisa Pat on 06-08-2022 WBC (Bld) [#/Vol] 6.3 10*3/uL 4.5-11.0 [facility] Lymphocytes Auto (Bld) [#/Vo l]Ordered By: Brisa Pat on 06-08-2022 Lymphocytes (Bld) [#/Vol] 2.7 10*3/uL 1.00-4.8 [facility] Lymphocytes/100 WBC Auto (Bl d)Ordered By: Brisa aPt on 06-08-2022 Lymphocytes/100 WBC (Bld) 42.7 % . [facility] MCH Auto (RBC) [Entitic mass ]Ordered By: Brisa Pat on 06-08-2022 MCH (RBC) [Entitic mass] 28.2 pg 24.7-34.3 [facility] MCHC Auto (RBC) [Mass/Vol]Or dered By: Brisa Pat on 06-08-2022 MCHC (RBC) [Mass/Vol] 33.4 g/dL 32.0-35.0 [facility] MCV Auto (RBC) [Entitic vol] Ordered By: Brisa Pat on 06-08-2022 MCV (RBC) [Entitic vol] 84.3 fL 80-100 F [facility] Monocytes Auto (Bld) [#/Vol] Ordered By: Brisa Pat on 06-08-2022 Monocytes (Bld) [#/Vol] 0.6 10*3/uL 0.0-0.8 [facility] Monocytes/100 WBC Auto (Bld) Ordered By: Brisa Pat on 06-08-2022 Monocytes/100 WBC (Bld) 8.8 % . F [facility] Neutrophils Auto (Bld) [#/Vo l]Ordered By: Brisa Pat on 06-08-2022 Neutrophils (Bld) [#/Vol] 2.9 10*3/uL 1.8-7.7 [facility] Neutrophils/100 WBC Auto (Bl d)Ordered By: Brisa Pat on 06-08-2022 Neutrophils/100 WBC (Bld) 46.1 % . [facility] No Panel InformationOrdered By: Brisa Pat on 06-08-2022 Estimated GFR () > 60 mL/Min [facility] Comment on above: GFR estimated refere nce range: According to KDOQI guidelines, <60 ml/min/1.73m2 is sufficient to diagnose a patient with chronic kidney disease. Pharmacy Creatinine Clearance (Chem N/A [facility] Platelet mean volume Auto (B ld) [Entitic vol]Ordered By: Brisa Pat on 06-08-2022 Platelet mean volume (Bld) [Entitic vol] 6.8 fL 6.3-10.7 [facility] Platelets Auto (Bld) [#/Vol] Ordered By: Brisa Pat on 06-08-2022 Platelets (Bld) [#/Vol] 450 10*3/uL 150-450 [facility] Prolactin [Mass/volume] in S minh or PlasmaOrdered By: Brisa Pat on 06-08-2022 Prolactin [Mass/Vol] 4.72 ng/mL 3.34-26.72 [facility] Protein [Mass/volume] in Ser um or PlasmaOrdered By: Brisa Pat on 06-08-2022 Protein [Mass/Vol] 7.3 g/dL 6.1-7.9 [facility] RBC Auto (Bld) [#/Vol]Ordere d By: Brisa Pat on 06-08-2022 RBC (Bld) [#/Vol] 4.81 10*6/uL 3.60-5.00 [facility] Serum or plasma alanine oconnor otransferase measurement without P-5'-P (enzymatic activiOrdered By: Brisa Pat on 06-08-2022 ALT No additional P-5'-P [Catalytic activity/Vol] 21 U/L 1060 [facility] Serum or plasma albumin/glob ulin mass ratioOrdered By: Brisa Pat on 06-08-2022 Albumin/Globulin [Mass ratio] 1.5 {ratio} [facility] Serum or plasma alkaline ishan sphatase measurement (enzymatic activity/volume)Ordered By: Brisa Pat on 06-08-2022 ALP [Catalytic activity/Vol] 67 U/L 32-92 [facility] Serum or plasma anion gap de terminationOrdered By: Brisa Pat on 06-08-2022 Anion gap [Moles/Vol] 11.4 mmol/L 6.0-15.0 [facility] Serum or plasma aspartate am inotransferase measurement (enzymatic activity/volume)Ordered By: Brisa Pat on 06-08-2022 AST [Catalytic activity/Vol] 21 U/L 10-42 [facility] Serum or plasma calcium nilsa urement (mass/volume)Ordered By: Brisa Pat on 06-08-2022 Calcium [Mass/Vol] 10.3 mg/dL 8.2-10.2 [facility] Serum or plasma chloride mohamud surement (moles/volume)Ordered By: Brisa Pat on 06-08-2022 Chloride [Moles/Vol] 107 mmol/L 95-114 [facility] Serum or plasma glucose nilsa urement (mass/volume)Ordered By: Brisa Pat on 06-08-2022 Glucose [Mass/Vol] 133 mg/dL 70-100 [facility] Comment on above: ADA recommended refe rence rangeRandom Glucose Reference Range is dependent on time and content of last meal. Glucose of more than 200 mg/dL in a nonstressed, ambulatory subject supports the diagnosis of Diabetes Mellitus. Serum or plasma high density lipoprotein (HDL) cholesterol measurementOrdered By: Brisa Pat on 06-08-2022 Cholesterol in HDL [Mass/Vol] 55 mg/dL 35-85 [facility] Comment on above: HDL CHOL ATP-III CLA SSIFICATION Cardiovascular RiskHDL > or equal to 60 mg/dL LOWHDL < 40 mg/dL HIGH Serum or plasma potassium me asurement (moles/volume)Ordered By: Brisa Pat on 06-08-2022 Potassium [Moles/Vol] 4.1 mmol/L 3.5-5.1 [facility] Serum or plasma sodium measu rement (moles/volume)Ordered By: Brisa Pat on 06-08-2022 Sodium [Moles/Vol] 138 mmol/L 136-146 [facility] Serum or plasma total biliru bin measurement (mass/volume)Ordered By: Brisa Pat on 06-08-2022 Bilirubin [Mass/Vol] 0.6 mg/dL 0.3-1.2 [facility] Serum or plasma total carbon dioxide measurement (moles/volume)Ordered By: Brisa Pat on 06-08-2022 CO2 [Moles/Vol] 23.7 mmol/L 22.0-30.[address] [facility] Serum or plasma total choles terol/high density lipoprotein (HDL) cholesterol mass ratOrdered By: Brisa Pat on 06-08-2022 Cholesterol.total/Cholest dawna in HDL [Mass ratio] 4.8 {ratio} <5.0 [facility] Serum or plasma urea nitroge n measurement (mass/volume)Ordered By: Brisa Pat on 06-08-2022 Urea nitrogen [Mass/Vol] 10 mg/dL 9-23 [facility] TSH DL <= 0.005 mIU/L QnOrde red By: Brisa Pat on 06-08-2022 TSH Qn 0.98 m[IU]/L 0.45-5.33 [facility] Triglyceride [Mass/volume] i n Serum or PlasmaOrdered By: Brisa Adilia on 06-08-2022 Triglyceride [Mass/Vol] 242 mg/dL 35-149 F [facility] Comment on above: TRIG ATP III CLASSIF ICATIONTRIG less than 150 mg/dL NormalTRIG 150-199 mg/dL Borderline highTRIG 200-500 mg/dL High TRIG greater than 500 mg/dL Very highStandard traceable to the Center for Disease Conrtrol and Prevention (CDC) test method. Vital Signs Date Time Vital Sign Value Performing Clinician Faci lity 10-16-2024 10:17-0500 Diastolic blood pressure 78 mm[Hg] Guilherme Dotson DO Work Phone: [facility] 10-16-2024 10:17-0500 Heart rate 71 /min Guilherme Dotson DO Work Phone: [facility] 10-16-2024 10:17-0500 Respiratory rate 16 /min Guilherme Dotson DO Work Phone: [facility] 10-16-2024 10:17-0500 SaO2% (BldA) [Mass fraction] 98 % Guilherme Dotson DO Work Phone: [facility] 10-16-2024 10:17-0500 Systolic blood pressure 126 mm[Hg] Guilherme Dotson DO Work Phone: [facility] 10-16-2024 06:45-0500 Body height 157.48 cm Guilherme Dotson DO Work Phone: [facility] 10-16-2024 06:45-0500 Body temperature 97.6 [degF] Guilherme Dotson DO Work Phone: [facility] 10-16-2024 06:45-0500 Body weight 60 kg Guilherme Dotson DO Work Phone: [facility] 10-15-2024 22:30-0500 Body height 157.48 cm Guilherme Dotson DO Work Phone: [facility] 10-15-2024 22:30-0500 Body temperature 98 [degF] Guilherme Dotson DO Work Phone: [facility] 10-15-2024 22:30-0500 Body weight 60.85 kg Guilherme Dotson DO Work Phone: [facility] 10-15-2024 22:30-0500 Diastolic blood pressure 64 mm[Hg] Guilherme Dotson DO Work Phone: [facility] 10-15-2024 22:30-0500 Heart rate 73 /min Guilherme Dotson DO Work Phone: [facility] 10-15-2024 22:30-0500 Respiratory rate 18 /min Guilherme Dotson DO Work Phone: [facility] 10-15-2024 22:30-0500 SaO2% (BldA) [Mass fraction] 100 % Guilherme Dotson DO Work Phone: [facility] 10-15-2024 22:30-0500 Systolic blood pressure 126 mm[Hg] Guilherme Dotson DO Work Phone: [facility] 03-13-2024 13:58-0400 Body height 157.48 cm Services [facility] Work Phone: [facility] 03-13-2024 13:58-0400 Body temperature 98.2 [degF] Services [facility] Work Phone: [facility] 03-13-2024 13:58-0400 Diastolic blood pressure 91 mm[Hg] Services [facility] Work Phone: [facility] 03-13-2024 13:58-0400 Heart rate 73 /min Services [facility] Work Phone: [facility] 03-13-2024 13:58-0400 Systolic blood pressure 129 mm[Hg] Services [facility] Work Phone: [facility] 11-20-2023 04:35-0400 Diastolic blood pressure 74 mm[Hg] DO Erlin Link Work Phone: [facility] 11-20-2023 04:35-0400 Heart rate 63 /min DO Erlin Link Work Phone: [facility] 11-20-2023 04:35-0400 Respiratory rate 17 /min DO Erlin Link Work Phone: [facility] 11-20-2023 04:35-0400 SaO2% (BldA) [Mass fraction] 97 % DO Erlin Link Work Phone: [facility] 11-20-2023 04:35-0400 Systolic blood pressure 137 mm[Hg] DO Erlin Link Work Phone: [facility] 11-20-2023 01:50-0400 Body height 157.48 cm DO Erlin Link Work Phone: [facility] 11-20-2023 01:50-0400 Body temperature 97.9 [degF] DO Erlin Link Work Phone: [facility] 11-20-2023 01:50-0400 Body weight 61.7 kg DO Erlin Link Work Phone: [facility] 08-25-2023 20:15-0500 Diastolic blood pressure 67 mm[Hg] DO Erlin Link Work Phone: [facility] 08-25-2023 20:15-0500 Heart rate 80 /min DO Erlin Link Work Phone: [facility] 08-25-2023 20:15-0500 Respiratory rate 20 /min DO Erlin Link Work Phone: [facility] 08-25-2023 20:15-0500 SaO2% (BldA) [Mass fraction] 98 % DO Erlin Link Work Phone: [facility] 08-25-2023 20:15-0500 Systolic blood pressure 126 mm[Hg] DO Erlin Link Work Phone: [facility] 08-25-2023 18:52-0500 Body temperature 99.4 [degF] DO Erlin Link Work Phone: [facility] 08-25-2023 16:35-0500 Body height 157.48 cm DO Erlin Link Work Phone: [facility] 08-25-2023 16:35-0500 Body weight 72.57 kg DO Erlin Link Work Phone: [facility] 05-19-2023 17:23-0400 Body height 157.48 cm DO Erlin Link Work Phone: [facility] 05-19-2023 17:23-0400 Body temperature 98.8 [degF] DO Erlin Link Work Phone: [facility] 05-19-2023 17:23-0400 Body weight 72.12 kg DO Erlin Link Work Phone: [facility] 05-19-2023 17:23-0400 Diastolic blood pressure 73 mm[Hg] DO Erlin Link Work Phone: [facility] 05-19-2023 17:23-0400 Heart rate 98 /min DO Erlin Link Work Phone: [facility] 05-19-2023 17:23-0400 Respiratory rate 22 /min DO Erlin Link Work Phone: [facility] 05-19-2023 17:23-0400 SaO2% (BldA) [Mass fraction] 98 % DO Erlin Link Work Phone: [facility] 05-19-2023 17:23-0400 Systolic blood pressure 123 mm[Hg] DO Erlin Link Work Phone: [facility] Encounters Encounter Date Encounter Type Care Provider Facility Start: 12-24-2024 End: 12-24-2024 Navneetboo flowsheet Yasmin Martinez LPC Work Phone: [facility] Start: 12-24-2024 End: 12-24-2024 Bamboo flowsheet Yamsin Martinez LPCC Work Phone: [facility] Start: 12-24-2024 End: 12-24-2024 ambulatory YASMIN K MICHELLE Not Available Comment on above: PTSD (post-traumatic stress disorder) (CMS/HCC); WERNER (generalized anxiety disorder) (CMS/HCC); Major depressive disorder, recurrent episode, moderate (CMS/HCC) Start: 11-27-2024 End: 11-27-2024 Bamboo flowsheet Yasmin K Michelle [facility] Work Phone: [facility] Start: 11-27-2024 End: 11-27-2024 Bamboo flowsheet Yasmin K Michelle [facility] Work Phone: [facility] Start: 11-27-2024 End: 11-27-2024 Clinical Support Yasmin Carroll Michelle [facility] Work Phone: [facility] Comment on above: Major depressive dis order, recurrent episode, moderate (CMS/HCC); PTSD (post-traumatic stress disorder) (CMS/HCC); WERNER (generalized anxiety disorder) (CMS/HCC) Start: 11-11-2024 End: 11-11-2024 ambulatory YASMIN K MICHELLE Not Available Start: 10-27-2024 End: 10-27-2024 ambulatory YASMIN K MICHELLE Not Available Start: 10-20-2024 End: 10-20-2024 Bamboo flowsheet Yasmin K Michelle [facility] Work Phone: [facility] Start: 10-20-2024 End: 10-20-2024 Bamboo flowsheet Yasmin K Michelle [facility] Work Phone: [facility] Start: 10-20-2024 End: 10-20-2024 Clinical Support Yasmin Carroll Michelle [facility] Work Phone: [facility] Comment on above: Major depressive dis order, recurrent episode, moderate (CMS/HCC); PTSD (post-traumatic stress disorder) (CMS/HCC); WERNER (generalized anxiety disorder) (CMS/HCC) Start: 10-16-2024 End: 10-16-2024 Emergency department patient visit Guilherme Dotson DO Work Phone: [facility] Work Phone: Start: 10-15-2024 End: 10-16-2024 Emergency department patient visit Guilherme Dotson DO Work Phone: [facility] Work Phone: Start: 05-20-2024 End: 05-20-2024 [facility]ulatory [facility] Work Phone: [facility] Work Phone: Start: 05-20-2024 End: 05-20-2024 Patient encounter procedure [facility] Work Phone: [facility] Work Phone: Start: 03-19-2024 End: 03-19-2024 Patient encounter procedure [facility] Work Phone: [facility] [place] Work Phone: Start: 03-19-2024 End: 03-19-2024 ambulatory Services [facility] Work Phone: [facility] Work Phone: Start: 03-13-2024 End: 03-13-2024 ambulatory [facility] Work Phone: [facility] Work Phone: Start: 03-13-2024 End: 03-13-2024 Patient encounter procedure [facility] Work Phone: [facility] Work Phone: Start: 03-03-2024 End: 03-03-2024 ambulatory [facility] Work Phone: [facility] Work Phone: Start: 03-03-2024 End: 03-03-2024 Departed Referred Services [facility] Work Phone: [facility] Start: 02-28-2024 End: 02-28-2024 Patient encounter procedure [facility] Work Phone: [facility] [place] Work Phone: Start: 02-28-2024 End: 02-28-2024 ambulatory [facility] Work Phone: [facility] Work Phone: Start: 02-28-2024 End: 02-28-2024 ambulatory SUJATHA POCOS Not Available Start: 02-28-2024 End: 02-28-2024 ambulatory SUJATHA POCOS Not Available Start: 02-16-2024 End: 02-16-2024 Patient encounter procedure [facility] Work Phone: [facility] [place] Work Phone: Start: 02-16-2024 End: 02-16-2024 ambulatory [facility] Work Phone: [facility] Work Phone: Start: 02-08-2024 End: 02-08-2024 Patient encounter procedure [facility] Work Phone: [facility] [place] Work Phone: Start: 02-08-2024 End: 02-08-2024 ambulatory [facility] Work Phone: [facility] Work Phone: Start: 01-19-2024 End: 01-19-2024 Patient encounter procedure [facility] Work Phone: [facility] [place] Work Phone: Start: 01-19-2024 End: 01-19-2024 ambulatory [facility] Work Phone: [facility] Work Phone: Start: 11-20-2023 End: 11-20-2023 Emergency department patient visit DO Erlin Link Work Phone: [facility] Work Phone: Start: 08-25-2023 End: 08-25-2023 Emergency department patient visit DO Erlin Link Work Phone: [facility] Work Phone: Start: 05-19-2023 End: 05-19-2023 Emergency department patient visit DO Erlin Link Work Phone: [facility] Work Phone: Start: 03-30-2023 Chart abstracting Samuel Norman MD Work Phone: Internal Medicine Start: 03-13-2023 End: 03-13-2023 Patient encounter procedure DO Erlin Link Work Phone: [facility] [place] Work Phone: Start: 03-08-2023 End: 03-08-2023 Patient encounter procedure DO Erlin Link Work Phone: [facility] [place] Work Phone: Start: 03-07-2023 End: 03-07-2023 ambulatory DO Erlin C Link Work Phone: [facility] Work Phone: Start: 03-07-2023 End: 03-07-2023 Patient encounter procedure DO Erlin Link Work Phone: [facility] [place] Work Phone: Start: 11-13-2022 End: 11-13-2022 ambulatory DO Erlin C Link Work Phone: [facility] Work Phone: Start: 11-13-2022 End: 11-13-2022 Patient encounter procedure DO Erlin Link Work Phone: [facility] [place] Work Phone: Start: 10-11-2022 End: 10-11-2022 ambulatory JODY CALDERON . Facility: Start: 09-05-2022 End: 09-12-2022 Pre-admission assessment Erlin Fuchs Link [facility] Start: 06-08-2022 End: 06-08-2022 ambulatory DO Erlin Fuchs Link Work Phone: [facility] Work Phone: Start: 06-08-2022 End: 06-08-2022 Patient encounter procedure DO Erlin Felipe Work Phone: [facility] [place] Procedures Date Procedure Procedure Detail Performing Clinician Start: 10-16-2024 Viral nucleic acid assay Guilherme Dotson DO Work Phone: Start: 03-03-2024 Urine culture Services [facility] [employer] Work Phone: Start: 02-16-2024 XR pre/post mri xray Se [facility] [employer] Work Phone: Start: 02-16-2024 MRI of left shoulder Se [facility] [employer] Work Phone: Start: 11-20-2023 SARS-CoV-2, Influenz a & RSV (PCR) DO Erlin Vacunek Work Phone: Start: 11-20-2023 Plain chest X-ray Servi [facility]ly [facility] [employer] Work Phone: Start: 08-25-2023 Plain chest X-ray DO Ad am Link Work Phone: Start: 08-25-2023 SARS-CoV-2, Influenz a & RSV (PCR) DO Erlin Felipe Work Phone: Start: 05-02-2021 Endoscopic carpal tu nnel release Erlin Felipe Amputated finger (finding) A kenneth Link section Erlin Link Exploration using laparoscope Erlin Link H/O: hysterectomy Erlin Link H/O: tubal ligation Erlin Jose holli Plan of Treatment Date Care Activity Detail Author Start: 01-27-2025 End: 01-27-2025 Clinical Support 01/27/2025 3:00 PM EDT Clinical Support [facility] [address] [place] [address] Yasmin Martinez, [facility] [address] [place] [address] [facility] Start: 12-24-2024 End: 12-24-2024 Clinical Support 12/24/2024 1:00 PM EDT Clinical Support [facility] [address] [place] [address] Yasmin Martinez, [facility] [address] [place] [address] [facility] Start: 10-27-2024 End: 10-27-2024 Clinical Support 10/27/2024 12:00 PM EDT Clinical Support [facility] [address] [place] [address] Yasmin Martinez, [facility] [address] [place] [address] [facility] Start: 10-16-2024 [facility] Start: 03-03-2024 Bacteria identified in Urine by Culture [facility] Start: 11-20-2023 Plain chest X-ray XR ribs LT min 3V w CXR1V* [facility] Start: 11-20-2023 XR Unspecified body region Views [facility] Start: 08-25-2023 Plain chest X-ray XR chest 2V* [facility] Start: 08-25-2023 XR Chest 2 Views [facility] Start: 04-20-2023 Influenza vaccination INFLUENZA (#1) [facility] Start: 03-07-2023 [facility] Start: 08-20-2022 DEPRESSION ASSESSMENT DEPRESSION ASSESSMENT [facility] Start: 2019 Mammography MAMMOGRAM [facility] Start: 2009 HPV TESTING HPV TESTING [facility] Start: 2000 PAP TESTING PAP TESTING [facility] Start: 1998 Urine microalbumin profile DTAP,TDAP,TD (1 - Tdap) [facility] Start: 1997 HEPATITIS C SCREENING HEPATITIS C SCREENING [facility] Start: 1997 HIV SCREENING HIV SCREENING [facility] Start: 02-10-1980 COVID-19 VACCINE (#1) COVID-19 VACCINE (#1) [facility] Start: 1979 HEPATITIS B (1 of 3 - 3-dose series) HEPATITIS B (1 of 3 - 3-dose series) [facility] Amphetamines [Presen ce] in Urine by Screen method [facility] Antibody measurement [facility] APTT 50:50 mix [facility] aPTT in Platelet poo r plasma by Coagulation assay [facility] Barbiturates [Presen ce] in Urine by Screen method [facility] Basophils [#/volume] in Blood by Automated count [facility] Basophils/100 leukoc ytes in Blood by Automated count [facility] Benzodiazepines [Pre sence] in Urine [facility] Benzoylecgonine [Pre sence] in Urine [facility] Borrelia burgdorferi Ab [Interpretation] in Serum [facility] Borrelia burgdorferi IgG Ab [Presence] in Serum or Plasma by Immunoassay [facility] Borrelia burgdorferi IgG+IgM Ab [Presence] in Serum by Immunoassay [facility] Borrelia burgdorferi IgM Ab [Presence] in Serum or Plasma by Immunoassay [facility] Cannabinoids [Presen ce] in Urine by Screen method [facility] Cefuroxime free [Mas s/volume] in Serum or Plasma [facility] Chlamydia trachomati s DNA [Presence] in Unspecified specimen by OG with probe detection [facility] Eosinophils/100 leuk ocytes in Blood by Automated count [facility] Herpes simplex virus 1+2 IgG Ab [Units/volume] in Serum by Immunoassay [facility] Herpes simplex virus 2 IgG Ab [Units/volume] in Serum by Immunoassay [facility] HIV 1+2 Ab+HIV1 p24 Ag [Presence] in Serum or Plasma by Immunoassay [facility] Lymphocytes [#/volum e] in Blood by Automated count [facility] Lymphocytes/100 leuk ocytes in Blood by Automated count [facility] Monocytes [#/volume] in Blood by Automated count [facility] Monocytes/100 leukoc ytes in Blood by Automated count [facility] Myeloperoxidase Ab [Units/volume] in Serum by Immunoassay [facility] Neisseria gonorrhoea e DNA [Presence] in Unspecified specimen by OG with probe detection [facility] Neutrophil cytoplasm ic Ab.classic [Titer] in Serum by Immunofluorescence [facility] Neutrophils [#/volum e] in Blood by Automated count [facility] Neutrophils/100 leuk ocytes in Blood by Automated count [facility] Nucleated erythrocyt es [Presence] in Blood by Automated count [facility] Opiates [Presence] in Urine [facility] P-ANCA measurement [facility] Partial thromboplast in time substituted test [facility] Partial thromboplast in time, activated [facility] Patient Education [facility] Work Phone: Patient referral [facility] Work Phone: Phencyclidine [Prese nce] in Urine [facility] Proteinase 3 Ab [Units/volume] in Serum by Immunoassay [facility] Reagin Ab [Presence] in Serum by RPR [facility] Trichomonas vaginali s DNA [Presence] in Unspecified specimen by OG with probe detection [facility] Immunizations Immunization Date Immunization Notes Care Provider Fa sangeetaty 09-23-2020 tetanus toxoid, redu leora diphtheria toxoid, and acellular pertussis vaccine, adsorbed DO Erlin Link Work Phone: [facility] Payers Date Payer Category Payer Medicare (Managed Care) GRZEGORZ VU [id number] 2024 Unknown [id number] 2023 Medicaid [id number] 2023 Private Health Insurance [id number] 2023 Private Health Insurance [id number] 2023 Self-pay [id number] 2005 Medicare [id number] 2005 Medicare [id number] 1979 Unknown [id number]. 593 1979 Unknown [id number]. 1258 1979 Unknown [id number] 840.1.307416.3.579.2. 1258 1979 Unknown [id number] 840.1.302072.3.579.2. 1258 1979 Unknown [id number] .840.1.419114.3.579.2. 1258 1979 Unknown [id number] 840.1.899983.3.579.2. 1258 1979 Unknown [id number] 840.1.409398.3.579.2. 1259 1979 Unknown [id number] 2.16.840.1.446698.3.579.2. 1259 1959 Medicaid [id number] 1959 Medicare [id number] Medicare Medicare Nonpatient [id number] 3A [id number] Private Health Insurance [employer] [employer] [id number] Unknown [id number] 2.16.840.1.279760.3.579.2. 531 Unknown [id number] 2.16.840.1.696437.3.579.2. 531 Unknown [id number] 2.16.840.1.598418.3.579.2. 531 Unknown [id number] 2.16.840.1.966566.3.579.2. 531 Unknown [id number] 2.16.840.1.490142.3.579.2. 531 Unknown [id number] 2.16.840.1.469644.3.579.2. 531 Unknown [id number] 2.16.840.1.999527.3.579.2. 531 Unknown [id number] 2.16.840.1.129689.3.579.2. 531 Unknown [id number] 2.16.840.1.998243.3.579.2. 531 Social History Date Type Detail Facility Start: 03-10-2022 End: 02-28-2024 Tobacco smoking status NHIS Never smoked tobacco (finding) [facility] Start: 1980 Sex Assigned At Female [facility] Tobacco smoking status No Smoking Status Entered [facility] Start: 02-28-2024 Sex Assigned At Female [facility] Tobacco smoking status AKIS Tobacco smoking consumption unknown [facility] Work Phone: Start: 1980 Sex Assigned At Not on file [facility] Start: 10-16-2024 End: 10-16-2024 Sex Female (finding) [facility] Start: 02-28-2024 Tobacco use and exposure Smokeless tobacco non-user [facility] Start: 02-28-2024 Alcoholic beverage intake Ex-drinker (finding) [facility] Start: 02-28-2024 History of Social function [facility] NEGATED: Highlighted row [facility] Clinical Notes 03-30-2023 to 10-16-2024 Samuel Norman MD - 03/30/2023 9:21 AM EDT Note Date & Type Note Facility 10-16-2024 Hospital Discharg e instructions Additional Instructions Please return to emergency department for any new or worrisome symptoms including any worsening abdominal pain, vomiting, fever, chest pain, shortness of breath. Plenty fluids over the next 24 to 48 hours and follow-up with your family physician within the next [address] [facility] Work Phone: 03-30-2023 Note HNO ID: [id number] Author: Samuel Norman MD Service: ? Author Type: Physician Type: Progress Notes Filed: 03/30/2023 9:38 AM Note Text: Reviewed. Reason for consult: Exposure to carotid pedal. Persistent rash since. Has seen dermatology with no improvement Referring provider's name: Dr. Felipe, 42-year-old woman with migraine, general anxiety disorder, low back and neck pain, metabolic syndrome, prediabetes, s/p hysterectomy in 2014, C-sections x 3, BMI 29.4 # per note on 03/26/23: Continues to have skin lesion on her skin in her hands, abdomen, and legs. States that remain thick and irritated. She reminds me that this started with a carpet beetle infestation in her home and she is concerned that the bites could have been some form of parasitosis. She states that she would like to see ID. She denies any exposure to outside sources, denies any new insect exposure, and has had several exterminators through her home. She had not yet returned to dermatology and she did not have a good response when she saw him...exam showed: crusted demarcated facial rans on the upper lip, lower lip past the vermilion border, forehead, and nasum now with clean base and appears to be healing with good fresh skin. # labs 03/13/2023: A1c 6.4, SSA/SSB antibodies negative, scleroderma 70 antibody negative, S[employer] WORK[employer] antibody negative, Pike antibody negative, CCP negative, ferritin 52, RA negative, GAUTAM borderline 1: 80, BUN 11, creatinine 0.89, WBC 9.0, hemoglobin 13.8, platelet 460k. I have reviewed the available records and referral. Does the patient need to be scheduled? No If no, please leave brief impression: called Dr. Felpie's office and discussed case and states he had an extensive psychiatry history and appears to have excoriation perez and she reports that she has been pulling worms out of her face. If no, this decision was discussed with patient or referring provider on: 03/30/23 Samuel Norman MD March 30, 2023 [facility] 03-30-2023 History of Presen t illness Narrative Reviewed. Reason for consult: Exposure to carotid pedal. Persistent rash since. Has seen dermatology with no improvement Referring provider's name: Dr. Felipe, 42-year-old woman with migraine, general anxiety disorder, low back and neck pain, metabolic syndrome, prediabetes, s/p hysterectomy in 2014, C-sections x 3, BMI 29.4 # per note on 03/26/23: Continues to have skin lesion on her skin in her hands, abdomen, and legs. States that remain thick and irritated. She reminds me that this started with a carpet beetle infestation in her home and she is concerned that the bites could have been some form of parasitosis. She states that she would like to see ID. She denies any exposure to outside sources, denies any new insect exposure, and has had several exterminators through her home. She had not yet returned to dermatology and she did not have a good response when she saw him...exam showed: crusted demarcated facial rans on the upper lip, lower lip past the vermilion border, forehead, and nasum now with clean base and appears to be healing with good fresh skin. # labs 03/13/2023: A1c 6.4, SSA/SSB antibodies negative, scleroderma 70 antibody negative, [employer] WORK[employer] antibody negative, Pike antibody negative, CCP negative, ferritin 52, RA negative, GAUTAM borderline 1: 80, BUN 11, creatinine 0.89, WBC 9.0, hemoglobin 13.8, platelet 460k. I have reviewed the available records and referral. Does the patient need to be scheduled? No If no, please leave brief impression: called Dr. Felipe's office and discussed case and states he had an extensive psychiatry history and appears to have excoriation perez and she reports that she has been pulling worms out of her face. If no, this decision was discussed with patient or referring provider on: 03/30/23 Samuel Norman MD March 30, 2023 documented in this encounter [facility] Evaluation + Plan note No data available for this section [facility] Evaluation note No assessment inform ation available [facility] Work Phone: Evaluation note Diagnosis Onset Date Positive test for herpes sim plex virus (HSV) antibody acute Skin lesions, generalized ac [place] [facility] Work Phone: Evaluation note* Diagnosis Onset Date Resolution Status Positive test for herpes simplex virus (HSV) antibody acute Skin lesions, generalized ac [place] Trigger finger of right thumb acute [facility] Work Phone: Evaluation note* Diagnosis Major depressive disorder, recurrent episode, moderate ([facility]) Major depressive disorder, recurrent episode, moderate PTSD (post-traumatic stress disorder) ([facility]) Posttraumatic stress disorder WERNER (generalized anxiety disorder) ([facility]) Generalized anxiety disorder [facility] Diagnosis Major depressive disorder, recurrent episode, moderate ([facility]) Major depressive disorder, recurrent episode, moderate PTSD (post-traumatic stress disorder) ([facility]) Posttraumatic stress disorder WERNER (generalized anxiety disorder) ([facility]) Generalized anxiety disorder [facility]* Diagnosis PTSD (post-traumatic stress disorder) ([facility]) Posttraumatic stress disorder WERNER (generalized anxiety disorder) ([facility]) Generalized anxiety disorder Major depressive disorder, recurrent episode, moderate ([facility]) Major depressive disorder, recurrent episode, moderate documented in this encounter [facility] Discharge instructions No data available for this section [facility] Additional Instructions Take Phenergan suppositories if needed for nausea vomiting Avoid spicy, hot, fried foods Rest Follow-up with your PCP Return here [facility] any problems [facility] Work Phone: Progress note No data available for this section [facility]* Behavioral Health - Outpatient (Routine) - Closed Specialty Diagnoses / Procedures Referred By Bart gupta Referred To Contact Behavioral Health Diagnoses Generalized anxiety disorder ([facility]) Procedures PA PSYCHIATRIC DIAGNOSTIC EVALUATION [facility] [address] [place] [address] Phone: tel: fax: [facility] [address] [place] [address] Phone: tel: fax: Referral ID Status Reason Start Date Expiration Date Visits Re quested Visits Authorized [id number] Closed 10/08/2024 04/06/[address] [facility] Chief Complaint and Reason for Visit Chief Complaint Z79.899 Chief Complaint r73.03 Chief Complaint R53.82 Chief Complaint R53.82 E88.81 R73.03 M54.5 M25.50 R76.0 back pain Chief Complaint VOMITING, CHEST PAIN Chief Complaint VOMITING, CHEST PAIN CP, Cough Chief Complaint CP, Cough M25.50 R53.82 Chief Complaint CP, Cough M25.50 R53.82 z11.3 Chief Complaint CP, Cough M25.50 R53.82 z11.3 M25.512 Chief Complaint M25.50 R53.82 z11.3 M25.512 z11.3 Chief Complaint M25.50 R53.82 z11.3 M25.512 z11.3 R30.0 Chief Complaint M25.50 R53.82 z11.3 M25.512 z11.[address] Guilherme Dotson Chief Complaint M25.50 R53.82 z11.3 M25.512 z11.[address] Guilherme Dotson Z79.899;R53.82 Reason for Visit Positive test for he rpes simplex virus (HSV) antibody Skin lesions, generalized Chief Complaint z11.[address] Guilherme Dotson Z79.899;R53.82 CONSULT [facility] RT THUMB TRIGGER FINGER Reason for Visit Positive test for he rpes simplex virus (HSV) antibody Skin lesions, generalized Trigger finger of right thumb Chief Complaint Admit Date stomach pain, nausea October 15, 2024 10:26pm Chief Complaint Admit Date stomach pain, nausea October 15, 2024 10:26pm Abdominal Pain, Vomiting October 16, 2024 6:39am Advance Directives Advance Directive Response Recorded Date/ Time Advance Directives No June 10:23am Advance Directive Response Recorded Date/ Time Advance Directives No June 9:23am Summary Purpose Family History Relationship Condition Age at Onset Recorded Date/T mayra father Cerebrovascular accident (CVA) Unknown Additional Source Comments Care Teams (unrecognized sec tion and content) Team Status: Inactive Member Role Status Dates Erlin Felipe , Primary Care Provider Active JUAN ChlidsC Attending Provider Active Team Status: Active Member Role Status Dates Erlin Felipe , DO Primary Care Provider Active Team Status: Inactive Member Role Status Dates Erlin Felipe DO Primary Care Provider, Attending Selena dumont Active [employer] Relationship Specialty Start Date End Date Marin Garcia [address] [place] [phone] PCP - General 05/10/10 Erlin Feilpe MD [address] [place] [phone] Referring Family Medicine 03/27/23 Team Status: Inactive Member Role Status Dates Erlin Felipe DO Primary Care Provider Active Anthony Adamson APRN Emergency Provider Active Team Status: Inactive Member Role Status Dates Erlin Felipe , DO Primary Care Provider Active Carolyn Low APRN Emergency Provider Active Team Status: Active Member Role Status Dates [facility] Primary Care Provider Ac tive Team Status: Inactive Member Role Status Dates Erlin Felipe DO Primary Care Provider Active St art: August 25, 2023 End: August 25, 2023 Carolyn Low APRN Emergency Provider Active Start: August 25, 2023 End: August 25, 2023 Team Status: Inactive Member Role Status Dates [facility] Primary Care Provider Ac tive Start: November 20, 2023 End: November 20, 2023 Adolfo Tsai , Emergency Provider Active St art: November 20, 2023 End: November 20, 2023 Team Status: Inactive Member Role Status Dates On License Of [facility] Care Provider Ac tive Start: January 19, 2024 End: January 19, 2024 Guilherme Dotson DO Attending Provider Active St art: January 19, 2024 End: January 19, 2024 Team Status: Inactive Member Role Status Dates On License Of [facility] Care Provider Ac tive Start: February 08, 2024 End: February 08, 2024 Guilherme Dotson DO Attending Provider Active St art: February 08, 2024 End: February 08, 2024 Team Status: Inactive Member Role Status Dates On License Of [facility] Care Provider Ac tive Start: February 16, 2024 End: February 16, 2024 Guilherme Dotson DO Attending Provider Active St art: February 16, 2024 End: February 16, 2024 Team Status: Inactive Member Role Status Dates On License Of [facility] Care Provider Ac tive Start: February 28, 2024 End: February 28, 2024 Guilherme Dotson DO Attending Provider Active St art: February 28, 2024 End: February 28, 2024 Team Status: Inactive Member Role Status Elisabet Dotson DO Attending Provider Active St art: March 03, 2024 End: March 03, 2024 Team Status: Active Member Role Status Elisabet Dotson DO Primary Care Provider Active Team Status: Inactive Member Role Status Elisabet Monreal MD Attending Provider Active Sta rt: March 13, 2024 End: March 13, 2024 Guilherme Dotson DO Primary Care Provider Active Start: March 13, 2024 End: March 13, 2024 Team Status: Inactive Member Role Status Elisabet Dotson DO Primary Care Provider Active Start: March 19, 2024 End: March 19, 2024 Brisa Pat NP-C Attending Provider Active S tart: March 19, 2024 End: March 19, 2024 Team Status: Inactive Member Role Status Dates Amanda Streeter MD Attending Provider Active Start: May 20, 2024 End: May 20, 2024 Guilherme Dotson DO Primary Care Provider Active Start: May 20, 2024 End: May 20, 2024 Team Status: Inactive Member Role Status Dates Guilherme Dotson DO Primary Care Provider Active Start: October 15, 2024 End: October 16, 2024 Adolfo Tsai DO Emergency Provider Active St art: October 15, 2024 End: October 16, 2024 Team Status: Inactive Member Role Status Dates Guilherme Dotson DO Primary Care Provider Active Start: October 16, 2024 End: October 16, 2024 Sandra Desai MD Emergency Provider Active Start: October 16, 2024 End: October 16, 2024 Galdino Ulloa MD RES Active Start: October 16, 2024 End: October 16, 2024 [employer] Relationship Specialty Start Date End Date Guilherme Dotson MD [address] [place] [id number] PCP - General Family Medicine 02/25/24 [employer] Relationship Specialty Start Date End Date Guilherme Dotson MD [address] [place] [id number] PCP - General Family Medicine 02/25/24 [employer] Relationship Specialty Start Date End Date Guilherme Dotson MD [address] [place] [phone] PCP - General Family Medicine 02/25/24 [employer] Relationship Specialty Start Date End Date Guilherme Dotson MD [address] [place] [id number] PCP - General Family Medicine 02/25/24 Goals (unrecognized section and content) Goals may be documented in a n alternate section No data available for this sectionGoals may be documented in an alternate sectionGoals may be documented in an alternate sectionGoals may be documented in an alternate sectionGoals may be documented in an alternate sectionGoals may be documented in an alternate sectionGoals may be documented in an alternate sectionGoals may be documented in an alternate sectionGoals may be documented in an alternate sectionGoals may be documented in an alternate sectionGoals may be documented in an alternate sectionGoals may be documented in an alternate sectionGoals may be documented in an alternate sectionGoals may be documented in an alternate sectionGoals may be documented in an alternate sectionGoals may be documented in an alternate section INFORMATION SOURCE (unrecogn ized section and content) DATE CREATED AUTHOR 09/07/2022 Arnoldo Jane [facility] DATE CREATED AUTHOR AUTHOR'S ORGANIZ ATION 10/12/2022 [facility] DATE CREATED AUTHOR AUTHOR'S ORGANIZ ATION 03/31/2023 [facility] DATE CREATED AUTHOR AUTHOR'S ORGANIZ ATION 10/30/2024 [facility] DATE CREATED AUTHOR AUTHOR'S ORGANIZ ATION 12/27/2024 [facility] [facility] EPIC Source Comments (unrecognize d section and content) In the event this informatio n is protected by the Federal Confidentiality of Alcohol and Drug Abuse Patient Records regulations: The Federal rules restrict any use of the information to criminally investigate or prosecute any alcohol or drug abuse patient.[facility] FOR RECORDS PERTAINING TO PATIENTS WHO ARE OR HAVE BEEN ENROLLED IN A CHEMICAL DEPENDENCY/SUBSTANCEABUSE PROGRAM, SOME INFORMATION MAY BE OMITTED. This clinical summary was aggregated from multiple sources. Caution should be exercised in using it in the provision of clinical care. This summary normalizes information from multiple sources, and as a consequence, information in this document may materially change the coding, format and clinical context of patient data. In addition, data may be omitted in some cases. CLINICAL DECISIONS SHOULD BE BASED ON THE PRIMARY CLINICAL RECORDS. [facility]. provides no warranty or guarantee of the accuracy or completeness of information in this document.
== END 2025-01-13 16:48 | disposition home or self-care (01) ==
PROVIDERS: Emergency Provider Emergency Medicine; PCP Student in an Organized Health Care Education/Training Program
DX: H11.32 Conjunctival hemorrhage, left eye (principal)
CPT/HCPCS: 99282